=== PATIENT | male | born 1985 | race Caucasian/White ===

== ENCOUNTER 2018-05-07 06:21 | Day surgery (SDC) | payer BC, OTHER ==
[2018-05-02 14:29] LABS: Albumin 4.2 g/dL (3.4-5.0); Bilirubin Direct 0.1 mg/dL (0-0.2); Bilirubin Total 0.5 mg/dL (0.2-1.0); Potassium 4.4 mmol/L (3.5-5.1); Protein, Total 7.7 g/dL (6.4-8.2)
--- OUTSIDE RECORDS SUMMARY | 2018-05-07 06:23 | XMS REPORT | Summary of Care ---
:1985 Author Organization [facility] [place] Address [address], [place] [address]- Encounter HQ Encntr_alias(FIN) [id number] Date(s): 03/11/17 - 03/11/17 [facility] [place] [address] [place] [address]- [phone] Discharge Disposition: Home or Self Care Attending Physician: Maldonado Urias MD Vital Signs No data available for this section Problem List No data available for this section Allergies, Adverse Reactions, Alerts Substance Reaction Severity Status NKDA Active Medications No data available for this section Results No data available for this section Immunizations No data available for this section Procedures No data available for this section Social History No data available for this section Assessment and Plan No data available for this section
--- OUTSIDE RECORDS SUMMARY | 2018-05-07 06:23 | XMS REPORT | Continuity of Care Document ---
:1985 Author Organization Interface Problems Problem Status Onset Classification Date Comments Source Date Reported Complex tear of 10/12/2017 [facility] lateral meniscus, 8 current injury, left knee, subsequent encounter LT KNEE Active [facility] 7 S80.02XA - Active [facility] "CONTUSION OF 7 [place] LEFT KNEE, INIT EYE/ BLURRINESS Active [address] Pain in left knee 10/12/2017 [facility] Stiffness of left 07/31/2017 [facility] knee, not elsewhere classified Muscle weakness 07/31/2017 [facility] Other muscle 07/31/2017 [facility] spasm Localized edema 07/31/2017 [facility] Unspecified 07/31/2017 [facility] abnormalities of gait and mobility Medications Medication Details Route Status Patient Ordering Order Source Instructions Provider Date ofloxacin 2 drp, LEFT LEFT EYE Active [facility] ophthalmic EYE, QID, 5 013 Medical 0.3% solution ml, Center Substitute Allowed Allergies, Adverse Reactions, Alerts Substance Category Reaction Severity Reaction Status Date Comments Source type Reported Immunizations Immunization Date Given Site Status Last Updated Comments Source Results Order Results Value Reference Date Interpretation Comments Source Name Range Knee wo Knee wo EXAM: MR RIGHT KNEE WITHOUT CONTRAST 03/11 - [facility] contrast contrast /2016 - [place] [facility] MRI This report was dictated by a Fine Sander/Fellow. I have personally reviewed the images as well as the Resident's interpretation and agree with the findings. DATE: 03/11/2017 3:00 PM NEEDLE MOLDER Read by: Peterson Hernandez DO Resident: Peterson Hernandez DO Dictated Date/time: 03/12/17 07:54 Electronically Signed by: Lillie Arguelles MD 03/12/17 12:21 FINAL REPORT INDICATION: - S80.01XA Contusion of right knee, initial encounter, right knee pain after slipping 3 weeks ago COMPARISON: None. TECHNIQUE: Multiplanar, multisequence noncontrast MR imaging of the knee. UT SECTION: MSK FINDINGS: MENISCI: Medial meniscus: Intact. Nonspecific PD signal within the posterior horn of the medial meniscus. No meniscal tears. Capsular ligaments intact. Lateral meniscus: Intact. Capsular ligaments intact. LIGAMENTS: ACL: The anterior cruciate ligament is intact.. PCL: The posterior cruciate ligament is intact. MCL: Mild edema seen around the MCL which may relate to low-grade sprain. No tears. LCL complex: The lateral collateral ligament complex is intact. EXTENSOR MECHANISM: The quadriceps tendon, patella and the patellar tendon are intact. MUSCLES: No signal abnormality in the muscles. CARTILAGE: Patellofemoral compartment: Deep chondral fissuring at the trochlear groove without underlying subchondral edema. Patellar cartilage is maintained. Medial compartment: No chondral defects. Lateral compartment: No chondral defects. BONE: No fractures. Visualized bone marrow signal is normal. SOFT TISSUE: There is a multiloculated leaky Lopez's cyst with leakage and fluid seen tracking along the superior fascial planes. Trace joint fluid . Minimal amount fluid in the deep infrapatellar bursa. No abnormality of the neurovascular structures. IMPRESSION: 1. Grade 1 MCL sprain. 2. Focal chondral fissuring of the trochlear groove. 3. Leaking Lopez's cyst. Knee wo Knee wo EXAM: MR LEFT KNEE WITHOUT CONTRAST 01/21 - [facility] contrast contrast /2016 - [place] [facility] MRI This report was dictated by a Fine Sander/Fellow. I have personally reviewed the images as well as the Resident's interpretation and agree with the findings. DATE: 01/21/2017 11:28 AM CDT Read by: Rajat Gant ( Fellow Resident: Rajat Gant (Fellow Dictated Date/time: 01/21/17 15:47 Electronically Signed by: Jatin Vega MD 01/22/17 02:54 FINAL REPORT INDICATION: Left knee pain, history of ACL reconstruction in August 2015 COMPARISON: None. TECHNIQUE: Multiplanar, multisequence noncontrast MR imaging of the knee. FINDINGS: MENISCI: Medial meniscus: Minimal undersurface irregularity of the posterior horn of the medial meniscus. Capsular ligaments intact. Lateral meniscus: Focal high signal and undersurface irregularity of the posterior root ligament. Intrasubstance degeneration of the anterior horn with adjacent multiseptated 1.4 x 1.4 x 1.0 cm para meniscal cyst, consistent with prior injury. LIGAMENTS: ACL: Postsurgical changes related to prior ACL graft reconstruction with intact ACL graft.. Graft angle is 65 degrees. 1.6 cm focus of arthrofibrosis anterior to the ACL graft. No cystic change or expansion of the tibial or femoral tunnels. PCL: The posterior cruciate ligament is intact. MCL: The medial collateral ligament is intact. LCL: The lateral collateral ligament complex is intact. EXTENSOR MECHANISM: The quadriceps tendon, patella and the patellar tendon are intact. MUSCLES: No signal abnormality in the muscles. CARTILAGE: Patellofemoral compartment: Minor fraying of the patellar apex. Full- thickness cartilage loss of the trochlear groove without underlying reactive bone marrow edema. Medial compartment: Minor partial thickness cartilage fissuring of the medial third of the medial compartment. Lateral compartment: Diffuse thinning of the posterior flexion zone cartilage with no focal chondral defect. BONE: No fractures. Visualized bone marrow signal is normal. SOFT TISSUE: Small joint effusion. Small popliteal cyst. No abnormality of the neurovascular structures. IMPRESSION: 1. Intact ACL graft with small focus of arthrofibrosis anterior to the graft. 2. Intrameniscal degenerative change of the anterior horn of the lateral meniscus with adjacent para meniscal cyst, compatible with prior injury. 3. High signal and undersurface irregularity of the posterior root ligament of the lateral meniscus. 4. Full-thickness cartilage fissuring of the trochlear groove. 5. Diffuse cartilage thinning of the posterior flexion zone of the lateral femoral condyle. Vital Signs Vital Sign Value Date Comments Source Weight 117.273 04/28/2012 [facility] Height 190.50 cm 04/28/2012 [facility] Encounters Location Location Encounter Encounter Reason Attending ADM DC Status Source Details Type Number For Provider Date Date Visit [facility] Emergency [id number] PATEL 04/28 04/28 Active [facility] /2012 [facility] Outpt Diag [id number] Maldonado 01/21 01/22 [facility] [place] [facility] Outpt Diag [id number] Maldonado 03/11 03/12 [facility] Outpatient Services [facility] [place] [facility] OP Therapy [id number] Maldonado 03/26 04/25 [facility] Patients [facility] OP Therapy [id number] Maldonado 04/26 05/26 [facility] Patients [facility] OP Therapy [id number] Maldonado 06/07 07/07 [facility] Patients [facility] Procedures Procedure Code Date Perfomer Comments Source
--- OUTSIDE RECORDS SUMMARY | 2018-05-07 06:23 | XMS REPORT | Summary of Care ---
:1985 Author Organization [facility] Address Unavailable , Encounter HQ Dustin(JADE) [id number] Date(s): 03/26/17 - 04/24/17 [facility] Encounter Diagnosis Complex tear of lateral meniscus, current injury, left knee, subsequent encounter (Final) - 04/29/17 Pain in left knee (Final) - Stiffness of left knee, not elsewhere classified (Final) - Muscle weakness (generalized) (Final) - Other muscle spasm (Final) - Localized edema (Final) - Unspecified abnormalities of gait and mobility (Final) - Discharge Disposition: Home or Self Care Attending [...]
--- OUTSIDE RECORDS SUMMARY | 2018-05-07 06:23 | XMS REPORT | CCD ---
:1985 Author Organization [facility] Care Team Providers Name Role Phone Gaurang Rose Consult[employer] Provider Allergies, Adverse Reactions, Alerts Substance Reaction Status NKDA Active Medications Medication Instructions Start Date End Date Status ofloxacin ophthalmic 0.3% 2 drp, LEFT EYE, QID, 5 ml, 04/28/2012 Ordered solution Substitute Allowed Vital Signs Most recent to oldest [Reference Range]: 1 Height 190.50 cm (04/28/2012 14:22:00) Weight 117.273 kg (04/28/2012 14:22:00)
--- OUTSIDE RECORDS SUMMARY | 2018-05-07 06:23 | XMS REPORT | Summary of Care ---
:1985 Author Organization [facility] Address Unavailable , Encounter HQ Sinar_adilene(JADE) [id number] Date(s): 03/26/17 - 04/24/17 [facility] Discharge Disposition: Home or Self Care Attending [...]
--- OUTSIDE RECORDS SUMMARY | 2018-05-07 06:23 | XMS REPORT | Summary of Care ---
:1985 Author Organization [facility] [place] Address [address] [place], [place] [address]- Encounter HQ Encntr_alias(FIN) [id number] Date(s): 01/21/17 - 01/21/17 [facility] [place] [address] [place] [address]- [phone] Discharge Disposition: Home or Self Care Attending [...]
--- OUTSIDE RECORDS SUMMARY | 2018-05-07 06:24 | XMS REPORT | Summary of Care ---
:1985 Author Organization [facility] Address Unavailable , Encounter HQ Sinavarsha_manpetar(JADE) [id number] Date(s): 06/07/17 - 07/06/17 [facility] Encounter Diagnosis Complex tear of lateral meniscus, current injury, left knee, subsequent encounter (Final) - 07/12/17 Pain in left knee (Final) - Discharge Disposition: Home or Self [...]
--- OUTSIDE RECORDS SUMMARY | 2018-05-07 06:24 | XMS REPORT ---
:1985 Author Organization [facility] Address [address] [place] [address] Dr. Trujillo [address] [place] [address] Care Team Providers Name Role Phone Unavailable Unavailable Unavailable Problems This patient has no known problems. Allergies, Adverse Reactions, Alerts This patient has no known allergies or adverse reactions. Medications This patient has no known medications.
--- OUTSIDE RECORDS SUMMARY | 2018-05-07 06:24 | XMS REPORT | Summary of Care ---
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 Quantity: 30 Refills: 0 JHON VILLATORO Start : 20-Mar-2017 Active Allergies and Adverse Reactions Name Dates Details Allergy history not documented Status: Procedures Procedure Dates Details [U] XR KNEE 4 OR MORE VWS BILATERAL Date: 11-Mar-2017 Immunization Name Dates Details Immunizations not documented Social History Name Dates Details Unknown if ever smoked Vital Signs Date Test Result Details No Known Vitals to report Results Date Description Value Details Results not documented Plan of Care Name Dates Details Planned Observations Planned Goals not documented Planned Encounters Appointment; JHON MAURICIO, P.AChristelle On: 07-May-2017 13:45 Interventions Provided Labs/Procedures/Imaging[U] XR KNEE 4 OR MORE VWS BILATERAL; To Be Done: 11 Mar 2017[U] XRAY KNEE 4 OR MORE VWS BILATERAL [id number]; Done: 11 Mar 2017 Instructions Name Dates Details Instructions not documented Encounters Appointment; DARIAN KAPLAN NP On: 21-Jan-2017 9:30 Encounter Diagnosis: Problem not documented Appointment; DARIAN KAPLAN NP On: 28-Jan-2017 15:45 Encounter Diagnosis: Problem not documented Appointment; JHON MAURICIO P.A. On: 11-Mar-2017 11:30 Encounter Diagnosis: Problem not documented
--- OUTSIDE RECORDS SUMMARY | 2018-05-07 06:24 | XMS REPORT | Summary of Care ---
:1985 Author Organization [facility] Address Unavailable , Encounter HQ Sinar_manpetar(JADE) [id number] Date(s): 04/26/17 - 05/25/17 [facility] Encounter Diagnosis Complex tear of lateral meniscus, current injury, left knee, subsequent encounter (Final) - 05/29/17 Pain in left knee (Final) - Discharge [...]
[2018-05-07] MEDS ORDERED: Ringers Lactate 1,000 ML IV ONE (06:36)
[2018-05-07] MEDS ORDERED: GLYCOPYRROLATE 0.2 MG/ML SYR ONE ×2 (07:29)
[2018-05-07] MEDS ORDERED: ROCURONIUM 50 MG/5 ML VIAL IV ONE ×2 (07:29→08:50)
[2018-05-07] MEDS ORDERED: PROPOFOL 200 MG/20 ML VIAL IV ONE (07:29)
[2018-05-07] MEDS ORDERED: LIDOCAINE 2% MPF 5 ML VIAL ONE ×2 (07:30→08:48)
[2018-05-07] MEDS ORDERED: MIDAZOLAM HCL 2 MG/2 ML INJ ONE (07:31)
[2018-05-07] MEDS ORDERED: FENTANYL CITR 250 MCG/5 ML ONE (07:31)
[2018-05-07] MEDS ORDERED: ONDANSETRON 4 MG/2 ML VIAL ONE (07:36)
[2018-05-07] MEDS ORDERED: CEFOXITIN/SWI 1gm 1 GM/10 ML SYR ONE (08:00)
[2018-05-07] MEDS: BUPIVACAINE 0.5% PF 10 ML VIAL ONE ×2 (08:19→08:58)
[2018-05-07] MEDS: Ringers Lactate 1,000 ML IV ONE ×2 (08:40→08:58)
[2018-05-07] MEDS ORDERED: BUPIVACAINE 0.5% PF 10 ML VIAL ONE (09:07)
[2018-05-07] MEDS ORDERED: Mastisol Adhesive Liq ONE (09:12)
[2018-05-07] MEDS: FENTANYL CITR 250 MCG/5 ML ONE ×4 (09:37→09:56)
[2018-05-07] MEDS ORDERED: ONDANSETRON HCL 40 MG/20 ML VIAL ONE (10:04)
--- NOTE | 2018-05-07 10:20 | P.BOP ---
Preoperative diagnosis: acute cholecystitis, biliary dyskinesia, RUQ abd pain Postoperative diagnosis: same, intrabdominal adhesions Primary procedure: Laparoscopic cholecystectomy Secondary procedure: Laparoscopic lysis of adhesions Supervisor [employer]: Diana Reeder) Estimated blood loss: <10cc Specimen: gb Findings: see dictation Anesthesia: General Complications: None Transferred to: Recovery Room Condition: Good
[2018-05-07] MEDS ORDERED: KETOROLAC 30 MG/ML INJ ONE (10:24)
[2018-05-07] MEDS ORDERED: CODEINE 30MG/APAP 300MG TAB ONE (11:05)
[2018-05-07 13:02] VITALS: TEMP 97.6
[2018-05-07 13:04] VITALS: BP 127/57; O2SAT 97
--- NOTE | 2018-05-07 21:34 | OP ---
Date of Procedure: 05/07/2018 Surgeon: Aneudy Hernandez MD Preoperative Diagnosis: Acute cholecystitis. Postoperative Diagnoses: 1.Acute cholecystitis. 2.Intraabdominal adhesions. Anesthesia: General plus local. Procedures: Laparoscopic cholecystectomy, laparoscopic lysis of adhesions. Indications: This is the case of a 33-year-old patient who comes to us with on and off abdominal sharlene n, epigastric, right upper quadrant, radiating to the back, with nausea and vomiting, postprandial. He has been trying to control his diet, but is still not improving. He was diagnosed with biliary dy skinesia and cholecystitis. He was also to see his finishing operator to evaluate other diagnosis in the differential diagnosis. He wants the gallbladder removed. So, the benefits, alternatives, and risks of laparoscopic, possible open cholecystectomy were fully explained, which included, but were n ot limited to infection, bleeding, damage to adjacent structures, anesthesia complications, choledoch olithiasis, bile leak, pancreatitis, SD, and even . He also understands this may not relieve an y symptoms. He might need more than one surgical intervention. He understood and signed a consent. Description Of Procedure: The patient was brought to the operating room and placed in supine positio n. Anesthesia was done without complication. Abdominal area was prepped and draped in usual sterile fashion. Marcaine 0.5% was injected for local anesthetic followed by sharp incision of the skin in the infraumbilical region. Incision was carried down to fascia, which was opened under direct vision . Peritoneum was encountered, opened under direct vision. Vicryl #1 was placed inside the fascia. Magali trocar was carefully introduced. No bleeding was obtained. I placed 3 more trocars, 5 mm eac h one of them, in the right upper quadrant under direct visualization. This allowed me to visualize the area of the gallbladder. There were many adhesions of omentum to the gallbladder and liver. In order for me to continue with surgery, I had to do the lysis of adhesions. So, we took some extra ti me, used Endo Kamran, connected to Bovie cauterizer, and carefully removed the adhesions to the oment um. Then, once the adhesions were down, we were able to visualize the infundibulum better and also t he triangle of Calot. We visualized the triangle of Calot, obtaining critical view of safety. Cysti c duct and cystic artery were clearly isolated free circumferentially, and a connection between those and the gallbladder was clearly identified. I proceeded to ligate those by using at least 3 clips p roximal, 1 clip distal, and ligation in the middle. The same was done with the cystic artery. No bi le leak. No bleeding. The gallbladder was removed from liver using Bovie cauterizer and removed fro m abdominal cavity using an EndoCatch through the umbilical incision. The area was inspected once ag ain. The area of the lysis of adhesions was intact with no bleeding. Clips were intact with no bile leak and no bleeding. At that moment, I proceeded to remove the trocars under direct vision, deflat ed pneumoperitoneum, closed the fascia with #1 Vicryl, irrigated subcutaneous tissue, closed that wit h 3-0 chromic, and skin in subcuticular fashion with 3-0 chromic and Steri-Strips on top. Sponge cou nt and instrument counts were correct. The patient tolerated the procedure well. The patient was se nt to recovery in stable condition. RANDAL/MIKI Voice ID: [id number] Report ID: [id number]
--- NOTE | 2018-05-07 21:37 | DS ---
Date of Discharge: 05/07/2018 Diagnoses: Acute cholecystitis and biliary dyskinesia. Procedure: Laparoscopic cholecystectomy. Disposition: Home. Activity: As tolerated. No heavy lifting. Followup: Follow up in my office in 1 week. Call for appointment at [phone]. Keep the area dry fo r 48 hours, then may shower. Keep Steri-Strips intact. Medications: For medications, see orders. RANDAL/MIKI Voice ID: [id number] Report ID: [id number]
== END 2018-05-07 11:55 | disposition home or self-care (01) ==
LOC: OR 06:21
PROVIDERS: ATTEND Surgery
PROC: 0DNW4ZZ Release Peritoneum, Percutaneous Endoscopic Approach (ICD-10-PCS; 2018-05-07)
PROC: 0FT44ZZ Resection of Gallbladder, Percutaneous Endoscopic Approach (ICD-10-PCS; principal; 2018-05-07 07:30)
DX: K81.0 Acute cholecystitis (principal); K66.0 Peritoneal adhesions (postprocedural) (postinfection); K82.8 Other specified diseases of gallbladder; Z88.8 Allergy status to other drugs, medicaments and biological substances; Z80.0 Family history of malignant neoplasm of digestive organs; Z80.1 Family history of malignant neoplasm of trachea, bronchus and lung; Z80.3 Family history of malignant neoplasm of breast; Z80.8 Family history of malignant neoplasm of other organs or systems; Z82.49 Family history of ischemic heart disease and other diseases of the circulatory system; Z83.3 Family history of diabetes mellitus
CPT/HCPCS: 36415; 80048; 80076; 82150; 83690; 85025; 88304; J2250; J2405; J2704; J3010

== ENCOUNTER 2021-05-22 07:00 | Emergency (ER) | payer BC ==
--- OUTSIDE RECORDS SUMMARY | 2021-05-22 07:05 | XMS REPORT | Continuity of Care Document ---
:1985 Author Organization [facility] t Address [address] [place] [address] Care Team Providers Name Role Phone Unavailable Unavailable Unavailable Problems Condition Condition Condition Status Onset Resolution Last Treating Co mments Source Name Details Category Date Date Treatment Clinician Date LT KNEE Diagnosis Active 2016-042017-06-14 Me [place]ia 2-11 14:01:00 l LT KNEE 08:00: [place] 00 Active 03/25/2017 [facility] S80.02XA - Diagnosis Active 2016-042017-01-21 [facility] "CONTUSION 0-02 10:55:00 l OF LEFT S80.02XA 00:01: [place]ra nn KNEE, INIT - 00 "CONTUSION OF LEFT KNEE, INIT Active 01/14/2017 [facility] [place] EYE/ Diagnosis Active 2012-04-28 Mem oria BLURRINESS 1-14 16:23:00 l EYE/ 00:00: [place] BLURRINESS 00 Active 04/28/2012 [facility] Pain in Problem 2017-10-12 Lencho merritt left knee 11:09:46 l Pain in [place] left knee 10/12/2017 [facility] Stiffness Problem 2017-07-31 Me moria of left 14:52:42 l knee, not [place] elsewhere Stiffness classified of left knee, not elsewhere classified 07/31/2017 [facility] Muscle Problem 2017-07-31 Memor ia weakness 14:52:42 l (generaliz Muscle Herm lacie ed) weakness (generaliz ed) 07/31/2017 [facility] Other Problem 2017-07-31 Memor ia muscle 14:52:42 l spasm Other [place] muscle spasm 07/31/2017 [facility] Localized Problem 2017-07-31 Me moria edema 14:52:42 l [place] Localized edema 07/31/2017 [facility] Unspecifie Problem 2017-07-31 M emoria d 14:52:42 l abnormalit Tobi n ies of Unspecifie gait and d mobility abnormalit ies of gait and mobility 07/31/2017 [facility] History of Past Illness Condition Condition Condition Status Onset Resolution Last Treating Co mments Source Name Details Category Date Date Treatment Clinician Date Complex Problem 2017-2017-10-12 2017-10-12 [facility] tear of 3-31 11:09:46 11:09:46 l lateral Complex 04:46: Tobi alfaro meniscus, tear of 56 current lateral injury, meniscus, left knee, current subsequent injury, encounter left knee, subsequent encounter 07/13/2017 10/12/2017 [facility] Allergies, Adverse Reactions, Alerts This patient has no known allergies or adverse reactions. Social History Social Habit Start Date Stop Date Quantity Comments Source Social History 2017-03-12 2017-03-12 [facility] 05:59:00 05:59:00 Medications Ordered Filled Start Stop Current Ordering Indication Dosage Frequency Signature Comments Components Source Medication Medication Date Date Medication? Clinician (SIG) Name Name ofloxacin Yes Gaurang 2 drp, Lencho merritt ophthalmic 14 [place] LEFT EYE, l 0.3% 22:05: Rose QID, 5 ml, Deidra nn solution 24 Substitute Allowed Vital Signs Vital Name Observation Time Observation Value Comments Source Weight 2012-04-28 20:22:00 [facility] Height 2012-04-28 20:22:00 190.50 cm [facility] Procedures This patient has no known procedures. Encounters Start End Encounter Admission Attending Care Care Encounter Source Date/Time Date/Time Type Type Clinicians Facility Department ID 2019-05-11 2019-05-12 Outpt Diag nullFlavo [facility] [id number] [facility] 20:05:00 05:59:00 Services r Outpatient 02 l [place] 2017-06-07 2017-07-07 OP Therapy nullFlavo [facility] [id number] Memoria 19:00:00 04:59:00 Patients r 02 l [place] 2017-04-26 2017-05-26 OP Therapy nullFlavo [facility] [id number] Memoria 16:00:00 05:59:00 Patients r 01 l [place] 2017-03-26 2017-04-25 OP Therapy nullFlavo [facility] [id number] Memoria 14:31:00 05:59:00 Patients r 00 l [place] 2017-03-11 2017-03-12 Outpt Diag [facility]Flavo [facility] [id number] Memoria 20:21:00 05:59:00 Services r Outpatient 01 l Imaging [place] 2017-01-21 2017-01-22 Outpt Diag [facility]Flavo [facility] [id number] Mem[facility] 15:47:00 04:59:00 Services r Outpatient 00 l [facility] 2012-04-28 2012-04-28 Emergency nullFlavo [facility] [id number] Memoria 14:07:00 16:17:00 r Medical 00 l [facility] Results This patient has no known results.
--- OUTSIDE RECORDS SUMMARY | 2021-05-22 07:05 | XMS REPORT | Clinical Summary ---
:1985 Author Organization [facility] MD [facility] Address [address] [place] [address] Care Team Providers Name Role Phone Layton Huerta MD Primary Care Provider Cassie Camara MD Unavailable Allergies Active Allergy Reactions Severity Noted Date Comments Celecoxib Itching, Rash Low 04/13/2017 Medications Medication Sig Dispensed Refills Start Date End Date Status amitriptyline 0 01/15/2020 Activ e (ELAVIL) 25 mg tablet omeprazole 0 01/15/2020 Active (PriLOSEC) 20 mg capsule ondansetron 0 01/18/2020 Active (ZOFRAN) 4 mg tablet prazosin 0 11/05/2019 Active (MINIPRESS) 5 mg capsule sertraline 0 12/22/2019 Active (ZOLOFT) 100 mg tablet sildenafil 0 11/16/2019 Active (VIAGRA) 50 MG tablet zolpidem (AMBIEN) 0 11/29/2019 A ctive 5 mg tablet gabapentin 0 10/04/2020 Active (NEURONTIN) 300 mg capsule baclofen 0 10/04/2020 Active (LIORESAL) 10 mg tablet HYDROcodone-acetam Take 1 tablet 40 tablet 0 11/30/2020 Active inophen (NORCO) 5 by mouth mg-325 mg per every 6 (six) tabletIndications: hours as Prostate nodule, needed for Acute moderate postoperative pain pain. neomycin enema 500 Insert 1 120 mL 0 10/28/2020 Discontinued MG/120 ML enema (500 mg 1 (Stop Taking at (AMB-CMPD)Indicati total) D ischarge) ons: Prostate rectally as nodule directed for a single dose. HYDROcodone-acetam Take 1 tablet 40 tablet 0 11/01/2020 Discontinued inophen (NORCO) 5 by mouth 1 (R eorder) mg-325 mg per every 6 (six) tabletIndications: hours as Prostate nodule, needed for Acute moderate postoperative pain pain. HYDROcodone-acetam Take 1 tablet 40 tablet 0 11/28/2020 Discontinued inophen (NORCO) 5 by mouth 1 (R eorder) mg-325 mg per every 6 (six) tabletIndications: hours as Prostate nodule, needed for Acute moderate postoperative pain pain. Active Problems Problem Noted Date Prostate nodule 02/05/2020 Encounters Date Type Specialty Care Team Description 01/05/2021 Refill Pain Medicine Del Cadena MD Prostate nod ule; Acute postopera tive pain 11/30/2020 Orders Only Pain Medicine Del Cadena MD Prostate nod ule; Acute postopera tive pain 11/25/2020 Refill Pain Medicine Del Cadena MD Prostate nod ule; Acute postopera tive pain 11/03/2020 Telephone Urology Steven Lara PA 11/01/2020 Orders Only Pain Medicine Del Cadena MD Prostate nod ule (Primary Dx); Other chronic p ostoperative pain; Acute postopera tive pain 11/01/2020 Orders Only Pain Medicine Joby Godoy MD 10/31/2020 Anesthesia Event Ambulatory Surgery Mian Agustin MD Van Wagenen, Kathleen A, LADY 10/31/2020 Surgery Ambulatory Surgery Brandon Huerta NEEDLE B IOPSY OF MD Layton PROSTATE(IN OR) 10/31/2020 Hospital Encounter Ambulatory Surgery Brandon Huerta Pr ostate nodule - MD Layton (Primary Dx) 11/01/2020 10/31/2020 Travel 10/28/2020 Anesthesia Event Anesthesiology Felix Pandya RN 10/28/2020 POEM Appointments Anesthesiology Brandon Huerta Prostat e nodule MD Layton 10/28/2020 Hospital Encounter Lab Brandon Huerta Prostate nodule MD [place] 10/28/2020 Clinical Support Covid Brandon Huerta Suspected COVID-19 (Primary Dx); MD Layton Prostate nodule Mark Fleming RN 10/28/2020 Travel 10/19/2020 Orders Only Urology Steven Lara, Prostate nod ye PA (Primary Dx) 10/12/2020 Telephone Urology Steven Lara PA 10/12/2020 Prep for Surgery Urology Steven Lara, Prostate nodule PA (Primary Dx) 10/07/2020 Office Visit Urology Brandon Huerta Prostate nodul e MD Layton 10/07/2020 Hospital Encounter Lab Brandon Huerta Prostate nodule MD Lay[place] 10/07/2020 Prep for Surgery Genitourinary Kokorogrant, Oncology MD Barron 10/07/2020 Travel 07/24/2020 Orders Only Covid Jordana, SARS-CoV-2 MD Arnie vaccination after 05/22/2020 Surgical History Surgery Date Site/Laterality Comments CHOLECYSTECTOMY 08/13/2018 - laproscopic 09/12/2018 ANTERIOR CRUCIATE LIGAMENT 04/15/2014 - Left REPAIR 04/14/2015 MEDIAL COLLATERAL LIGAMENT 04/15/2016 - Left AND LATERAL COLLATERAL 04/14/2017 LIGAMENT REPAIR, KNEE EGD 01/14/2020 - 02/13/2020 COLONOSCOPY 04/15/2019 - 05/15/2019 STOMACH SURGERY MN BIOPSY OF 10/31/2020 Anus/N/A Procedure: NEEDL E BIOPSY PROSTATE,NEEDLE/PUNCH OF PROSTAT E(IN OR); Surgeon: Brandon Huerta MD; Loca tion: [facility]; Servic e: UROLOGY MN CHG ECHO,TRANSRECTAL 10/31/2020 Anus/N/A Procedur e: ULTRASOUND, TRANSRECTAL; Jimenez rgeon: Brandon mancia MD; Location: [facility]; Service: UROLOGY MN CHG 3D RENDERING 10/31/2020 Anus/N/A Procedure: 3 D IMAGE W/INTERP&POSTPROC DIFF WORK ROBERT CARDOSO, CT/MRI/US STATION WITH INDEPENDENT WORKSTATION; Jimenez rgeon: Brandon mancia MD; Location: [facility]; Service: UROLOGY Medical History Medical History Date Comments Pancreatitis Acid reflux Posttraumatic stress disorder Family History Medical History Relation Name Comments Prostate cancer Brother Thyroid cancer Brother Colon cancer Father Kidney cancer Father Liver cancer Father Lung cancer Father Pancreatic cancer Father Prostate cancer Father Pancreatic cancer Maternal Grandfather Pancreatic cancer Maternal Grandmother Breast cancer Mother Relation Name Status Comments Brother Father Maternal Grandfather Maternal Grandmother Mother Social History Tobacco Use Types Packs/Day Years Used Date Light Tobacco Smoker Smokeless Tobacco: Never Used Alcohol Use Standard Drinks/Week Comments Not Currently 0 (1 standard drink = 0.6 oz pure alcoho l) Sex Assigned at Date Recorded Not on file Job Start Date Occupation Industry Not on file Not on file Not on file Obstetrics History Last Filed Vital Signs Vital Sign Reading Time Taken Comments Blood Pressure 110/67 11/01/2020 12:56 PM CDT Pulse 88 11/01/2020 12:56 PM CDT Temperature 36.9 C (98.4 F) 11/01/2020 12:56 PM CDT Respiratory Rate 12 11/01/2020 12:56 PM CDT Oxygen Saturation 95% 11/01/2020 12:56 PM CDT Inhaled Oxygen Concentration - - Weight 104.7 kg (230 lb 13.2 oz) 10/07/2020 12:53 PM CDT Height 190.5 cm (6' 3") 10/07/2020 12:53 PM CDT Body Mass Index 28.85 10/07/2020 12:53 PM CDT Plan of Treatment Health Maintenance Due Date Last Done Comments COVID-19 Vaccination (1) 1990 Procedures Procedure Name Priority Date/Time Associated Comments Diagnosis POC GLUCOSE SCREEN Routine 10/31/2020 8:19 Resul ts for this PM CDT procedure are i n the results section. POC GLUCOSE SCREEN Routine 10/31/2020 4:00 Resul ts for this PM CDT procedure are i n the results section. 3D IMAGE RENDERING, 10/31/2020 2:[address]/MRI/US WITH PM CDT INDEPENDENT WORKSTATION ULTRASOUND, TRANSRECTAL 10/31/2020 2:50 Prostate nodu le PM CDT NEEDLE BIOPSY OF 10/31/2020 2:50 Prostate nodule PROSTATE(IN OR) PM CDT PATHOLOGY BIOPSY Routine 10/31/2020 12:34 Prostate nodule Resu lts for this INTERPRETATION PM CDT procedure are in the results section. COVID-19 (SARS-COV-2) Routine 10/28/2020 9:39 Suspected COVID -19 Results for this PCR-ASYMPTOMATIC MC AM CDT procedur e are in the results section. CLOT EXPIRATION DATE Routine 10/28/2020 9:20 Res ults for this AM CDT procedure are i n the results section. TMP INTERPRETATION Routine 10/28/2020 9:20 Resul ts for this ANTIBODY SCREEN NEGATIVE AM CDT pro cedure are in the results section. ANTIBODY SCREEN Routine 10/28/2020 9:20 Prostate nodule Resul ts for this AM CDT procedure are i n the results section. ABORH Routine 10/28/2020 9:20 Prostate nodule Results for this AM CDT procedure are i n the results section. FRACTIONATED BILIRUBIN Routine 10/28/2020 9:20 Prostate nodul e Results for this AM CDT procedure are i n the results section. TOTAL PROTEIN Routine 10/28/2020 9:20 Prostate nodule Results for this AM CDT procedure are i n the results section. ASPARTATE Routine 10/28/2020 9:20 Prostate nodule Results for this AMINOTRANSFERASE AM CDT procedure a re in the results section. ALANINE AMINOTRANSFERASE Routine 10/28/2020 9:20 Prostate nod ule Results for this AM CDT procedure are i n the results section. ALKALINE PHOSPHATASE Routine 10/28/2020 9:20 Prostate nodule Results for this AM CDT procedure are i n the results section. ALBUMIN LEVEL Routine 10/28/2020 9:20 Prostate nodule Results for this AM CDT procedure are i n the results section. CALCIUM LEVEL TOTAL Routine 10/28/2020 9:20 Prostate nodule R esults for this AM CDT procedure are i n the results section. .GLOMERULAR FILTRATION Routine 10/28/2020 9:20 Prostate nodul e Results for this RATE AM CDT procedure are i n the results section. SERUM CREATININE Routine 10/28/2020 9:20 Prostate nodule Resu lts for this AM CDT procedure are i n the results section. ELECTROLYTE PANEL Routine 10/28/2020 9:20 Prostate nodule Res ults for this AM CDT procedure are i n the results section. BLOOD UREA NITROGEN Routine 10/28/2020 9:20 Prostate nodule R esults for this AM CDT procedure are i n the results section. GLUCOSE LEVEL Routine 10/28/2020 9:20 Prostate nodule Results for this AM CDT procedure are i n the results section. MANUAL DIFFERENTIAL Routine 10/28/2020 9:20 Prostate nodule R esults for this AM CDT procedure are i n the results section. Results CBC Routine 10/28/2020 9:20 Prostate nodule Results for this AM CDT procedure are i n the results section. TYPE AND SCREEN Routine 10/28/2020 9:20 Prostate nodule AM CDT HEMOGLOBIN A1C Routine 10/28/2020 9:20 Prostate nodule Result s for this AM CDT procedure are i n the results section. COMPREHENSIVE METABOLIC Routine 10/28/2020 9:20 Prostate nodu le PANEL AM CDT COMPLETE BLOOD COUNT W/ Routine 10/28/2020 9:20 Prostate nodu le DIFFERENTIAL AM CDT CONFIRM ABORH TYPE Routine 10/28/2020 9:17 Resul ts for this AM CDT procedure are i n the results section. GUA Routine 10/28/2020 9:11 Prostate nodule Results for this AM CDT procedure are i n the results section. MRI MULTI RECONSTRUCTION Routine 10/19/2020 2:05 Prostate nod ule Results for this ON INDEPENDENT PM CDT procedure are in WORKSTATION the results section. PROSTATE SPECIFIC Routine 10/07/2020 12:44 Prostate nodule Res ults for this ANTIGEN PM CDT procedure are i n the results section. after 05/22/2020 Results (ABNORMAL) POC Glucose Screen (10/31/2020 8:19 PM CDT)Only the most recent of2 resultswithin the time period is included. POC Glucose 111 (H) 70 - 99 mg/dL POC [facility] Comment: RN Notified Capillary blood samples, e.g . obtained by fingerstick, may have inaccurate results in patients with decreased peripheral blood flow. Method description: All resu lts are measured using Electrochemistry test methodology. The glucose in the sample mixes with the reagents on the test strip. The reaction produces an electric current. The amount of current produced is proportional to the glucose concentration in the blood. PO Sample Type Capillary POC [facility], [address], [place] [address]; Manager Service Desk: Anahi Velazco MD Specimen Blood Performing Organization Address City/State/ZIP Code Phon e Number POC [facility] Pathology Biopsy Interpretation (10/31/2020 12:34 PM CDT) Pathologist Sig nature Submitted Clinical Prostate nodule [facility] History [N40.2] Diagnosis A: Prostate gland, 1. left lateral base: [facility] Electronically signed Fibromuscular tissue, and, t hick smooth muscle bundles, no prostatic glands or tumor present. by Isabelle Valdes MD on 11/02/2020 at B: Prostate gland, 2. left lateral mid: 10:19 PM Prostatic tissue, no tumor present. C: Prostate gland, 3. left lateral apex: Prostatic tissue, no tumor present. D: Prostate gland, 4. left medial base: Prostatic tissue, no tumor present. E: Prostate gland, 5. left medial mid: Prostatic tissue, no tumor present. F: Prostate gland, 6. left medial apex: Prostatic tissue, no tumor present. G: Prostate gland, 7. right medial base: Prostatic tissue, no tumor present. H: Prostate gland, 8. right medial mid: Prostatic tissue, no tumor present. I: Prostate gland, 9. right medial apex: Prostatic tissue, no tumor present. J: Prostate gland, 10. right lateral base: Prostatic tissue, no tumor present. K: Prostate gland, 11. right lateral mid: Prostatic tissue, no tumor present. L: Prostate gland, 12. right lateral apex: Prostatic tissue with focal atrophy, and, focal chronic inflammation, no tumor present. PXT/FAS1 Gross Description A: [facility] Prostate gland, 1. left late ral base: 1 pink-red core biopsy 0.6 x 0.1 cm, entirely submitted in A1. JX B: Prostate gland, 2. left late ral mid: 1 pale-orozco core biopsy 1.1 x 0.1 cm, entirely submitted in B1. JX C: Prostate gland, 3. left late ral apex: 1 pale-orozco core biopsy 1.4 x 0.1 cm, entirely submitted in C1. JX D: Prostate gland, 4. left medi al base: 1 pale-orozco core biopsy 0.6 x 0.1 cm, entirely submitted in D1. JX E: Prostate gland, 5. left medi al mid: 1 pale-orozco core biopsy 0.5 x 0.1 cm, entirely submitted in E1. JX F: Prostate gland, 6. left medi al apex: 1 pale-orozco core biopsy 0.4 x 0.1 cm, entirely submitted in F1. JX G: Prostate gland, 7. right med ial base: 1 pale-orozco core biopsy 1.2 x 0.1 cm, entirely submitted in G1. JX H: Prostate gland, 8. right med ial mid: 1 pale-orozco core biopsy 1.2 x 0.1 cm, entirely submitted in H1. JX I: Prostate gland, 9. right med ial apex: 1 pale-orozco core biopsy 1.3 x 0.1 cm, entirely submitted in I1. JX J: Prostate gland, 10. right la teral base: 1 pale-orozco core biopsy 1.6 x 0.1 cm, entirely submitted in J1. JX K: Prostate gland, 11. right la teral mid: 1 pale-orozco core biopsy 1.4 x 0.1 cm, entirely submitted in K1. JX L: Prostate gland, 12. right la teral apex: 1 pale-orozco core biopsy 1.5 x 0.1 cm, entirely submitted in L1. JX Disclaimer "Some tests reported [facility] here may have been developed and performance characteristics determined by [facility] Pathology and Laboratory Medicine. These tests have not been specifically cleared or approved by the U.S. Food and Drug Administration. If applicable, controls were reviewed and showed appropriate reactivity." Specimen Tissue - Prostate Gland Tissue - Prostate Gland Tissue - Prostate Gland Tissue - Prostate Gland Tissue - Prostate Gland Tissue - Prostate Gland Tissue - Prostate Gland Tissue - Prostate Gland Tissue - Prostate Gland Tissue - Prostate Gland Tissue - Prostate Gland Tissue - Prostate Gland Performing Organization Address City/State/ZIP Code Phon e Number [facility] [place] [address] [address] COVID-19 (SARS-CoV-2) PCR-Asymptomatic (10/28/2020 9:39 AM CDT) COVID19 (SARS Not Detected Not Detected [facility] CoV-2) Result Comment: [facility] This test is a qualitative r everse-transcriptase polymerase chain reaction (RT- PCR) developed for the Kristian SHAUNA 6800 system and intended for the detection of SARS CoV-2 RNA in human nasopharyngeal specimens from patients who meet COVID- 19 clinical and/or epidemiological crite merritt. This assay has been approved by the FDA for use only under Emergency Use Authorization (EUA) in laboratories that have been CLIA-certified to perform moderate-complexity and high-complexity tests. The performance characteristics of this assa y were verified by the Microbiology Laboratory at [facility], CLIA Accreditation #: [id number] and CAP Accreditation #: [id number]. Results must be interpreted within the context of all relevant clinical and laboratory findings and shou ld not form the sole basis for a diagnosis or treatment decision. "Presumptive Positive" resul ts are due to partial amplification of SARS-CoV-2 targets and indicates low amounts of virus present in the specimen at or near the limit of detection. Regardless, individuals with "Presumptive Positive" results should be managed per institutional gu idelines as individuals positive for SARS-CoV-2 virus, including use of appropriate infection control protocols. Internal controls are includ ed to assess for possible amplification inhibitors. If inhibition is detected, testing is repeated and if inhibition is confirmed the specimen is resulted as "Invalid". When an "Invalid" result occur, it is recommended to wait 3 days before submitting a new specimen for nicki ting if clinically indicated. COVID19 SARS [employer]PERVISOR Swab [facility] COVID19 SARS Pre-OR Procedure [facility] Indication CANCER CENTER Specimen Nasopharyngeal Swab Performing Organization Address [facility] Phon e Number [facility] CANCER Unless otherwise noted, [address] all lab tests performed by: Division of Pathology and Laboratory Medicine [address] [place] [address] .Serum Creatinine (10/28/2020 9:20 AM CDT) Pathologist [facility] Creatinine 0.87Comment: Testing 0.67 - 1.17 mg/dL [facility] Performed at [facility] Direct Service Provider [facility], [facility] [facility], [address], [place] [id number] Specimen Blood Performing Organization Address [facility] Phon e Number [facility] [address] [facility] [place] [place] [address] [address] (ABNORMAL) .CBC (10/28/2020 9:20 AM CDT) Pathologist [facility] WBC 5.1 4.0 - 11.0 K/uL [facility] RBC 5.17 4.50 - 6.00 [facility] M/uL Hgb 16.2Comment: As part 14.0 - 18.0 [facility] of CBC or as an gm/dL individual orderable testing performed at [facility] Direct Service Provider [facility], [address] [place] [address], [address], [place] [address] Hct 47.7Comment: As part 40.0 - 54.0 % [facility] of CBC or as an individual orderable testing performed at [facility], [address] [place] [address], [address], [place] [address] MCV 92 82 - 98 fL [facility] MCH 31.3 (H) 27.0 - 31.0 pg [facility] MCHC 34.0 31.0 - 36.0 [facility] gm/dL RDW-SD 41.0 35.1 - 46.3 fL [facility] RDW-CV 12.0 12.0 - 15.5 % [facility] Platelet count 217Comment: As part 140 - 440 K/uL [facility] of CBC or as an individual orderable testing performed at [facility], [address] [place] [address], [address], [place] [address] MPV 9.0 4.0 - 10.4 fL [facility] INRBC 0.0 <=0.0 % [facility] Comment: The INRBC (instrument NRBC) value reflects the enumera tion of nucleated red blood cells contained in a 200uL samp le of whole blood analyzed by the instrument. This value may differ from the NRBC value reported in a manual differ ential, which is based on a 100 cell differential. As part of CBC testing performed at [place] [id number] [facility], [address], [place] [address] Specimen Blood Performing Organization Address City/State/ZIP Code Phon e Number [facility] [address] [place] [address]. [place] [address] [address] Clot Expiration Date (10/28/2020 9:20 AM CDT) Pathologist Sig kezia T & S Expiration 10/31/2020 [facility] CENTER Specimen Blood Performing Organization Address City/State/ZIP Code Phon e Number [facility] Unless otherwise noted, [place] [id number] CENTER all lab tests performed by: Division of Pathology and Laboratory Medicine [address] [place] [address] Dolly Glomerular Filtration Rate (10/28/2020 9:20 AM CDT) Pathologist Javad mast eGFR-AA 128 >=60 mL/min/1.73 [facility] Comment: sq. m Normal eGFR >= 60 mL/min/1.73 m2 Note: The eGFR is calculated using the CKD-EPI equation. The eGFR declines with age. eGFR <60 mL/min/1.73 m2 is considered as "decreased". This equation should only be used for patients 18 and older. According to the National dney Foundation's Kidney Disease Outcome Quality Initiative (KDOQI) classification and 2012 Kidney Disease Improving Global Outcomes (KDIGO) Clinical Practice Guideline, the stage of CKD should be categorized based on estimated GFR. Stage Description GFR mL/min/1.73 m2 1 Normal or high GFR >=90 2 Mildly decreased GFR 60-89 3a Mildly to moderately decreased GFR 45-59 3b Moderately to severely decreased GFR 30-44 4 Severely decreased GFR 15-29 5 Kidney failure <15 Testing Performed at [facility] Direct Service Provider Bldg, [address] [place] [address], [address], [place] [address] eGFR-FIORELLA 111 >=60 mL/min/1.73 [facility] Comment: sq. m Normal eGFR >= 60 mL/min/1.73 m2 Note: The eGFR is calculated using the CKD-EPI equation. The eGFR declines with age. eGFR <60 mL/min/1.73 m2 is considered as "decreased". This equation should only be used for patients 18 and older. According to the National dney Foundation's Kidney Disease Outcome Quality Initiative (KDOQI) classification and 2012 Kidney Disease Improving Global Outcomes (KDIGO) Clinical Practice Guideline, the stage of CKD should be categorized based on estimated GFR. Stage Description GFR mL/min/1.73 m2 1 Normal or high GFR >=90 2 Mildly decreased GFR 60-89 3a Mildly to moderately decreased GFR 45-59 3b Moderately to severely decreased GFR 30-44 4 Severely decreased GFR 15-29 5 Kidney failure <15 Testing Performed at [facility] Direct Service Provider [facility], [facility] [facility], [address], [place] [address] Specimen Blood Performing Organization Address City/State/ZIP Code Phon e Number [address] [place] [address] [address] Fractionated Bilirubin (10/28/2020 9:20 AM CDT) Bili Total 0.5 <=1.2 mg/dL [facility] Comment: Indocyanine Green (ICG) may cause falsely elevated bilirubin results. Total and direct bilirubin must not be measured from samples containing indocyanine green. False elevation of total chiquita irubin can be seen in patients with IgG concentrations above 28 g/L. Testing Performed at [facility] Lab Direct Service Provider [facility], [address] [facility], [address], [place] [address] Bili Direct <0.2 <=0.3 mg/dL [facility] Comment: Indocyanine Green (ICG) may cause falsely elevated bilirubin results. Total and direct bilirubin must not be measured from samples containing indocyanine green. Testing Performed at [facility] Lab Direct Service Provider [facility], [address] [facility], [address], [place] [address] Bili Indirect See Note 0.0 - 0.9 [facility] Comment: mg/dL Unable to calculate Indirect Bilirubin result due to some parameters are outside reportable range Testing Performed at [facility] Lab Direct Service Provider [facility], [address] [facility], [address], [place] [address] Specimen Blood Performing Organization Address [facility] Phon e Number [facility] [address] [facility] [place] [place] [address] [address] TMP Interpretation Antibody Screen Negative (10/28/2020 9:20 AM CDT) TMP Auto Neg ABSC At the present time, patien t plasma shows no evidence of RBC alloantibodies. [facility] Interp Comment: [facility] CENTER TOÑA CISNEROS, Dictated by: TOÑA CISNEROS, Dictated Date/Time: 10.29.19 15:58 PM CDT Transcribed Date/Time: 10.28.2020 15:58 PM CDT Electronically Signed By: TOÑA CISNEROS, on 10.13 15:58 PM Specimen Blood Performing Organization Address City/[facility] Phon e Number [facility] Unless otherwise noted, [place] [address] CENTER all lab tests performed by: Division of Pathology and Laboratory Medicine [address] [place] [address] Dolly ABOR (10/28/2020 9:20 AM CDT) Pathologist Javad mast ABORh. O POS [facility] CENTER Specimen Blood Performing Organization Address City/[facility] Phon e Number [facility] Unless otherwise noted, [place] [id number] CENTER all lab tests performed by: Division of Pathology and Laboratory Medicine [address] (ABNORMAL) Differential (10/28/2020 9:20 AM CDT) Neutrophil % 54.0Comment: As part 42.0 - 66.0 % [facility] of Differential performed at [facility] Direct Service Provider [facility], [address] [place] [address], [address], [place] [address] Lymphocyte % 34.4 24.0 - 44.0 % [facility] Monocyte % 8.9 (H) 2.0 - 7.0 % [facility] Eosinophil % 1.9 1.0 - 4.0 % [facility] Basophil % 0.4 0.0 - 1.0 % [facility] IGRE % 0.4 0.0 - 0.4 % [facility] Comment: IGRE % count includes Metamyelocytes, Myelocytes, and Promyelocytes. As part of Differential perf ormed at [facility] Direct Service Provider [facility], [address] [facility] [facility], [address], [place] [address] Neutrophil Abs 2.77 1.70 - 7.30 [facility] K/uL Lymphocyte Abs 1.77 1.00 - 4.80 [facility] K/uL Monocyte Abs 0.46 0.08 - 0.70 [facility] K/uL Eosinophil Abs 0.10 0.04 - 0.40 [facility] K/uL Basophil Abs 0.02 0.00 - 0.10 [facility] K/uL IG Abs 0.02 0.00 - 0.04 [facility] K/uL Specimen Blood Performing Organization Address City/State/ZIP Code Phon e Number [facility] [address] [facility] [place] [place] [address] [address] Antibody Screen (10/28/2020 9:20 AM CDT) Pathologist Sig nature ABSC. Negative ABSC [facility] R Specimen Blood Performing Organization Address City/State/ZIP Code Phon e Number [facility] Unless otherwise noted, [place] [phone] [place] all lab tests performed by: Division of Pathology and Laboratory Medicine [address] BUN (10/28/2020 9:20 AM CDT) Pathologist Sig nature BUN 12Comment: Testing 6 - 23 mg/dL [facility] Performed at [facility] Lab Direct Service Provider [facility], [address] [facility], [place] [address] Specimen Blood Performing Organization Address [facility]/ZIP Code Phon e Number [facility] [address] [place] [address] [address] ALT (10/28/2020 9:20 AM CDT) Pathologist [facility] ALT 30Comment: Testing Performed <=41 U/L [facility] at [facility] Lab Direct Service Provider [facility], [address], [address], [place] [address] Specimen Blood Performing Organization Address [facility]/ZIP [facility] Phon e Number [facility] [address] [facility] [facility] [place] [place] [address] [address] Aspartate Aminotransferase (10/28/2020 9:20 AM CDT) Pathologist [facility] AST 21Comment: Testing Performed <=40 U/L [facility] at [facility] Lab Direct Service Provider [facility], [address], [place] [address] Specimen Blood Performing Organization Address [facility] Phon e Number [facility] [address] [facility] [facility] [place] [place] [address] [address] Total Protein (10/28/2020 9:20 AM CDT) Pathologist [facility] Total Protein 7.1Comment: Testing 6.4 - 8.3 g/dL [facility] Performed at [facility] Lab Direct Service Provider [facility], [address], [address], [place] [address] Specimen Blood Performing Organization Address [facility] Phon e Number [facility] [address] [facility] [place] [place] [address] [address] Alkaline Phosphatase (10/28/2020 9:20 AM CDT) Pathologist Sig [facility] Alk Phos 55Comment: Testing 40 - 129 U/L [facility] Performed at [facility] Lab Direct Service Provider [facility], [address], [address], [place] [address] Specimen Blood Performing Organization Address City/[facility]/ZIP Code Phon e Number [facility] [address] [place] [address] [address] Hemoglobin A1c (10/28/2020 9:20 AM CDT) Pathologist Sig nature A1C 5.2 4.3 - 5.6 % [facility] Comment: CANCER CENTER HbA1c values >=6.5% are diagnostic of diabetes mellitu s. Diagnosis should be confirmed by repeat testing. Therapeutic Action suggested: >8.0% HbA1c; Goal of therapy: <7.0% HbA1c Specimen Blood Performing Organization Address [facility] Phon e Number [facility] Unless otherwise noted, [place] [address] CENTER all lab tests performed by: Division of Pathology and Laboratory Medicine [address] [facility] Glucose Level (10/28/2020 9:20 AM CDT) Pathologist Sig nature Glucose Level 88 70 - 99 mg/dL [facility] Comment: Effective 11/09/15, the gluco se reference intervals have been updated based on [place] Diabetes [employer] guidelines (Standards of Medical Care in Diabetes 2016. Diabetes Care 2016; 39: S13-S22). Fasting blood glucose: Normal: 70-99 mg/dL Impaired fasting glucose (in creased risk for diabetes or pre-diabetes): 100- 125 mg/dL Diabetes mellitus: >/=126 mg/dL Random blood glucose: Normal: 70-199 mg/dL Note: Random glucose >100 mg/dL is assoc iated with increased risk for diabetes Testing Performed at [facility] Lab Direct Service Provider [facility], [address] [place] [address], [address], [place] [address] Specimen Blood Performing Organization Address [facility] Phon e Number [facility] [address] [place] [address]. [place] [address] [address] Calcium Level (10/28/2020 9:20 AM CDT) Pathologist Sig formerly [facility] Calcium Lvl 9.7Comment: Testing 8.4 - 10.2 mg/dL [facility] Performed at [facility] Lab Direct Service Provider [facility], [address] [facility], [address], [place] [address] Specimen Blood Performing Organization Address [facility] Phon e Number [facility] [address] [facility] [facility] [place] [place] [address] [address] Albumin Level (10/28/2020 9:20 AM CDT) Pathologist Sig nature Albumin Lvl 4.6Comment: Testing 3.5 - 5.2 gm/dL [facility] Performed at [facility] Lab Direct Service Provider [facility], [address], [address], [place] [address] Specimen Blood Performing Organization Address City/State/ZIP Code Phon e Number [facility] [address] [facility] [place] [address] [address] (ABNORMAL) Electrolyte Panel (10/28/2020 9:20 AM CDT) Pathologist Sig kezia Sodium Lvl 139Comment: Testing 136 - 145 mEq/L [facility] Performed at [facility] Lab Direct Service Provider [facility], [address], [address], [place] [address] Potassium Lvl 4.3Comment: Testing 3.5 - 5.1 mEq/L [facility] Performed at [facility] Lab Direct Service Provider [facility], [address], [address], [place] [address] Chloride 101Comment: Testing 98 - 107 mEq/L [facility] Performed at [facility] Lab Direct Service Provider [facility], [address], [address], [place] [address] CO2 30 (H)Comment: 22 - 29 mEq/L [facility] Testing Performed at [facility] Lab Direct Service Provider [facility], [address], [address], [place] [address] Anion Gap 8Comment: Testing 4 - 14 mEq/L [facility] Performed at [facility] Lab Direct Service Provider [facility], [address], [address], [place] [address] Specimen Blood Performing Organization Address [facility]/ZIP Code Phon e Number [facility] [address] [place] [address] [address] Confirm ABORh (10/28/2020 9:17 AM CDT) Pathologist Sig nature ABORh Confirm. O POS [facility] CANCER [facility] ER Specimen Blood Performing Organization Address City/State/ZIP Code Phon e Number [facility] Unless otherwise noted, [address] all lab tests performed by: Division of Pathology and Laboratory Medicine Vignesh Puentes Urinalysis (10/28/2020 9:11 AM CDT) UA Color Yellow Straw-Yellow [facility] UA Appear Clear Clear [facility]A Glucose NEG NEG mg/dL [facility] U[facility] Bili NEG NEG [facility] Ketones NEG NEG mg/dL [facility] Spec Grav 1.025 1.003 - 1.035 [facility] UA Blood NEG NEG [facility] pH 7.0 5.0 - 9.0 [facility]A Protein NEG NEG mg/dL [facility] Urobilinogen NEG NEG [facility] Nitrite NEG NEG [facility] Leuk Est NEG NEG [facility] Comment See CommentComment: No [facility] microscopic exam CANCER CENTER performed, physiochemical findings are negative Specimen Urine Performing Organization Address City/State/ZIP Code Phon e Number [facility] Unless otherwise noted, [place] [address] [place] all lab tests performed by: Division of Pathology and Laboratory Medicine [facility] MRI Multi Reconstruction On Independent Workstation (10/19/2020 2:05 PM CDT) Specimen Impressions [id number] - 11/21/2020 3:43 PM CDT Three-D reformatted post processing MR images of the prostate for a fusion biopsy Narrative [id number] - 11/21/2020 3:43 PM CDT FULL RESULT: Examination: MRI MULTI RECONSTRUCTION ON INDEPENDENT WORKSTATION on 10/19/2020 2:05 PM Clinical History: Adenocarcinoma of pros lynn Indication: Abnormal findings on diagnos tic imaging of other specified body structures, prostate. Prebiopsy segmentation. Biopsy scheduled on 10/31/2020 Comparison: None Technique: 3-D reconstructed postprocess ing MR images of the prostate were generated and reviewed on an independent workstation. Findings: The prostate has been segmented and 3-D reformatted images have been created for the purpose of MRI/ultrasound guided targeted biopsy utilizing an MRI pelvis dated of 02/18/2020. No specific region of interest has been segmented. The images have been sent to a biopsy jimenez ite. Procedure Note Caitie Denton MD - 11/21/2020 FULL RESULT: Examination: MRI MULTI RECONSTRUCTION ON INDEPENDENT WORKSTATION on 10/19/2020 2:05 PM Clinical History: Adenocarcinoma of pros lynn Indication: Abnormal findings on diagnos tic imaging of other specified body structures, prostate. Prebiopsy segmentation. Biopsy scheduled on 10/31/2020 Comparison: None Technique: 3-D reconstructed postprocess ing MR images of the prostate were generated and reviewed on an independent workstation. Findings: The prostate has been segmented and 3-D reformatted images have been created for the purpose of MRI/ultrasound guided targeted biopsy utilizing an MRI pelvis dated of 02/18/2020. No specific region of interest has been segmented. The images have been sent to a biopsy jimenez ite. IMPRESSION: Three-D reformatted post processing MR i mages of the prostate for a fusion biopsy Performing Organization Address [facility] Phon e Number [id number] PSA (10/07/2020 12:44 PM CDT) PSA 1.2 0.0 - 4.0 ng/mL [facility] Comment: Results greater than 4519 ng /mL may not be reliable due to matrix effect with extended dilution as it exceeds the amf mechanic's recommended limit. Caution should be exercised when interpreting such erich ues and done in conjunction with clinical context. Testing Performed at [facility] Lab Direct Service Provider [facility], [address] [place] [address], [address], [place] [address] PSA Indication Diagnostic [facility] Specimen Blood Performing Organization Address [facility] Phon e Number [facility] [address] [place] [address]. [place] [address] [address] after 05/22/2020 Insurance Payer Benefit Plan / Subscriber ID Effective Dates Phone Addre ss Type Group BLUE CROSS [employer]BS PPO POS [id number] 2017-[place] [phone] [address] PPO BLUE SHIELD OUT OF STATE t [phone] [id number] [place] [address] Advance Directives Code Status Date Activated Date Inactivated Comments Full Code 10/31/2020 6:43 PM 11/01/2020 6:18 PM Care Teams Catalyst Operator Chief Relationship Specialty Start Date End Date Brandon Huerta, PCP - General Urology 01/25/20 [address] [place] [address] Alvaro Camara MD PCP - External Follow Up A Gastroenterology 02/05/20 [address] [place] [address]
[2021-05-22] MEDS ORDERED: MORPHINE 4 MG/ML SYR ONE ×2 (07:30→08:53)
[2021-05-22] MEDS ORDERED: ONDANSETRON 4 MG/2 ML VIAL ONE (07:31)
[2021-05-22] MEDS ORDERED: NA CHLORIDE 0.9% 1,000 ML ONE (07:31)
[2021-05-22 07:39] LABS: Urine Blood Negative (Negative); Urine Glucose Negative (Negative); Urine Protein Negative (Negative); Urine Specific Gravity >=1.030 (1.005-1.030); Urine pH 5.5 (5.0-7.0)
[2021-05-22 07:48] LABS: Hematocrit 49.3 % (39.6-49.0); Lymphocytes % 29.8 % (15.3-44.8); RBC Red Blood Cell Count 5.37 M/uL (4.33-5.43)
[2021-05-22 08:07] LABS: Albumin 3.9 g/dL (3.4-5.0); Bilirubin Direct 0.2 mg/dL (0-0.2); Bilirubin Total 0.5 mg/dL (0.2-1.0); Potassium 3.9 mmol/L (3.5-5.1); Protein, Total 7.4 g/dL (6.4-8.2)
--- NOTE | 2021-05-22 09:02 | RAD REPORT ---
EXAM DESCRIPTION: CTAbdomen Pelvis W Contrast - 05/22/2021 8:39 am CLINICAL HISTORY: Abdominal pain. RLQ PAIN COMPARISON: Abdomen Pelvis W Contrast dated 04/18/2016 TECHNIQUE: Biphasic CT imaging of the abdomen and pelvis was performed with 100 ml non-ionic IV cont rast. All CT scans are performed using dose optimization technique as appropriate and may include automated exposure control or mA/KV adjustment according to patient size. FINDINGS: The lung bases are clear.Small hiatal hernia with postsurgical changes about the stomach. Cholecystectomy clips. The liver, spleen, pancreas, adrenal glands and kidneys are within normal limits. No bowel obstruction, free air, free fluid or abscess. The appendix is normal. No evidence of signi ficant lymphadenopathy. No suspicious bony findings. IMPRESSION: No acute intra-abdominal or pelvic finding.
--- NOTE | 2021-05-22 10:39 | ER ---
Nurse's Notes [facility] Name: Terrell Dos Santos Age: 36 yrs Sex: Male : 1985 Arrival Date: 05/22/2021 Time: 07:03 Bed 7 Private MD: Diagnosis: Abdominal pain, unspecified Presentation: 05/22 07:08 Chief complaint: Patient states: Constant RLQ abdminal pain and nausea since yesterday jl7 afternoon. Coronavirus screen: At this time, the client does not indicate any symptoms associated with coronavirus-19. Ebola Screen: No symptoms or risks identified at this time. Initial Sepsis Screen: Does the patient meet any 2 criteria? No. Patient's initial sepsis screen is negative. Does the patient have a suspected source of infection? No. Patient's initial sepsis screen is negative. Risk Assessment: Do you want to hurt yourself or someone else? Patient reports no desire to harm self or others. Onset of symptoms was May 21, 2021. 07:08 Method Of Arrival: Ambulatory [facility] 07:08 Acuity: GAUTAM 3 jl7 Triage Assessment: 07:09 General: Appears in no apparent distress. uncomfortable, ill, Behavior is calm, jl7 cooperative, appropriate for age. Pain: Complains of pain in right lower quadrant Pain does not radiate. Pain currently is 9 out of 10 on a pain scale. Quality of pain is described as sharp, stabbing, Pain began 1 day ago. Is continuous. GI: Reports nausea. Historical: - Allergies: 07:09 Celebrex; jl7 - Home Meds: 07:09 sertraline oral [Active]; gabapentin oral [Active]; Ambien Oral [Active]; jl7 - PMHx: 07:09 ptsd; jl7 - PSHx: 07:09 Cholecystectomy; gastric sleeve; Left knee; jl7 - Immunization history:: Client reports receiving the 2nd dose of the Covid vaccine, Pfizer. - Social history:: Smoking status: Patient denies any tobacco usage or history of. Screenin:48 Abuse screen: Denies threats or abuse. Denies injuries from another. Nutritional ph screening: No deficits noted. Tuberculosis screening: No symptoms or risk factors identified. Fall Risk None identified. Assessment: 07:47 General: Appears in no apparent distress. uncomfortable, well groomed, Behavior is ph calm, cooperative, appropriate for age, Reports chills for 12-24 hours. Pain: Complains of pain in right lower quadrant. Neuro: Level of Consciousness is awake, alert, obeys commands, Oriented to person, place, time, situation. Cardiovascular: Capillary refill < 3 seconds in bilateral fingers Patient's skin is warm and dry. Respiratory: Airway is patent Respiratory effort is even, unlabored. GI: Abdomen is non-distended, Abd is soft X 4 quads Abdomen is tender to palpation in right lower quadrant. : Denies burning with urination, inability to void. Derm: Skin is intact, is healthy with good turgor, Skin is pink, warm \T\ dry. Musculoskeletal: Circulation, motion, and sensation intact. Range of motion: intact in all extremities. 08:16 Reassessment: Patient reports no change yet in pain level. jg9 09:30 Reassessment: Patient appears in no apparent distress at this time. Patient and/or ph family updated on plan of care and expected duration. Pain level reassessed. Patient is alert, oriented x 3, equal unlabored respirations, skin warm/dry/pink. 10:30 Reassessment: Patient appears in no apparent distress at this time. No changes from previously documented assessment. Patient and/or family updated on plan of care and expected duration. Pain level reassessed. Patient is alert, oriented x 3, equal unlabored respirations, skin warm/dry/pink. Awaiting medication from pharmacy. 11:15 Reassessment: Patient appears in no apparent distress at this time. Patient and/or ph family updated on plan of care and expected duration. Pain level reassessed. Patient is alert, oriented x 3, equal unlabored respirations, skin warm/dry/pink. IM medication given, d/c pending 15 min shot time. Vital Signs: 07:08 BP 110 / 73; Pulse 84; Resp 17; Temp 98.4; Pulse Ox 99% ; Weight 106.59 kg; Height 6 jl7 ft. 3 in. (190.50 cm); Pain 12/23; 07:49 BP 123 / 82; Pulse 76; Resp 18; Pulse Ox 98% on R/A; ph 08:54 BP 107 / 72; Pulse 75; Resp 16 S; Pulse Ox 99% ; jg9 10:30 BP 111 / 76; Pulse 74; Resp 18; Temp 97.8; Pulse Ox 99% on R/A; ph 07:08 Body Mass Index 29.37 (106.59 kg, 190.50 cm) jl7 ED Course: 07:03 Patient arrived in ED. ja2 07:09 Triage completed. jl7 07:09 Arm band placed on right wrist. jl7 07:15 Rizwana Ortiz, RN is Primary Nurse. ph 07:19 Theron Menchaca NP is PHCP. pm1 07:19 Sanju Argueta MD is Attending Physician. pm1 07:20 Initial lab(s) drawn, by me, sent to lab. Inserted saline lock: 22 gauge in right ph antecubital area, using aseptic technique. Blood collected. 07:49 Patient has correct armband on for positive identification. Bed in low position. Call ph light in reach. Side rails up X 1. Pulse ox on. NIBP on. Door closed. Noise minimized. Warm blanket given. 08:17 No apparent distress. Resting quietly. jg9 08:40 CT Abd/Pelvis - IV Contrast Only In Process Unspecified. EDMS 11:18 No provider procedures requiring assistance completed. IV discontinued, intact, ph bleeding controlled, No redness/swelling at site. Pressure dressing applied. Administered Medications: 07:35 Drug: NS 0.9% 1000 ml Route: IV; Rate: 1000 ml; Site: right antecubital; ph 09:01 Follow up: Response: No adverse reaction; IV Status: Completed infusion; IV Intake: ph 1000ml 07:35 Drug: Zofran (Ondansetron) 4 mg Route: IVP; Site: right antecubital; ph 08:19 Follow up: Response: No adverse reaction ph 07:38 Drug: morphine 4 mg Route: IVP; Site: right antecubital; ph 08:19 Follow up: Response: No adverse reaction ph 08:55 Drug: morphine 4 mg Route: IVP; Site: right antecubital; ph 11:15 Follow up: Response: No adverse reaction ph 10:59 Not Given (Other Intervention Used): NS 0.9% 1000 ml IV at 1000 ml once ph 11:15 Not Given (Other Intervention Used): Orphenadrine 60 mg IM once ph 11:15 Drug: Ketorolac 60 mg Route: IM; Site: right deltoid; ph 11:42 Follow up: Response: No adverse reaction ph Intake: 09:01 IV: 1000ml; Total: 1000ml. ph Outcome: 10:39 Discharge ordered by . pm1 11:42 Discharged to home ambulatory. ph 11:42 Condition: good 11:42 Discharge instructions given to patient, Instructed on discharge instructions, follow up and referral plans. medication usage, Demonstrated understanding of instructions, follow-up care, medications, Prescriptions given X 2. 11:43 Patient left the ED. ph Signatures: Dispatcher [employer]CO Rizwana Ortiz RN RN ph Theron Menchaca, [employer] REPRESENTATIVE pm1 Lielani Interiano RN RN jl7 Lola Mckeon Jennifer RN RN jg9 Corrections: (The following items were deleted from the chart) 07:12 07:09 PMHx: None; mirta jl7
--- NOTE | 2021-05-22 10:40 | EDPHYS ---
Physician Documentation [facility] Name: Terrell Dos Santos Age: 36 yrs Sex: Male : 1985 Arrival Date: 05/22/2021 Time: 07:03 Bed 7 Private MD: ED Physician Sanju Argueta HPI: 05/22 07:39 This 36 yrs old Male presents to ER via Ambulatory with complaints of Abdominal Pain, pm1 Nausea, CHILLS. 07:39 The patient presents with abdominal pain right lower quadrant. Onset: The pm1 symptoms/episode began/occurred this morning. The symptoms do not radiate. Associated signs and symptoms: Pertinent positives: nausea, chills, Pertinent negatives: chest pain, constipation, diarrhea, shortness of breath, testicular pain. The symptoms are described as sharp. Modifying factors: The symptoms are alleviated by nothing, the symptoms are aggravated by movement. Severity of pain: in the emergency department the pain is actually worse. The patient has not experienced similar symptoms in the past. The patient has not recently seen a physician. Historical: - Allergies: 07:09 Celebrex; jl7 - Home Meds: 07:09 sertraline oral [Active]; gabapentin oral [Active]; Ambien Oral [Active]; jl7 - PMHx: 07:09 ptsd; jl7 - PSHx: 07:09 Cholecystectomy; gastric sleeve; Left knee; jl7 - Immunization history:: Client reports receiving the 2nd dose of the Covid vaccine, Pfizer. - Social history:: Smoking status: Patient denies any tobacco usage or history of. ROS: 07:39 Cardiovascular: Negative for chest pain, palpitations, and edema, Respiratory: Negative pm1 for shortness of breath, cough, wheezing, and pleuritic chest pain. 07:39 Back: Negative for injury and pain, : Negative for injury, bleeding, discharge, and swelling, MS/Extremity: Negative for injury and deformity, Skin: Negative for injury, rash, and discoloration, Neuro: Negative for headache, weakness, numbness, tingling, and seizure. 07:39 Constitutional: Positive for chills, Negative for fever, poor PO intake. 07:39 Abdomen/GI: Positive for abdominal pain, nausea, of the right lower quadrant, Negative for vomiting, diarrhea, constipation. 07:39 All other systems are negative. Exam: 07:39 Constitutional: This is a well developed, well nourished patient who is awake, alert, pm1 and in no acute distress. Head/Face: Normocephalic, atraumatic. 07:39 Back: No spinal tenderness. No costovertebral tenderness. Full range of motion. Skin: Warm, dry with normal turgor. Normal color with no rashes, no lesions, and no evidence of cellulitis. MS/ Extremity: Pulses equal, no cyanosis. Neurovascular intact. Full, normal range of motion. 07:39 Eyes: Exam is negative for acute changes, Periorbital structures: appear normal, Extraocular movements: no acute changes, Conjunctiva: no acute changes, no injection, Sclera: no acute changes, icterus, is not appreciated. 07:39 ENT: Exam is negative for acute changes, Mouth: no acute changes, Lips: normal, moist, Oral mucosa: normal, pink and intact, moist. 07:39 Cardiovascular: Exam negative for acute changes, Rate: normal, Rhythm: regular, Pulses: no pulse deficits are appreciated, Heart sounds: normal, normal S1and S2. 07:39 Respiratory: Exam negative for acute changes, respiratory distress, shortness of breath, Breath sounds: are clear throughout. 07:39 Abdomen/GI: Inspection: abdomen appears normal, Palpation: abdomen is soft and non-tender, in all quadrants. 07:39 Neuro: Exam negative for acute changes. Vital Signs: 07:08 BP 110 / 73; Pulse 84; Resp 17; Temp 98.4; Pulse Ox 99% ; Weight 106.59 kg; Height 6 jl7 ft. 3 in. (190.50 cm); Pain 9/10; 07:49 BP 123 / 82; Pulse 76; Resp 18; Pulse Ox 98% on R/A; ph 08:54 BP 107 / 72; Pulse 75; Resp 16 S; Pulse Ox 99% ; jg9 10:30 BP 111 / 76; Pulse 74; Resp 18; Temp 97.8; Pulse Ox 99% on R/A; ph 07:08 Body Mass Index 29.37 (106.59 kg, 190.50 cm) jl7 MDM: 07:19 Patient medically screened. pm1 10:38 Data reviewed: vital signs. Data interpreted: Pulse oximetry: on room air is 99 %. pm1 Interpretation: normal. Counseling: I had a detailed discussion with the patient and/or guardian regarding: the historical points, exam findings, and any diagnostic results supporting the discharge/admit diagnosis, lab results, radiology results, the need for outpatient follow up, to return to the emergency department if symptoms worsen or persist or if there are any questions or concerns that arise at home. 11:10 ED course: Skelaxin not available. Will give Toradol instead. pm1 11:35 ED course: [place] reviewed. pm1 05/22 07:26 Order name: Basic Metabolic Panel; Complete Time: 08:08 pm1 05/22 07:26 Order name: CBC with Diff; Complete Time: 07:54 pm1 05/22 07:26 Order name: Hepatic Function; Complete Time: 08:08 pm1 05/22 07:26 Order name: Lipase; Complete Time: 08:08 pm1 05/22 07:26 Order name: COVID-19 SARS RT PCR (Document "Date of Onset" if Symptomatic); Complete pm1 Time: 08:43 05/22 07:39 Order name: Urine Dipstick-Ancillary; Complete Time: 07:54 EDMS 02 07:26 Order name: CT Abd/Pelvis - IV Contrast Only; Complete Time: 09:10 pm1 05/22 07:26 Order name: IV Saline Lock; Complete Time: 07:46 pm1 05/22 07:26 Order name: Labs collected and sent; Complete Time: 07:46 pm1 05/22 07:26 Order name: Urine Dipstick-Ancillary (obtain specimen); Complete Time: 07:45 pm1 Administered Medications: 07:35 Drug: NS 0.9% 1000 ml Route: IV; Rate: 1000 ml; Site: right antecubital; ph 09:01 Follow up: Response: No adverse reaction; IV Status: Completed infusion; IV Intake: ph 1000ml 07:35 Drug: Zofran (Ondansetron) 4 mg Route: IVP; Site: right antecubital; ph 08:19 Follow up: Response: No adverse reaction ph 07:38 Drug: morphine 4 mg Route: IVP; Site: right antecubital; ph 08:19 Follow up: Response: No adverse reaction ph 08:55 Drug: morphine 4 mg Route: IVP; Site: right antecubital; ph 11:15 Follow up: Response: No adverse reaction ph 10:59 Not Given (Other Intervention Used): NS 0.9% 1000 ml IV at 1000 ml once ph 11:15 Not Given (Other Intervention Used): Orphenadrine 60 mg IM once ph 11:15 Drug: Ketorolac 60 mg Route: IM; Site: right deltoid; ph 11:42 Follow up: Response: No adverse reaction ph Disposition: 12:51 Co-signature as Attending Physician, Sanju Argueta MD I agree with the assessment and kdr plan of care. Disposition Summary: 05/22/21 10:39 Discharge Ordered Location: Home pm1 Problem: new pm1 Symptoms: have improved pm1 Condition: Stable pm1 Diagnosis - Abdominal pain, unspecified pm1 Followup: pm1 - With: Emergency Department - When: As needed - Reason: Worsening of condition Followup: pm1 - With: Private Physician - When: 2 - 3 days - Reason: Recheck today's complaints, Continuance of care, Re-evaluation by your physician Discharge Instructions: - Discharge Summary Sheet pm1 - Abdominal Pain, Adult pm1 Forms: - Medication Reconciliation Form pm1 - Work release form ph - Thank You Letter pm1 - Antibiotic Education pm1 - Prescription Opioid Use pm1 Prescriptions: - Tylenol-Codeine #3 300 mg-30 mg Oral - take 2 tablet by ORAL route every 6 hours As needed; 20 tablet; Refills: 0, pm1 Product Selection Permitted - Cyclobenzaprine 10 mg Oral Tablet - take 1 tablet by ORAL route every 8 hours As needed; 30 tablet; Refills: 0, pm1 Product Selection Permitted Signatures: Dispatcher [employer] EDSanju Calderon MD MD kdr Hall, Patricia RN RN Theron Silva, MIR [employer] pm1 Leilani Interiano, RN RN jl7 Corrections: (The following items were deleted from the chart) 07:12 07:09 PMHx: None; jl7 jl7
[2021-05-22] MEDS ORDERED: KETOROLAC 30 MG/ML INJ ONE (11:11)
[2021-05-22 12:05] VITALS: O2SAT 99
[2021-05-22 12:06] VITALS: BP 111/76; TEMP 97.8
== END 2021-05-22 11:43 | disposition home or self-care (01) ==
LOC: ER 07:00
DX: R10.31 Right lower quadrant pain (principal); F43.10 Post-traumatic stress disorder, unspecified; Z20.822 Contact with and (suspected) exposure to COVID-19; Z88.8 Allergy status to other drugs, medicaments and biological substances
CPT/HCPCS: 96361; 85025; 80048; 36415; 80076; 81003; 83690; 74177; 96375; 96372; 96374; 99284; U0003; Q9967; J7030; J2405

== ENCOUNTER 2021-05-24 14:42 | Emergency (ER) | payer BC, OTHER ==
--- OUTSIDE RECORDS SUMMARY | 2021-05-24 14:47 | XMS REPORT | Clinical Summary ---
:1985 Author Organization [facility] MD [facility] Address [address] [place] [address] Care Team Providers Name Role Phone Layton [...] Covid Jordana, SARS-CoV-2 MD Arnie vaccination after 05/24/2020 Surgical History Surgery Date Site/Laterality Comments CHOLECYSTECTOMY 08/13/2018 - laproscopic 09/12/2018 ANTERIOR CRUCIATE LIGAMENT 04/15/2014 - Left REPAIR 04/14/2015 MEDIAL COLLATERAL LIGAMENT 04/15/2016 - Left AND LATERAL COLLATERAL 04/14/2017 LIGAMENT REPAIR, KNEE EGD 01/14/2020 - 02/13/2020 COLONOSCOPY 04/15/2019 - 05/15/2019 STOMACH SURGERY OR BIOPSY OF 10/31/2020 Anus/N/A Procedure: NEEDL E BIOPSY PROSTATE,NEEDLE/PUNCH OF PROSTAT E(IN OR); Surgeon: Brandon Huerta MD; Loca tion: [facility]; Servic e: UROLOGY OR CHG ECHO,TRANSRECTAL 10/31/2020 Anus/N/A Procedur e: ULTRASOUND, TRANSRECTAL; Jimenez rgeon: Brandon mancia MD; Location: [facility]; Service: UROLOGY OR CHG 3D RENDERING 10/31/2020 Anus/N/A Procedure: 3 [...] are i n the results section. after 05/24/2020 Results (ABNORMAL) POC Glucose Screen (10/31/2020 8:19 [...] Sample Type Capillary POC [facility], [address], [place] [address]; Catering Chef: Anahi Velazco MD Specimen Blood Performing Organization Address City/State/ZIP Code Phon e Number POC TELCOR Pathology Biopsy Interpretation (10/31/2020 12:34 PM CDT) Pathologist Sig nature Submitted Clinical Prostate nodule [facility] History [N40.2] Diagnosis A: Prostate gland, 1. left lateral base: [facility] Electronically signed Fibromuscular tissue, and, [...] no tumor present. PXT/FAS1 Gross Description A: [facility] Prostate gland, 1. left late [...] L1. JX Disclaimer "Some tests reported [facility] here may have been developed and performance characteristics determined by [facility]. These tests have [...] Address City/State/ZIP Code Phon e Number [facility] [place] [address] [address] COVID-19 (SARS-CoV-2) PCR-Asymptomatic (10/28/2020 9:39 AM CDT) COVID19 (SARS Not Detected Not Detected [facility] CoV-2) Result Comment: CAN[facility]ER CENTER This test [...] were verified by the Microbiology Laboratory at [facility], CLIA Accreditation #: [id number] and CAP Accreditation #: [id number]. Results must be interpreted within the context [...] nicki ting if clinically indicated. COVID19 SARS CLOTHING PATTERN PREPARER Swab [facility] COVID19 SARS Pre-OR Procedure [facility] Indication CANCER CENTER Specimen Nasopharyngeal Swab Performing Organization Address [facility] Phon e Number [facility] CANCER Unless otherwise noted, [address] all lab tests performed by: Division of Pathology and Laboratory Medicine [address] [place] [address] .Serum Creatinine (10/28/2020 9:20 AM CDT) Pathologist [facility] Creatinine 0.87Comment: Testing 0.67 - 1.17 mg/dL [facility] Performed at [facility], [facility] [facility], [address], [place] [id number] Specimen Blood Performing Organization Address [facility] Phon e Number [facility] [address] [facility] [place] [address] [address] (ABNORMAL) .CBC (10/28/2020 9:20 AM CDT) Pathologist [facility] WBC 5.1 4.0 - 11.0 K/uL [facility] RBC 5.17 4.50 - 6.00 [facility] M/uL Hgb 16.2Comment: As part 14.0 - 18.0 [facility] of CBC or as an gm/dL individual orderable testing performed at [facility], [address] [place] [address], [address], [place] [address] Hct 47.7Comment: As part 40.0 - 54.0 % [facility] of CBC or as an individual orderable testing performed at [facility], [address] [place] [address], [address], [place] [address] MCV 92 82 - 98 fL [facility] MCH 31.3 (H) 27.0 - 31.0 pg [facility] MCHC 34.0 31.0 - 36.0 [facility] gm/dL RDW-SD 41.0 35.1 - 46.3 fL [facility] RDW-CV 12.0 12.0 - 15.5 % [facility] Platelet count 217Comment: As part 140 - 440 K/uL [facility] of CBC or as an individual orderable testing performed at [facility], [address] [place] [address], [address], [place] [address] MPV 9.0 4.0 - 10.4 fL [facility] INRBC 0.0 <=0.0 % [facility] Comment: The INRBC (instrument NRBC) value reflects the enumera tion of nucleated red blood cells contained in a 200uL samp le of whole blood analyzed by the instrument. This value may differ from the NRBC value reported in a manual differ ential, which is based on a 100 cell differential. As part of CBC testing performed at [place] [id number] [facility], [address], [place] [address] Specimen Blood Performing Organization Address City/State/ZIP Code Phon e Number [facility] [address] [place] [address]. [place] [address] [address] Clot Expiration Date (10/28/2020 9:20 AM CDT) Pathologist Sig kezia T & S Expiration 10/31/2020 [facility] CAN[facility]ER CENTER Specimen Blood Performing Organization Address City/State/ZIP Code Phon e Number [facility] CANCER Unless otherwise noted, [place] [id number] CENTER all lab tests performed by: Division of Pathology and Laboratory Medicine [address] [place] [address] Dolly Glomerular Filtration Rate (10/28/2020 9:20 AM CDT) Pathologist Javad mast eGFR-AA 128 >=60 mL/min/1.73 [facility] Comment: sq. m Normal eGFR >= 60 [...] 5 Kidney failure <15 Testing Performed at [facility], [address] [place] [address], [address], [place] [address] eGFR-FIORELLA 111 >=60 mL/min/1.73 [facility] Comment: sq. m Normal eGFR >= 60 [...] 5 Kidney failure <15 Testing Performed at [facility], [facility], [address], [place] [address] Specimen Blood Performing Organization Address City/State/ZIP Code Phon e Number [address] [place] [address] [address] Fractionated Bilirubin (10/28/2020 9:20 AM CDT) Bili Total 0.5 <=1.2 mg/dL [facility] Comment: Indocyanine Green (ICG) may cause falsely elevated bilirubin results. Total and direct bilirubin must not be measured from samples containing indocyanine green. False elevation of total chiquita irubin can be seen in patients with IgG concentrations above 28 g/L. Testing Performed at [facility] Lab [facility], [address], [address], [place] [address] Bili Direct <0.2 <=0.3 mg/dL [facility] Comment: Indocyanine Green (ICG) may cause falsely elevated bilirubin results. Total and direct bilirubin must not be measured from samples containing indocyanine green. Testing Performed at [facility] Lab [facility], [address] [facility], [address], [place] [address] Bili Indirect See Note 0.0 - 0.9 [facility] Comment: mg/dL Unable to calculate Indirect Bilirubin result due to some parameters are outside reportable range Testing Performed at [facility] Lab [facility], [address], [address], [place] [address] Specimen Blood Performing Organization Address [facility] Phon e Number [facility] [address] [facility] [place] [address] [address] TMP Interpretation Antibody Screen Negative (10/28/2020 9:20 AM CDT) TMP Auto Neg ABSC At the present time, patien t plasma shows no evidence of RBC alloantibodies. [facility] Interp Comment: CANCER CENTER TOÑA CISNEROS, Dictated by: TOÑA CISNEROS, Dictated Date/Time: 10.29.19 15:58 PM CDT Transcribed Date/Time: 10.28.2020 15:58 PM CDT Electronically Signed By: TOÑA CISNEROS, on 10.13 15:58 PM Specimen Blood Performing Organization Address City/[facility] Phon e Number [facility] CANCER Unless otherwise noted, [place] [address] CENTER all lab tests performed by: Division of Pathology and Laboratory Medicine [address] [place] [address] Dolly ABOR (10/28/2020 9:20 AM CDT) Pathologist Javad mast ABORh. O POS [facility] CAN[facility]ER CENTER Specimen Blood Performing Organization Address City/[facility] Phon e Number [facility] CANCER Unless otherwise noted, [place] [phone] CENTER all lab tests performed by: Division of Pathology and Laboratory Medicine [address] (ABNORMAL) Differential (10/28/2020 9:20 AM CDT) Neutrophil % 54.0Comment: As part 42.0 - 66.0 % [facility] of Differential performed at [facility], [address] [place] [address], [address], [place] [address] Lymphocyte % 34.4 24.0 - 44.0 % [facility] Monocyte % 8.9 (H) 2.0 - 7.0 % [facility] Eosinophil % 1.9 1.0 - 4.0 % [facility] Basophil % 0.4 0.0 - 1.0 % [facility] IGRE % 0.4 0.0 - 0.4 % [facility] Comment: IGRE % count includes Metamyelocytes, Myelocytes, and Promyelocytes. As part of Differential perf ormed at [facility], [address] [facility], [address], [place] [address] Neutrophil Abs 2.77 1.70 - 7.30 [facility] [...] Organization Address City/State/ZIP Code [facility]on [facility] Number [facility] [address] [place] [address] [address] Antibody Screen (10/28/2020 9:20 AM CDT) Pathologist Sig nature ABSC. Negative ABSC [facility] CANCER CENTE R Specimen Blood Performing Organization Address City/State/ZIP Code Phon e Number [facility] CANCER Unless otherwise noted, [place] [phone] [place] all lab tests performed by: Division of Pathology and Laboratory Medicine [address] BUN (10/28/2020 9:20 AM CDT) Pathologist Sig nature BUN 12Comment: Testing 6 - 23 mg/dL [facility] Performed at [facility] Lab [facility], [address], [place] [address] Specimen Blood Performing Organization Address [facility]/ZIP Code Phon e Number [facility] [address] [place] [address] [address] ALT (10/28/2020 9:20 AM CDT) Pathologist [facility] ALT 30Comment: Testing Performed <=41 U/L [facility] at [facility] Lab [facility], [address], [address], [place] [address] Specimen Blood Performing Organization Address [facility]/ZIP [facility] Phon e Number [facility] [address] [place] [address] [address] Aspartate Aminotransferase (10/28/2020 9:20 AM CDT) Pathologist [facility] AST 21Comment: Testing Performed <=40 U/L [facility] at [facility] Lab [facility], [address], [address], [place] [address] Specimen Blood Performing Organization Address [facility] Phon e Number [facility] [address] [place] [address] [address] Total Protein (10/28/2020 9:20 AM CDT) Pathologist [facility] Total Protein 7.1Comment: Testing 6.4 - 8.3 g/dL [facility] Performed at [facility] Lab [facility], [address], [address], [place] [address] Specimen Blood Performing Organization Address [facility] Phon e Number [facility] [address] [place] [address] [address] Alkaline Phosphatase (10/28/2020 9:20 AM CDT) Pathologist Sig [facility] Alk Phos 55Comment: Testing 40 - 129 U/L [facility] Performed at [facility] Lab [facility], [address], [address], [place] [address] Specimen Blood Performing Organization Address City/[facility]/ZIP Code Phon e Number [facility] [address] [place] [address] [address] Hemoglobin A1c (10/28/2020 9:20 AM CDT) Pathologist Sig nature A1C 5.2 4.3 - 5.6 % [facility] Comment: [facility]ER CENTER HbA1c values >=6.5% are diagnostic of diabetes mellitu s. Diagnosis should be confirmed by repeat testing. Therapeutic Action suggested: >8.0% HbA1c; Goal of therapy: <7.0% HbA1c Specimen Blood Performing Organization Address [facility] Phon e Number [facility] CANCER Unless otherwise noted, [place] [address] CENTER all lab tests performed by: Division of Pathology and Laboratory Medicine [address] [facility] Glucose Level (10/28/2020 9:20 AM CDT) Pathologist Sig nature Glucose Level 88 70 - 99 mg/dL [facility] Comment: Effective 11/09/15, the gluco se reference intervals have been updated based on [place] [employer] guidelines (Standards of Medical Care in Diabetes 2016. Diabetes Care 2016; 39: S13-S22). Fasting blood glucose: Normal: 70-99 mg/dL Impaired fasting glucose (in creased risk for diabetes or pre-diabetes): 100- 125 mg/dL Diabetes mellitus: >/=126 mg/dL Random blood glucose: Normal: 70-199 mg/dL Note: Random glucose >100 mg/dL is assoc iated with increased risk for diabetes Testing Performed at [facility] Lab [facility], [address] [place] [address], [address], [place] [address] Specimen Blood Performing Organization Address [facility] Phon e Number [facility] [address] [place] [address]. [place] [address] [address] Calcium Level (10/28/2020 9:20 AM CDT) Pathologist Sig [facility] Calcium Lvl 9.7Comment: Testing 8.4 - 10.2 mg/dL [facility] Performed at [facility] Lab [facility], [address] [facility] [address], [address], [place] [address] Specimen Blood Performing Organization Address [facility] Phon e Number [facility] [address] [place] [address] [address] Albumin Level (10/28/2020 9:20 AM CDT) Pathologist Sig nature Albumin Lvl 4.6Comment: Testing 3.5 - 5.2 gm/dL [facility] Performed at [facility] Lab [facility], [address], [address], [place] [address] Specimen Blood Performing Organization Address City/State/ZIP Code Phon e Number [facility] [address] [facility] [place] [address] [address] (ABNORMAL) Electrolyte Panel (10/28/2020 9:20 AM CDT) Pathologist Sig kezia Sodium Lvl 139Comment: Testing 136 - 145 mEq/L [facility] Performed at [facility] Lab [facility], [address], [place] [address] Potassium Lvl 4.3Comment: Testing 3.5 - 5.1 mEq/L [facility] Performed at [facility] Lab [facility], [address], [place] [address] Chloride 101Comment: Testing 98 - 107 mEq/L [facility] Performed at [facility] Lab [facility], [address], [place] [address] CO2 30 (H)Comment: 22 - 29 mEq/L [facility] Testing Performed at [facility] Lab [facility], [address], [place] [address] Anion Gap 8Comment: Testing 4 - 14 mEq/L [facility] Performed at [facility] Lab [facility], [address], [address], [place] [address] Specimen Blood Performing Organization Address [facility]/ZIP Code Phon e Number [facility] [address] [place] [address] [address] Confirm ABORh (10/28/2020 9:17 AM CDT) Pathologist Sig nature ABORh Confirm. O POS [facility] CANCER [facility] Specimen Blood Performing Organization Address City/State/ZIP Code Phon e Number [facility] CANCER Unless otherwise noted, [address] all lab tests performed by: Division of Pathology and Laboratory Medicine Vignesh Puentes Urinalysis (10/28/2020 9:11 AM CDT) UA Color Yellow Straw-Yellow [facility] UA Appear Clear Clear [facility] UA Glucose NEG NEG mg/dL [facility] UA Bili NEG NEG [facility] UA Ketones NEG NEG mg/dL [facility] UA Spec Grav 1.025 1.003 - 1.035 [facility] UA Blood NEG NEG [facility] UA pH 7.0 5.0 - 9.0 [facility] UA Protein NEG NEG mg/dL [facility] UA Urobilinogen NEG NEG [facility] UA Nitrite NEG NEG [facility] UA Leuk Est NEG NEG [facility] UA Comment See CommentComment: No [facility] microscopic exam CANCER CENTER performed, physiochemical findings are negative Specimen Urine Performing Organization Address City/State/ZIP Code Phon e Number [facility] CANCER Unless otherwise noted, [place] [address] [place] all lab tests performed by: Division of Pathology and Laboratory Medicine [facility] MRI Multi Reconstruction On Independent Workstation (10/19/2020 2:05 PM CDT) Specimen Impressions [id number] - 11/21/2020 3:43 PM CDT Three-D reformatted post processing MR images of the prostate for a fusion biopsy Narrative [id number] - 11/21/2020 3:43 PM CDT FULL RESULT: [...] for a fusion biopsy Performing Organization Address [facility] Phon e Number [id number] PSA (10/07/2020 12:44 PM CDT) PSA 1.2 0.0 - 4.0 ng/mL [facility] Comment: Results greater than 4519 ng /mL may not be reliable due to matrix effect with extended dilution as it exceeds the wood boat builder supervisor's recommended limit. Caution should be exercised when interpreting such erich ues and done in conjunction with clinical context. Testing Performed at [facility] Lab [facility], [address] [place] [address], [address], [place] [address] PSA Indication Diagnostic [facility] Specimen Blood Performing Organization Address [facility] Phon e Number [facility] [address] [place] [address]. [place] [address] [address] after 05/24/2020 Insurance Payer Benefit Plan / Subscriber ID Effective Dates Phone Addre ss Type Group [employer]BS PPO POS [id number] 2017-Maxine [phone] [address] PPO BLUE SHIELD OUT OF STATE t [id number] [place] [address] Advance Directives Code Status Date Activated Date Inactivated Comments Full Code 10/31/2020 6:43 PM 11/01/2020 6:18 PM Care Teams Animal Therapist Relationship Specialty Start Date End Date Brandon Huerta, PCP - General Urology 01/25/20 [address] [place] [address] Alvaro Camara MD PCP - External Follow Up A Gastroenterology 02/05/20 [address] [place] [address]
--- OUTSIDE RECORDS SUMMARY | 2021-05-24 14:51 | XMS REPORT | Continuity of Care Document ---
:[address] [facility] t Address [address] [place] [address] Care Team Providers Name Role Phone [phone] Primary Care Physician Unavailable SYSTEM, NOT IN Attending Clinician Unavailable Philly Villegas Attending Clinician Unavailable VERONICA Attending Clinician Unavailable Ebrahim NURSE LEADER Attending Clinician EBRAHIM Attending Clinician Unavailable Nurse, [facility] Attending Clinician Unavailable Sree FRANCE Attending Clinician Attending Clinician Unavailable Singer NEWMAN Attending Clinician SREE Attending Clinician Unavailable Nurse, Pob Immunization Attending Clinician Unavailable Beto Allen DO Attending Clinician BETO ALLEN Attending Clinician Unavailable UNKNOWN Attending Clinician Unavailable CLARISSE SIBLEY Attending Clinician Unavailable SÁNCHEZ Attending Clinician Unavailable Dillon LEMON Attending Clinician Unavailable Britany SCHOFIELD Attending Clinician Unavailable DOC Attending Clinician Unavailable Tish MONAHAN Attending Clinician Unavailable LULY Attending Clinician Unavailable RICKY Attending Clinician Unavailable MARYBETH HERNANDES Attending Clinician Unavailable Deloris POPE Attending Clinician Unavailable Dimas CLEMENT Attending Clinician Unavailable Shahab, [place] Attending Clinician Unavailable EUSEBIO Attending Clinician Unavailable Philly Villegas Admitting Clinician Unavailable Admitting Clinician Unavailable CLARISSE SIBLEY Admitting Clinician Unavailable DOC Admitting Clinician Unavailable Deloris POPE Admitting Clinician Unavailable CLEMENT, R Admitting Clinician Unavailable Shahab, CO Admitting Clinician Unavailable Payers Payer Name Policy Type Policy Number Effective Date Expiration Date S [facility] [id number] 2016 00:00:00 OUT OF STATE [facility] [id number] 2020 00:00:00 [employer] PPO POS OUT [id number] 2017 00:00:00 OF STATE GENERIC Problems Condition Condition Condition Status Onset Resolution Last Treating Co mments Source Name Details Category Date Date Treatment Clinician Date Lumbago Lumbago Disease Active 2020- Univers 3-19 ity of 00:00: [place] 00 [facility] Right hand Right hand Disease Active 2019- U nivers pain pain 3-31 ity of 00:00: [place] 00 Medical Branch Obesity Obesity Disease Active 2018- Univers (BMI (BMI 1-05 ity of 30-39.9) 30-39.9) 00:00: [place] 00 Medical Branch Abscess of Abscess of Disease Active U nivers umbilicus umbilicus 1-04 ity of 00:00: [place] 00 Medical [facility] Cellulitis Cellulitis Disease Active U nivers and and 1-04 ity of abscess [place] trunk [place] 00 [place] LT KNEE Diagnosis Active 2016-042017-06-14 Me moria 2-11 14:01:00 l LT KNEE 08:00: [place] 00 Active 03/25/2017 [facility] S80.02XA - Diagnosis Active 2016-042017-01-21 Memoria "CONTUSION 0-02 10:55:00 l OF LEFT S80.02XA 00:01: Deidra nn KNEE, INIT - 00 "CONTUSION OF LEFT KNEE, INIT Active 01/14/2017 [facility] [place] Pain Pain Disease Active 2016- Univers -18 ity of 00:00: [place] 00 Medical Branch EYE/ Diagnosis Active 2012-04-28 Mem oria BLURRINESS -14 16:23:00 l EYE/ 00:00: [place] BLURRINESS 00 Active 04/28/2012 [facility] [place] [facility] Pain in Problem 2017-10-12 Lencho merritt left knee 11:09:46 l Pain in [place] left knee 10/12/2017 [facility] Stiffness Problem 2017-07-31 Me moria of left 14:52:42 l knee, not [place] elsewhere Stiffness classified of left knee, not elsewhere classified 07/31/2017 [facility] Muscle Problem 2017-07-31 Memor ia weakness 14:52:42 l (generaliz Muscle Herm lacie ed) weakness (generaliz ed) 07/31/2017 [facility] Other Problem 2017-07-31 Memor ia muscle 14:52:42 l spasm Other [place] muscle spasm 07/31/2017 [facility] Localized Problem 2017-07-31 Me moria edema 14:52:42 l [place] Localized edema 07/31/2017 [facility] Unspecifie Problem 2017-07-31 M emoria d 14:52:42 l abnormalit Tobi n ies of Unspecifie gait and d mobility abnormalit ies of gait and mobility 07/31/2017 [facility] Left knee Left knee Problem Active Uni vers pain pain ity of [place] [facility] Contusion Contusion Problem Active Uni vers of knee, of knee, ity of left left [place] [facility] Chondromal Chondromal Problem Active U nivers acia of acia of ity of trochlea trochlea [place] [facility] Ankylosis Ankylosis Problem Active Uni vers of left of left [place] knee joint knee joint [place] [facility] Grade 1 Grade 1 Problem Active Univers injury of injury of ity of medial medial [place] collateral collateral Ph ysici ligament ligament ans of left of left knee knee Lopez's Lopez's Problem Active Univers cyst of cyst of ity of knee knee [place] [facility] History of Past Illness Condition Condition Condition Status Onset Resolution Last Treating Co mments Source Name Details Category Date Date Treatment Clinician Date Complex Problem 2017-10-12 2017-10-12 Memoria tear of 3-31 11:09:46 11:09:46 l lateral Complex 04:46: Tobi alfaro meniscus, tear of 56 current lateral injury, meniscus, left knee, current subsequent injury, encounter left knee, subsequent encounter 07/13/2017 10/12/2017 [facility] Allergies, Adverse Reactions, Alerts Allergy Allergy Status Severity Reaction(s) Onset Inactive Treating Comm ents Source Name Type Date Date Clinician HYDROMOR DRUG Active Hallucinates 2019-0 Un wanda PHONE INGREDI 2-03 ity of 00:00: [place] [id number] Medical Branch Hydromor Drug Active Hallucinatio 2019-0 Un wanda phone Allergy ns 2-03 ity of 00:00: [place] 00 Medical Branch celecoxi DA Active [place] 2018-04 [facility] [place] [facility] celecoxi DA Active [place] HIVES 2018-04 [facility] [place] [facility] Celecoxi Propensi Active Rash 2016-04 Univer s b ty to 2-30 ity of adverse 00:00: [place] reaction 00 Medical s Branch CELECOXI DRUG Active Low Rash 2016-04 Univers B INGREDI 2-30 ity of 00:00: [place] 00 Medical Branch Celecoxi Drug Active Itching 2016-04 Other Univers b Allergy 2-30 reaction( ity of 00:00: s): [place] 00 Eruption Medical of skin Branch Social History Social Habit Start Date Stop Date Quantity Comments Source Exposure to Not sure [facility] SARS-CoV-2 [place] [facility] (event) Branch History SDOH University o f Alcohol Frequency [place] [facility] History SDOH University o f Alcohol Std [place] [facility] Drinks Branch History SDOH University o f Alcohol Binge [place] [facility] Alcohol intake 2021-04-18 2021-04-18 Current drinker Unive rsity of 00:00:00 00:00:00 of alcohol [place] [facility] (finding) Branch Alcohol Comment 2020-12-04 2020-12-04 occasional Universit y of 00:00:00 00:00:00 [facility] Tobacco Comment 2018-07-24 2018-07-24 quit 10 years ago Un iversity of 00:00:00 00:00:00 [facility] Tobacco use and 2017-04-18 2017-04-18 Former user Universi ty of exposure 00:00:00 00:00:00 [facility] Social History 2017-03-12 2017-03-12 [facility] 05:59:00 05:59:00 History of 2007-04-19 Smoker University of tobacco use 00:00:00 [facility] Sex [birth year] Universit y of 00:00:00 00:00:00 [facility] Smoking Status Start Date Stop Date Source Former smoker 2017-04-18 00:00:00 2017-04-18 00:00:[address] [facility] Medications Ordered Filled Start Stop Current Ordering Indication Dosage Frequency Signature Comments Components Source Medication Medication Date Date Medication? Clinician (SIG) Name Name hydrocortis Yes [id number] Apply to Univers one 2.5 % 1-04 area(s) 2 ity o f cream 00:00: (two) [place] 00 times Medical daily. Branch hydrocortis Yes [id number] Apply to Univers one 2.5 % 1-04 area(s) 2 ity o f cream 00:00: (two) [place] 00 times Medical daily. Branch hydrOXYzine 2021- Yes [id number] 50mg Take 1 Univers 50 mg 04-18 tablet by ity of tablet 00:00: 05:59 mouth 3 [place] 00 :00 (three) Medical times [place] daily as needed for Itching for up to 10 days. dexamethaso 2020-04 No 10mg 10 mg, Uni vers ne 06-06 Oral, ity of (DECADRON 00:00: 22:59 ONCE, 1 [place] PHOS[place] 00 :00 dose, On Medic al injection [facility] 10 mg 04/04/21 at 1800, Routine ondansetron 2020-04 No 4mg 4 mg, Slow Univers (ZOFRAN 06-05 IV Push, ity of (PF)) 22:15: 22:03 ONCE, 1 [place] injection 4 00 :00 dose, On Medi elian mg [facility] 04/04/21 at 1615, BE morpHINE 2020-04 No 4mg 4 mg, Slow Un wanda injection 4 06-05 IV Push, ity of mg 22:15: 22:05 ONCE, 1 [place] 00 :00 dose, On Medical [facility] 04/04/21 at 1615, STAT ondansetron 2020-04 No 4mg 4 mg, Slow Univers (ZOFRAN 06-05 IV Push, ity of (PF)) 22:15: 21:17 ONCE, 1 [place] injection 4 00 :00 dose, On Medi elian mg [facility] 04/04/21 at 1615, Routine iopamidol 2020-04- No [id number] 120mL 120 mL, Univers (ISOVUE 06-05 Intravenou ity o f 370-500 mL) 21:44: 22:00 s, ONCE, 1 [place] injection 00 :00 dose, On Medica l 120 mL [facility] 04/04/21 at 1600, Routine dicyclomine 2020-04 Yes [id number] 10mg Take 1 Univers (BENTYL) 10 2-21 capsule by it y of mg capsule 00:00: mouth [place] 00 every 8 Medical (eight) Branch hours as needed for Abdominal pain. dicyclomine 2020-04 Yes [id number] 10mg Take 1 Univers (BENTYL) 10 2-21 capsule by it y of mg capsule 00:00: mouth [place] 00 every 8 Medical (eight) Branch hours as needed for Abdominal pain. dicyclomine 2020-04 Yes [id number] 10mg Take 1 Univers (BENTYL) 10 2-21 capsule by it y of mg capsule 00:00: mouth [place] 00 every 8 Medical (eight) Branch hours as needed for Abdominal pain. dicyclomine 2020-04 Yes [id number] 10mg Take 1 Univers (BENTYL) 10 2-21 capsule by it y of mg capsule 00:00: mouth [place] 00 every 8 Medical (eight) Branch hours as needed for Abdominal pain. benzonatate Yes [id number] 100mg Take 1 Univers 100 mg 8-22 capsule by ity of capsule 00:00: mouth 3 [place] 00 (three) Medical times Branch daily as needed for Cough. ondansetron Yes [id number] 4mg Take 1 Univers 4 mg 8-22 tablet by ity of disintegrat 00:00: mouth [place] ing tablet 00 every 8 Medica l (eight) Branch hours as needed for Nausea and Vomiting (N/V). benzonatate Yes [id number] 100mg Take 1 Univers 100 mg 8-22 capsule by ity of capsule 00:00: mouth 3 [place] 00 (three) Medical times Branch daily as needed for Cough. ondansetron 0 Yes [id number] 4mg Take 1 Univers 4 mg 8-22 tablet by ity of disintegrat 00:00: mouth [place] ing tablet 00 every 8 Medica l (eight) Branch hours as needed for Nausea and Vomiting (N/V). benzonatate 0 Yes [id number] 100mg Take 1 Univers 100 mg 8-22 capsule by ity of capsule 00:00: mouth 3 [place] 00 (three) Medical times Branch daily as needed for Cough. ondansetron 2021-0 Yes [id number] 4mg Take 1 Univers 4 mg 8-22 tablet by ity of disintegrat 00:00: mouth [place] ing tablet 00 every 8 Medica l (eight) Branch hours as needed for Nausea and Vomiting (N/V). benzonatate 0 Yes [id number] 100mg Take 1 Univers 100 mg 8-22 capsule by ity of capsule 00:00: mouth 3 00 (three) Medical times Branch daily as needed for Cough. ondansetron 0 Yes [id number] 4mg Take 1 Univers 4 mg 8-22 tablet by ity of disintegrat 00:00: mouth [place] ing tablet 00 every 8 Medica l (eight) Branch hours as needed for Nausea and Vomiting (N/V). benzonatate Yes [id number] 100mg Take 1 Univers 100 mg 8-22 capsule by ity of capsule 00:00: mouth 3 00 (three) Medical times Branch daily as needed for Cough. ondansetron 0 Yes [id number] 4mg Take 1 Univers 4 mg 8-22 tablet by ity of disintegrat 00:00: mouth [place] ing tablet 00 every 8 Medica l (eight) Branch hours as needed for Nausea and Vomiting (N/V). sertraline Yes Take by Uni vers HCl 3-20 mouth. ity of (SERTRALINE 18:17: [place] ORAL) [address] [place] [address] Branch sertraline Yes Take by Uni vers HCl 3-20 mouth. ity of (SERTRALINE 13:17: [place] ORAL) [address] [place] [address] Branch sertraline Yes Take by Uni vers HCl 3-20 mouth. ity of (SERTRALINE 13:17: [place] ORAL) [address] [place] [address] Branch sertraline Yes Take by Uni vers HCl 3-20 mouth. ity of (SERTRALINE 13:17: [place] ORAL) [address] [place] [address] Branch sertraline Yes Take by Uni vers HCl 3-20 mouth. ity of (SERTRALINE 13:17: [place] ORAL) [address] [place] [address] benzonatate Yes [id number] 100mg Take 1 Univers 100 mg 1-07 capsule by ity of capsule 00:00: mouth 3 00 (three) Medical times Branch daily as needed for Cough. chlorphenir Yes [id number] 4mg Take 1 Univers amine 4 mg 1-07 tablet by ity of tablet 00:00: mouth [place] 00 every 6 Medical (six) Branch hours as needed for Allergies or Runny nose. multivitami Yes [id number] 1{capsu Take 1 Univers n capsule 1-07 le} capsule by ity of 00:00: mouth [place] 00 daily. Medical Branch calcium-mag Yes [id number] Take as Univers nesium-zinc 1-07 directed ity of 333-133-8.3 00:00: for daily [place] mg Tab 00 dose. Medical Branch ondansetron Yes [id number] 4mg Take 1 Univers 4 mg 1-07 tablet by ity of disintegrat 00:00: mouth [place] ing tablet 00 every 8 Medica l (eight) Branch hours as needed for Nausea and Vomiting (N/V). benzonatate Yes [id number] 100mg Take 1 Univers 100 mg 1-07 capsule by ity of capsule 00:00: mouth 3 [place] 00 (three) Medical times Branch daily as needed for Cough. chlorphenir Yes [id number] 4mg Take 1 Univers amine 4 mg 1-07 tablet by ity of tablet 00:00: mouth [place] 00 every 6 Medical (six) Branch hours as needed for Allergies or Runny nose. multivitami Yes [id number] 1{capsu Take 1 Univers n capsule 1-07 le} capsule by ity of 00:00: mouth [place] 00 daily. Medical Branch calcium-mag Yes [id number] Take as Univers nesium-zinc 1-07 directed ity of 333-133-8.3 00:00: for daily [place] mg Tab 00 dose. Medical Branch ondansetron Yes [id number] 4mg Take 1 Univers 4 mg 1-07 tablet by ity of disintegrat 00:00: mouth [place] ing tablet 00 every 8 Medica l (eight) Branch hours as needed for Nausea and Vomiting (N/V). benzonatate Yes [id number] 100mg Take 1 Univers 100 mg 1-07 capsule by ity of capsule 00:00: mouth 3 [place] 00 (three) Medical times Branch daily as needed for Cough. chlorphenir Yes [id number] 4mg Take 1 Univers amine 4 mg 1-07 tablet by ity of tablet 00:00: mouth [place] 00 every 6 Medical (six) Branch hours as needed for Allergies or Runny nose. multivitami Yes [id number] 1{capsu Take 1 Univers n capsule 1-07 le} capsule by ity of 00:00: mouth [place] 00 daily. Medical Branch calcium-mag Yes [id number] Take as Univers nesium-zinc 1-07 directed ity of 333-133-8.3 00:00: for daily [place] mg Tab 00 dose. Medical Branch ondansetron Yes [id number] 4mg Take 1 Univers 4 mg 1-07 tablet by ity of disintegrat 00:00: mouth [place] ing tablet 00 every 8 Medica l (eight) Branch hours as needed for Nausea and Vomiting (N/V). benzonatate Yes [id number] 100mg Take 1 Univers 100 mg 1-07 capsule by ity of capsule 00:00: mouth 3 [place] 00 (three) Medical times Branch daily as needed for Cough. chlorphenir Yes [id number] 4mg Take 1 Univers amine 4 mg 1-07 tablet by ity of tablet 00:00: mouth [place] 00 every 6 Medical (six) Branch hours as needed for Allergies or Runny nose. multivitami Yes [id number] 1{capsu Take 1 Univers n capsule 1-07 le} capsule by ity of 00:00: mouth [place] 00 daily. Medical Branch calcium-mag Yes [id number] Take as Univers nesium-zinc 1-07 directed ity of 333-133-8.3 00:00: for daily [place] mg Tab 00 dose. Medical Branch ondansetron Yes [id number] 4mg Take 1 Univers 4 mg 1-07 tablet by ity of disintegrat 00:00: mouth [place] ing tablet 00 every 8 Medica l (eight) Branch hours as needed for Nausea and Vomiting (N/V). benzonatate Yes [id number] 100mg Take 1 Univers 100 mg 1-07 capsule by ity of capsule 00:00: mouth 3 [place] 00 (three) Medical times Branch daily as needed for Cough. chlorphenir Yes [id number] 4mg Take 1 Univers amine 4 mg 1-07 tablet by ity of tablet 00:00: mouth [place] 00 every 6 Medical (six) Branch hours as needed for Allergies or Runny nose. multivitami Yes [id number] 1{capsu Take 1 Univers n capsule 1-07 le} capsule by ity of 00:00: mouth [place] 00 daily. Medical Branch calcium-mag Yes [id number] Take as Univers nesium-zinc 1-07 directed ity of 333-133-8.3 00:00: for daily [place] mg Tab 00 dose. Medical Branch ondansetron Yes [id number] 4mg Take 1 Univers 4 mg 1-07 tablet by ity of disintegrat 00:00: mouth [place] ing tablet 00 every 8 Medica l (eight) Branch hours as needed for Nausea and Vomiting (N/V). omeprazole 2019-04 Yes Univers 20 mg 0-02 ity of capsule 00:00: [place] [facility] amitriptyli 2019-04 Yes Univer s ne 25 mg 0-02 ity of tablet 00:00: [place] [facility] omeprazole 2020- Yes Univers 20 mg 0-02 ity of capsule 00:00: [place] [facility] amitriptyli 2020- Yes Univer s ne 25 mg 0-02 ity of tablet 00:00: [place] [facility] omeprazole 2020- Yes Univers 20 mg 0-02 ity of capsule 00:00: [place] [facility] amitriptyli 2020- Yes Univer s ne 25 mg 0-02 ity of tablet 00:00: [place] [facility] omeprazole 2020- Yes Univers 20 mg 0-02 ity of capsule 00:00: [place] [facility] amitriptyli 2020- Yes Univer s ne 25 mg 0-02 ity of tablet 00:00: [place] [facility] omeprazole 2020- Yes Univers 20 mg 0-02 ity of capsule 00:00: [place] [facility] amitriptyli 2020- Yes Univer s ne 25 mg 0-02 ity of tablet 00:00: [place] [facility] proMETHazin 2019-0 Yes [id number] 25mg Take 1 Univers e 25 mg 7-13 tablet by ity of tablet 00:00: mouth [place] 00 every 6 Medical (six) Branch hours as needed for Nausea and Vomiting (N/V). proMETHazin 2020-0 Yes [id number] 25mg Take 1 Univers e 25 mg 7-13 tablet by ity of tablet 00:00: mouth [place] 00 every 6 Medical (six) Branch hours as needed for Nausea and Vomiting (N/V). proMETHazin 2020-0 Yes [id number] 25mg Take 1 Univers e 25 mg 7-13 tablet by ity of tablet 00:00: mouth [place] 00 every 6 Medical (six) Branch hours as needed for Nausea and Vomiting (N/V). proMETHazin 2020-0 Yes [id number] 25mg Take 1 Univers e 25 mg 7-13 tablet by ity of tablet 00:00: mouth [place] 00 every 6 Medical (six) Branch hours as needed for Nausea and Vomiting (N/V). proMETHazin 2020-0 Yes [id number] 25mg Take 1 Univers e 25 mg 7-13 tablet by ity of tablet 00:00: mouth [place] 00 every 6 Medical (six) Branch hours as needed for Nausea and Vomiting (N/V). meloxicam 2019-0 Yes [id number] 7.5mg Take 1 Univers 7.5 mg 1-16 tablet by ity of tablet 00:00: mouth [place] 00 daily. [facility] Branch meloxicam 2020-0 Yes [id number] 7.5mg Take 1 Univers 7.5 mg 1-16 tablet by ity of tablet 00:00: mouth [place] 00 daily. [facility] Branch meloxicam 2020-0 Yes [id number] 7.5mg Take 1 Univers 7.5 mg 1-16 tablet by ity of tablet 00:00: mouth [place] 00 daily. [facility] meloxicam 2020-0 Yes [id number] 7.5mg Take 1 Univers 7.5 mg 1-16 tablet by ity of tablet 00:00: mouth [place] 00 daily. [facility] meloxicam 2020-0 Yes [id number] 7.5mg Take 1 Univers 7.5 mg 1-16 tablet by ity of tablet 00:00: mouth [place] 00 daily. [facility] Branch Celecoxib Celecoxib 2017- Yes JHON Q0.5D TAKE 1 Univers 200 MG Oral 200 MG Oral 2-06 PACINI CAPSULE ity of Capsule Capsule 00:00: P.A. TWICE 00 DAILY WITH [facility] FOOD. ans ofloxacin 2013-0 Yes Gaurang 2 drp, Lencho merritt ophthalmic 1-14 [place] LEFT EYE, l 0.3% 22:05: Rose QID, 5 ml, Deidra nn solution 24 Substitute Allowed Immunizations Ordered Filled Immunization Date Status Comments Sourc e Immunization Name Name SARS-COV-2 COVID-19 2020-12-16 Completed Unive rsity of PFIZER VACCINE 00:00:00 [facility] SARS-COV-2 COVID-19 2020-12-16 Completed Unive rsity of PFIZER VACCINE 00:00:00 [facility] SARS-COV-2 COVID-19 2020-12-16 Completed Unive rsity of PFIZER VACCINE 00:00:00 [facility] SARS-COV-2 COVID-19 2020-12-16 Completed Unive rsity of PFIZER VACCINE 00:00:00 [facility] SARS-COV-2 COVID-19 2020-12-16 Completed Unive rsity of PFIZER VACCINE 00:00:00 [facility] SARS-COV-2 COVID-19 2020-11-25 Completed Unive rsity of PFIZER VACCINE 00:00:00 [facility] SARS-COV-2 COVID-19 2020-11-25 Completed Unive rsity of PFIZER VACCINE 00:00:00 [facility] SARS-COV-2 COVID-19 2020-11-25 Completed Unive rsity of PFIZER VACCINE 00:00:00 [facility] SARS-COV-2 COVID-19 2020-11-25 Completed Unive rsity of PFIZER VACCINE 00:00:00 [facility] SARS-COV-2 COVID-19 2020-11-25 Completed Unive rsity of PFIZER VACCINE 00:00:00 [facility] Vital Signs Vital Name Observation Time Observation Value Comments Source Systolic blood 2021-04-18 23:17:00 117 mm[Hg] Univer sity of pressure [facility] Diastolic blood 2021-04-18 23:17:00 81 mm[Hg] Unive rsity of pressure [facility] Heart rate 2021-04-18 23:17:00 82 /min [facility] Body temperature 2021-04-18 23:17:00 37.11 Krystina [facility] [place] [facility] Respiratory rate 2021-04-18 23:17:00 18 /min [facility] [place] [facility] Body height 2021-04-18 23:17:00 190.5 cm [facility] [place] [facility] Body weight 2021-04-18 23:17:00 104.781 kg [facility] [place] [facility] BMI 2021-04-18 23:17:00 28.87 kg/m2 [facility] [place] [facility] Oxygen saturation in 2021-04-18 23:17:00 97 /min University of Arterial blood by [employer] elian Pulse oximetry Branch Systolic blood 2021-04-04 20:05:00 124 mm[Hg] Univer sity of pressure [place] [facility] Diastolic blood 2021-04-04 20:05:00 80 mm[Hg] Unive rsity of pressure [place] [facility] Heart rate 2021-04-04 20:00:00 83 /min [facility] [place] [facility] Body temperature 2021-04-04 20:00:00 36.83 Krystina [facility] [place] [facility] Respiratory rate 2021-04-04 20:00:00 20 /min [facility] [place] [facility] Body height 2021-04-04 20:00:00 190.5 cm [facility] [place] [facility] Body weight 2021-04-04 20:00:00 105.189 kg [facility] [place] [facility] BMI 2021-04-04 20:00:00 28.99 kg/m2 [facility] [place] [facility] Oxygen saturation in 2021-04-04 20:00:00 98 /min University of Arterial blood by [employer] el[employer] Pulse oximetry Branch Systolic blood 2021-04-04 23:02:00 122 mm[Hg] Univer sity of pressure [place] [facility] Diastolic blood 2021-04-04 23:02:00 75 mm[Hg] Unive rsity of pressure [place] [facility] Heart rate 2021-04-04 23:02:00 69 /min [facility] [place] [facility] Respiratory rate 2021-04-04 23:02:00 16 /min Univ [facility] [place] [facility] Oxygen saturation in 2021-04-04 23:02:00 99 /min University of Arterial blood by [employer] Pulse oximetry Branch Body temperature 2021-04-04 20:55:00 37.22 Krystina [facility] Body height 2021-04-04 20:55:00 190.5 cm [facility] Body weight 2021-04-04 20:55:00 104.781 kg [facility] BMI 2021-04-04 20:55:00 28.87 kg/m2 [facility] HEIGHT 2020-02-05 07:40:00 190.5 cm WEIGHT 2020-02-05 07:40:00 96.9 kg Weight 2012-04-28 20:22:00 [facility] Height 2012-04-28 20:22:00 190.50 cm [facility] Procedures Procedure Date / Time Performed Performing Clinician Sour e CT ABDOMEN PELVIS W 2021-04-04 21:52:21 Singer [facility] CONTRAST [facility] URINALYSIS 2021-04-04 21:16:00 [facility] LIPASE 2021-04-04 21:11:00 [facility] COMP. METABOLIC PANEL 2021-04-04 21:11:00 Naranjo [facility] ([id number]) [facility] CBC WITH DIFF 2021-04-04 21:11:00 [facility] CONSENT/REFUSAL FOR 2021-04-04 20:40:12 Doctor Unassigned, No [facility] [place] DIAGNOSIS AND Name Medical Branch TREATMENT SARS-COV-2 COVID-19 2020-12-16 19:14:50 [facility], [facility] [place] V[facility]INE,0.3ML,IM Name Medical Branch (PFIZER) [U] XRAY KNEE 4 OR 2019-05-11 00:00:00 [facility] [facility] MORE VWS RIGHT 11555 Physicians [id number] 2019-04-21 00:00:00 BELINDA [facility] [id number] 2019-04-17 00:00:00 BELINDA [facility] [id number] 2019-04-17 00:00:00 [facility] [id number] 2019-04-03 00:00:00 LORA [facility] [id number] 2019-04-03 00:00:00 MARRO.02 [facility] [id number] 2019-03-30 00:00:00 MARRO.02 [facility] [id number] 2019-03-30 00:00:00 MARRO.02 [facility] [id number] 2019-03-25 00:00:00 MARRO.02 [facility] Center [U] XRAY KNEE 4 OR 2017-03-11 00:00:00 [facility] [place] MORE VWS RIGHT 58051 Physicians [U] XR KNEE 4 OR MORE 2017-03-11 [facility] Encounters Start End Encounter Admission Attending Care Care Encounter Source Date/Time Date/Time Type Type Clinicians Facility Department ID 2021-02-13 Emergency [facility] [id number] Univers 17:13:[address] [facility] 2021-02-12 Emergency X [facility] [id number] Univers 17:30:[address] [facility] 2021-02-12 Emergency [facility] [id number] Univers 07:01:[address] [facility] 2021-02-11 Emergency [facility] [id number] Univers 15:44:[address] [facility] 2021-02-11 Emergency [facility] [id number] Univers 06:38:[address] [facility] 2021-02-10 Emergency [facility] [id number] Univers 06:29:[address] [facility] 2021-02-10 Emergency [facility] [id number] Univers 04:45:20 ity [facility] 2020-01-25 Outpatient SYSTEM, [facility] SAMANTHA [id number] 14:55:26 PROVIDER Raymundo o n 2019-04-16 Inpatient EM Lackeila, [facility] [id number] [facility] 15:17:00 Macarena [facility] 2019-04-14 Inpatient EM Lackeila, [facility] [id number] [facility] 14:52:00 Macarena [id number] [facility] 2021-06-22 2021-06-22 Outpatient R VERONICA [facility] [id number] Univers 08:45:00 08:45:00 , [facility]BBY [id number] [facility] 2021-05-14 2021-05-14 Refill Aimee [facility] [id number] Univers 00:00:00 00:00:00 [facility] [id number] it y of ANTHONY [id number] Sinan as NORMAN?BLEA [id number] [address] OFFICE [facility] 2021-04-18 2021-04-18 Outpatient R [facility] [id number] Univers 20:00:00 20:00:00 [id number] [facility] 2021-04-18 2021-04-18 Urgent [facility] [id number] Univers 20:00:00 20:00:00 Care [facility] [id number] it y of ANTHONY 4.2.7.2.686 Sinan as NORMAN?BLEA [id number] [address] OFFICE [facility] 2021-04-18 2021-04-18 [facility]patient [facility] [id number] Univers 20:00:00 18:16:10 RONNY [facility] 2021-04-04 2021-04-04 Nurse Nurse, [facility] [id number] Univers 17:15:00 17:35:00 Visit Sree [facility] [id number] ity [facility] [id number] Sinan as NORMAN?BLEA [id number] [address] OFFICE [facility] 2021-04-04 2021-04-04 Emergency X [facility] ERT [id number] Univers 14:46:00 17:11:00 JOHN [facility] 2021-04-04 2021-04-04 Emergency [facility] [id number] Univers 14:46:00 17:11:00 John JOBYFARIBA [id number] i ty [facility] [place] [id number] [facility] 084 [place] 2021-04-04 2021-04-04 Outpatient R [facility] [id number] Univers 14:00:00 14:00:00 [id number] [facility] 2021-04-04 2021-04-04 [facility] [id number] Univers 14:00:00 14:00:00 ANGEL [facility] 2020-12-16 2020-12-16 Imm/Inj Nurse, Adc Pob Immunization [facility] 1.2.840.114 [id number] Univers 13:52:30 13:53:00 Visit Mil [place] 350.1.13 .10 [facility] 4.2.7.2.686 Sinanguillermo benavides [facility] [id number] Ga dical nal 421 [facility] 2020-12-16 2020-12-16 Outpatient [facility] [id number] Univers 09:50:00 09:50:00 MIL [facility] 2020-12-04 2020-12-04 Outpatient R [facility] [id number] Univers 11:30:00 11:30:00 [id number] [facility] 2020-12-04 2020-12-04 Outpatient [facility] [id number] Univers 11:30:00 11:30:00 ATTENDING [facility] 2020-11-25 2020-11-25 Outpatient [facility] [id number] Univers 14:20:00 14:20:00 [facility] 2020-10-31 2020-11-01 Outpatient MEG SBILEY [facility] [id number] 11:05:00 15:55:00 KRUNAL alfaro 2020-10-28 2020-10-28 Outpatient MEG SIBLEY MDA MDA [id number] 09:03:51 23:59:00 KRUNAL alfaro 2020-10-28 2020-10-28 Outpatient MEG SIBLEY MDA MDA [id number] 09:29:25 09:45:35 KRUNAL alfaro 2020-10-28 2020-10-28 Outpatient MEG SIBLEY MDA MDA [id number] 07:25:08 07:25:08 KRUNAL alfaro 2020-10-21 2020-10-21 [facility] [id number] Univers 12:00:00 12:00:00 HUA [id number] [facility] 2020-10-21 2020-10-21 Outpatient [facility] [id number] Univers 12:00:00 12:00:00 HUA [facility] 2020-10-19 2020-10-19 Outpatient MEG SIBLEY, MDA MDA [id number] 14:05:49 14:05:49 KRUNAL alfaro 2020-10-18 2020-10-18 Outpatient Dimas [facility] [id number] Univers 14:45:00 14:45:00 MAEVE [id number] [facility] 2020-10-07 2020-10-07 Outpatient MEG SIBLEY, MDA MDA [id number] 10:45:00 23:59:00 KRUNAL alfaro 2020-10-07 2020-10-07 Outpatient MEG SIBLEY, MDA MDA [id number] 12:51:03 12:51:03 KRUNAL alfaro 2020-09-22 2020-09-22 Outpatient [facility] [id number] Univers 16:40:00 16:40:00 [id number] [facility] 2020-09-22 2020-09-22 Outpatient [facility] [id number] Univers 16:40:00 16:40:00 MARTHA [facility] 2020-09-20 2020-09-20 Outpatient [facility] [id number] Univers 16:00:00 16:00:00 [id number] [facility] 2020-09-08 2020-09-08 Outpatient [facility] [id number] Univers 16:00:00 16:00:00 [id number] [facility] 2020-09-06 2020-09-06 Outpatient R [facility] [id number] Univers 16:40:00 16:40:00 [id number] [facility] 2020-08-31 2020-08-31 Outpatient [facility] [id number] Univers 16:20:00 16:20:00 [id number] ity [facility] 2020-08-29 2020-08-29 Outpatient [facility] [id number] Univers 16:20:00 16:20:00 [id number] ity [facility] 2020-08-24 2020-08-24 Outpatient [facility] [id number] Univers 16:00:00 16:00:00 [id number] ity [facility] 2020-08-22 2020-08-22 Outpatient R [facility] [id number] Univers 16:00:00 16:00:00 [id number] ity [facility] 2020-08-15 2020-08-15 Outpatient R [facility] [id number] Univers 15:00:00 15:00:00 [id number] ity [facility] 2020-08-15 2020-08-15 [facility] [id number] Univers 15:00:00 15:00:00 [facility] 2020-07-28 2020-07-28 Outpatient R [facility] [id number] Univers 13:00:00 13:00:00 [id number] [facility] 2020-07-28 2020-07-28 [facility] [id number] Univers 13:00:00 13:00:00 [facility] 2020-07-18 2020-07-18 Outpatient R [facility] [id number] Univers 15:00:00 15:00:00 [id number] ity [facility] 2020-07-18 2020-07-18 [facility] [id number] Univers 15:00:00 15:00:00 [facility] 2020-07-06 2020-07-06 Outpatient R DOC [facility] [id number] Univers 16:20:00 16:20:00 JEFF [id number] ity [facility] 2020-07-06 2020-07-06 Outpatient R DOC [facility] [id number] Univers 16:20:00 16:20:00 JEFF [facility] 2020-06-30 2020-06-30 Outpatient R HERO [facility] [id number] Univers 19:45:00 19:45:[address] [facility] 2020-06-30 2020-06-30 Outpatient R [facility] [id number] Univers 18:20:00 18:20:00 [id number] [facility] 2020-06-30 2020-06-30 Outpatient R HERO [facility] [id number] Univers 18:20:00 18:20:[address] [facility] 2020-05-17 2020-05-17 Outpatient R [facility] [id number] Univers 19:40:00 19:40:00 [id number] [facility] 2020-05-17 2020-05-17 Outpatient R SREE [facility] [id number] Univers 19:40:00 19:40:00 ANGEL [facility] 2020-02-18 2020-02-18 Outpatient EL TOÑITO, MDA MDA [id number] 12:47:35 23:59:00 KRUNAL alfaro 2020-02-17 2020-02-17 Outpatient EL TOÑITO, MDA MDA [id number] 09:26:09 09:26:09 KRUNAL alfaro 2020-02-16 2020-02-16 Outpatient EL TOÑITO, MDA MDA [id number] 08:50:51 08:50:51 KRUNAL alfaro 2020-02-05 2020-02-05 Outpatient EL TOÑITO, MDA MDA [id number] MD 09:09:49 23:59:00 KRUNAL alfaro 2020-02-05 2020-02-05 Outpatient EL TOÑITO, MDA MDA [id number] MD 07:34:44 09:02:25 KRUNAL alfaro 2020-02-05 2020-02-05 Outpatient EL MDA MDA [id number] MD 07:25:07 07:25:14 Raymundo alfaro 2020-02-03 2020-02-03 Outpatient EL TOÑITO, MDA MDA [id number] MD 10:05:41 12:24:34 KRUNAL alfaro 2019-06-09 2019-06-09 Outpatient R KANWAL [facility] [id number] Univers 16:40:00 16:40:00 MARTHA [facility] 2019-05-25 2019-05-25 Outpatient R DOC [facility] [id number] Univers 15:15:00 15:23:13 [facility] 2019-05-20 2019-05-20 Outpatient Dimas ROACH [facility] [id number] Univers 12:37:07 23:59:00 [facility] 2019-05-13 2019-05-13 Outpatient R DOC [facility] [id number] Univers 09:30:00 10:11:12 [facility] 2019-05-11 2019-05-12 Outpt Diag nullFlavo [facility] [id number] Memoria 20:05:00 05:59:00 Services r Outpatient 02 l Imaging [facility] 2019-05-11 2019-05-11 AppointJOHNNIE [facility] [id number] Univers 10:30:00 10:30:00 t; JHON MAURICIO, at [facility] JHON, P.A. [place] P[facility]. Medicine Physici [facility] 2019-04-30 2019-04-30 Outpatient Dimas ROACH [facility] [id number] Univers 09:00:00 09:49:05 [facility] 2019-04-23 2019-04-23 Emergency [facility] 064 [id number] [place] 00:00:00 00:00:00 YAN [facility] 2019-04-14 2019-04-14 Outpatient R GRETA [facility] [id number] Univers 09:30:00 09:21:42 SEBASTIAN [facility] 2019-04-12 2019-04-12 Emergency X NIKO, [facility] ERT [id number] Univers 10:46:47 15:01:00 LEWIS [facility] 2019-04-05 2019-04-05 Emergency X RACQUEL, [facility] ERT [id number] Univers 13:54:27 20:21:00 STEPHAN [facility] 2019-03-23 2019-04-04 Inpatient FARHAD Gudino, [facility] [id number] [facility] 14:49:00 12:13:00 Cristian [id number] [facility] 2017-06-07 2017-07-07 OP Therapy nullFlavo [facility] [id number] Memoria 19:00:00 04:59:00 Patients r 02 l [place] 2017-07-04 2017-07-04 AppointJOHNNIE De La Torre [facility] [id number] Univers 11:00:00 11:00:00 t; MIR FARMER it y of EUSEBIO [place] Aylin FARMER NP ans 2017-06-04 2017-06-04 AppointJOHNNIE Rayo [facility] [id number] Univers 14:30:00 14:30:00 t; JHON MAURICIO, it y of JHON, P.AChristelle Rivera P.A. Physici ans 2017-04-26 2017-05-26 OP Therapy nullFlavo [facility] [id number] Memoria 16:00:00 05:59:00 Patients r 01 l [place] 2017-03-26 2017-04-25 OP Therapy nullFlavo [facility] [id number] Memoria 14:31:00 05:59:00 Patients r 00 l [place] 2017-03-11 2017-04-12 Outpatient [facility] [id number] 11:30:00 15:34:46 2017-03-11 2017-03-12 Outpt Diag nullFlavo [facility] [id number] Memoria 20:21:00 05:59:00 Services r Outpatient 01 l Imaging [place] Magdaleno 2017-03-11 2017-03-11 AppointJOHNNIE [facility] [id number] Univers 11:30:00 11:30:00 t; JHON MAURICIO, at [facility] it y of JHON, P.AChristelle Rivera P.A. Physici ans 2017-01-28 2017-01-28 Appointpastor KAPLAN, [facility] [id number] Univers 15:45:00 15:45:00 t; MIR FARMER it y of Miguel KAPLAN Physici [employer] ans 2017-01-21 2017-01-22 Outpt Diag nullFlavo [facility] [id number] Memoria 15:47:00 04:59:00 Services r Outpatient 00 l [facility] [place] 2017-01-21 2017-01-21 Appointmen HODAJO-ANN, [facility] UTP [id number] Univers 09:30:00 09:30:00 t; MIR FARMER it y of Miguel KAPLAN Physici NP ans 2012-04-28 2012-04-28 Emergency nullFlavo [facility] [id number] Memoria 14:07:00 16:17:00 r Medical 00 l [facility] Results Test Description Test Time Test Comments Results Result Comments Source COMP. METABOLIC PANEL (47735) 2021-04-04 21:41:07 Test Item Value Reference Range Interpretation Comme nts NA (test code = 1342780882) 138 mmol/L 135-145 K (test code = 1418614534) 3.8 mmol/L 3.5-5.0 CL (test code = 2839423688) 105 mmol/L 98-108 CO2 TOTAL (test code = 27 mmol/L 23-31 4873373822) AGAP (test code = 9998533950) 2-16 BUN (test code = 4928924932) 16 mg/dL 7-23 GLUCOSE (test code = 2097717216) 101 mg/dL 70-110 CREATININE (test code = 0.88 mg/dL 0.60-1.25 7310193780) TOTAL BILI (test code = 0.6 mg/dL 0.1-1.2 3249193795) CALCIUM (test code = 4534386513) 9.6 mg/dL 8.6-10.6 T PROTEIN (test code = 6.9 g/dL 6.3-8.2 0415431508) ALBUMIN (test code = 6395634929) 4.2 g/dL 3.5-5.0 ALK PHOS (test code = 7882033202) 52 U/L 34-122 ALTv (test code = 1742-6) 31 U/L 5-50 AST(SGOT) (test code = 30 U/L 13-40 1496918400) eGFR (test code = 3447679628) mL/min/1.73m2 MARGIE (test code = MARGIE) Association of Glomerular Filtration Rate (GFR) and Staging of Kidney Disease* + +--------- + ----+| GFR (mL/min/1.73 m2) ?| With Kidney Damage ?| ?Without Kidney Damage+ +--- + +| ?>90 ?| ?Stage one ?| ? Normal ?+ +-------- + -----+| ?60-89 ?| ?Stage two ?| ? Decreased GFR ? + +--------- + ----+| ?30-59 ?| ?Stage three ?| ? Stage three ? + +--------- + ----+| ?15-29 ?| ?Stage four ? | ? Stage four ?+ +-------- + -----+| ?<15 (or dialysis) ? ?| ?Stage five ? | ? Stage five ?+ +-------- + -----+ *Each stage assumes the associated GFR level has been in effect for at least three months. ?Stages 1 to 5, with or without kidney disease, indicate chronic kidney disease. Notes: Determination of stages one and two (with eGFR >59mL/min/1.73 m2) requires estimation of kidney damage for at least three months as defined by structural or functional abnormalities of the kidney, manifested by either:Pathological abnormalities or Markers of kidney damage (including abnormalities in the composition of the blood or urine or abnormalities in imaging tests). [facility] 21[facility]39:05 Test Item Value Reference Range Interpretation Comments LIPASE (test code = 9294149688) 223 U/L 0-220 H Lab Interpretation (test code = Abnormal 40637-0) [facility] WITH [id number] 21:31:23 Test Item Value Reference Range Interpretation Comments WBC (test code = See_Comment [Automated 2322-2) message] The sy stem which generated this result transmitted reference range : 4.20 - 10.70 10*3/?L. The reference range was not used to interpret this result as normal/abnormal . RBC (test code = See_Comment [Automated 568-9) message] The sy stem which generated this result transmitted reference range : 4.26 - 5.52 10*6/?L. The reference range was not used to interpret this result as normal/abnormal . HGB (test code = 15.1 g/dL 12.2-16.4 838-7) HCT (test code = 43.1 % 38.4-49.3 4544-3) MCV (test code = 91.9 fL 81.7-95.6 787-2) MCH (test code = 32.2 pg 26.1-32.7 785-6) MCHC (test code = 35.0 g/dL 31.2-35.0 786-4) RDW-SD (test code = 41.6 fL 38.5-51.6 79886-4) RDW-CV (test code = 12.5 % 12.1-15.4 788-0) PLT (test code = See_Comment [Automated 777-3) message] The sy stem which generated this result transmitted reference range : 150 - 328 10*3/ ?L. The reference r abdoulaye was not used to interpret this result as normal/abnormal . MPV (test code = 9.5 fL 9.8-13.0 L 03405-4) NRBC/100 WBC (test See_Comment [Automat ed code = 4570156768) message] The system which generated this result transmitted reference range : 0.0 - 10.0 /100 WBCs. The refer ence range was not u sed to interpret th is result as normal/abnormal . NRBC x10^3 (test code <0.01 See_Comment [Auto mated = 5607905445) message] The s ystem which generated this result transmitted reference range : 10*3/?L. The reference range was not used to interpret this result as normal/abnormal . GRAN MAT (NEUT) % 49.9 % (test code = 770-8) IMM GRAN % (test code 0.40 % = 4827346396) LYMPH % (test code = 39.4 % 736-9) MONO % (test code = 7.4 % 5905-5) EOS % (test code = 2.3 % 713-8) BASO % (test code = 0.6 % 706-2) GRAN MAT x10^3(ANC) 2.56 10*3/uL 1.99-6.95 (test code = 8933470754) IMM GRAN x10^3 (test <0.03 0.00-0.06 code = 2069354558) LYMPH x10^3 (test code 2.02 10*3/uL 1.09-3.23 = 731-0) MONO x10^3 (test code 0.38 10*3/uL 0.36-1.02 = 742-7) EOS x10^3 (test code = 0.12 10*3/uL 0.06-0.53 711-2) BASO x10^3 (test code 0.03 10*3/uL 0.01-0.09 = 704-7) Lab Interpretation Abnormal (test code = 60609-5) [facility] (THIAMINE)2019-04-27 15:58:00 Test Item Value Reference Range Interpretation Comments VITAMIN B1 102.2 nmol/L 66.5-200.0 Performed At: B N (THIAMINE) (test [facility] code = VITB1) [address] [id number] ra Luis Enrique PETTY Ph:[phone] VITAMIN D 1,70-[id number] 14:09:00 Test Item Value Reference Range Interpretation Comments VITAMIN D 25.4 pg/mL 19.9-79.3 Performed At: [facility] 1,25-DIHYDROXY (test [facility] [place] [address] code = ZYED066) [place], [place] [id number] angelina Dudley MD Ph:[phone] IMMUNOGLOBULIN G [id number] 06:09:00 Test Item Value Reference Range Interpretation Comments IMMUNOGLOBULIN G SUBCLASS 451 mg/dL 248-810 1 (test code = IGG1) IMMUNOGLOBULIN G SUBCLASS 422 mg/dL 130-555 2 (test code = IGG2) IMMUNOGLOBULIN G SUBCLASS 79 mg/dL 15-102 3 (test code = IGG3) IMMUNOGLOBULIN G SUBCLASS 30 mg/dL 2-96 Pe rformed At: 4 (test code = IGG4) [facility] [address] [id number] Kyle L MD Ph:[phone] rfor med At: Lab or[address] [id number] ra Luis Enrique PETTY Ph:[phone] IGG SUBCLASSES TOTAL 993 mg/dL 700-1600 (test code = IGGT) SURGICAL [id number] 14:14:00 RUN DATE: 04/22/19 [facility] - LAB PAGE 1 RUN TIME: 1414 Specimen Inquiry RUN USER: INTERFACE PATIENT: MARIA VICTORIA WOOD LOC: Tanvir POD C U #: [id number] AGE/SX: 34/M ROOM: [facility] RE04/16/19REG DR: Cristian Gudino MD : 84 BED: 1 DIS: STATUS: ADM IN TLOC: SPEC #: [id number] RECD: 04/21/19 STATUS: SOUT REQ #: [id number] SAMI: 04/21/19 [facility] DR: Cristian Gudino MD ENTERED: 04/21/19 SP TYPE: SURG OTHR DR: Self Referred Dmitry Cadet MD, Zachary DO Gathe,Joan Cifuentes Jr, MD,Clarisse Puentes MD No Primary Care PhysicianORDERED: PATHGM4, PATH SPEC, H E STAIN HISTOLOGY: TISSUE ID BLK PCS ZEV LEV / PROCEDURE DISPOSITION ____ ___ ___ ___ ___ ESOPHAGUS BX A 1 3 1 TISSUES: A. ESOPHAGUS BIOPSY - Upper Esophagus Bx CLINICALHISTORY Abdominal Pain FINAL DIAGNOSIS UPPER ESOPHAGUS, BIOPSY: - Squamous mucosa with minimal chronic inflammation. - No columnar mucosa or intestinal metaplasia is identified. - Negative for eosinophilic esophagitis. GROSS DESCRIPTION UPPER ESOPHAGUS: Multiple pieces of tissue which measure 1-2 mm each. Entirely submitted in a single cassette. RAB/eb MICROSCOPIC DESCRIPTION Microscopic performed. Signed SIGNATURE ON FILE Janessa Tellez MD 04/22/19 1414 END OF REPORT VITAMIN [id number] 04:43:00 Test Item Value Reference Range Interpretation Comments VITAMIN B12 (test code = VITB12) 1015 PG/ML 211-946 H [id number] 04:25:00 Test Item Value Reference Range Interpretation Comments AMYLASE (test code = ADINA) 52 U/L 0-100 N [id number] 04:24:00 Test Item Value Reference Range Interpretation Comments LIPASE (test code = LIP) 88 U/L 0-190 N BASIC METABOLIC [id number] 04:24:00 Test Item Value Reference Range Interpretation Comments SODIUM (test code 139 MMOL/L 136-143 N = NA) POTASSIUM (test 3.1 MMOL/L 3.5-5.1 L code = K) CHLORIDE (test 102 MMOL/L 98-107 N code = CL) CARBON DIOXIDE 23 mmol/L 24-31 L (test code = CO2) GLUCOSE (test code 56 mg/dL 70-104 L = GLU) BLOOD UREA 5.0 MG/DL 7.0-21.0 L NITROGEN (test code = BUN) GLOMERULAR >=60 max >60 The estimated FILTRATION RATE estimate glomerular (test code = GFR) filtration rate is computed usingpatient ra ce, age (>18), sex, and serum creatinin e. If anyof the neede d data elements a re missing the Laboratory maite ot compute an estimation of t he glomerular filtration rate . CREATININE (test 0.6 mg/dL 0.8-1.5 L code = CREAT) CALCIUM (test code 7.9 mg/dL 8.8-10.2 L = CA) CBC W/AUTO [id number] 04:08:00 Test Item Value Reference Range Interpretation Comments WHITE BLOOD CELL (test code = 4.0 x10 3/uL 4.8-10.8 L WBC) RED BLOOD CELL (test code = 3.99 x10 6/uL 4.70-6.10 L RBC) HEMOGLOBIN (test code = HGB) 12.3 g/dL 14.5-20 L HEMATOCRIT (test code = HCT) 37.1 % 42.0-52.0 L MEAN CELL VOLUME (test code = 93.0 fL 80.0-94.0 N MCV) MEAN CELL HGB (test code = MCH) 30.8 pg 27-31 N MEAN CELL HGB CONCENTRATION 33.2 G/DL 33-36.5 N (test code = MCHC) RED CELL DISTRIBUTION WIDTH 12.4 % 12.9-16.9 L (test code = RDW) PLATELET COUNT (test code = 157 150-440 N PLT) MEAN PLATELET VOLUME (test code 10.0 fL 8.9-12.4 N = MPV) NEUTROPHIL % (test code = NT%) 50.2 % 42.2-75.2 N LYMPHOCYTE % (test code = LY%) 35.6 % 20.5-51.1 N MONOCYTE % (test code = MO%) 7.3 % 1.7-9.3 N EOSINOPHIL % (test code = EO%) 6.1 % 0.0-7.0 N BASOPHIL % (test code = BA%) 0.5 % 0-2.5 N NEUTROPHIL # (test code = NT#) 1.99 x10 3/uL 1.80-7.70 N LYMPHOCYTE # (test code = LY#) 1.41 x10 3/uL 1.00-4.80 N MONOCYTE # (test code = MO#) 0.29 x10 3/uL 0.00-0.80 N EOSINOPHIL # (test code = EO#) 0.24 x10 3/uL 0.00-0.45 N BASOPHIL # (test code = BA#) 0.02 x10 3/uL 0.0-0.20 N - MRI L-SPINE W/O [id number] 19:29:00Patient Name: MARIA VICTORIA WOOD Unit No: [id number] EXAMS: CPT CODE: [id number] MRI L-SPINE W/O CONT [id number] Dictation location: [facility]. MRI LUMBAR SPINE WITHOUT CONTRAST. HISTORY: BACK PAIN TECHNIQUE: Multiplanar and multiple pulse sequences were obtained through the lumbar spine without contrast. COMPARISON: None FINDINGS: Lumbar vertebral alignment is within normal limits. 5 nonrib-bearing lumbar vertebral bodies are presumed with the first conical shaped vertebral body designated S1.The conus medullaris terminates at T12-L1. No signal intensity changes are present within the conus medullaris or cauda equina. Disc desiccation is noted at L4-L5. At the L1-L2 level, no spinal canal stenosis or neuroforaminal narrowing. At the L2-L3 level, posterior bulging annulus and bilateral facet arthrosis causes up to mild spinal canal stenosis without neuroforaminal narrowing. At the L3-L4 level, posterior bulging annulus and bilateral facet arthrosis causes up to mild spinal canal stenosis without neuroforaminal narrowing. At the L4-L5 level, posterior bulging annulus and bilateralfacet arthrosis causes a mild spinal canal stenosis and mild bilateral neuroforaminal narrowing. Small right foraminal annular tear. At the L5-S1 level, mild bilateral facet arthrosis spinal canal stenosis or neuroforaminal narrowing. The signal intensities within the vertebral bodies are normal. IMPRESSION: Mild lumbar spondylosis with up to mild spinal canal stenosis and neuroforaminal narrowing. [id number] Reported and signed by: YISSEL RUST M.D. Name: MARIA VICTORIA WOOD [facility] Phys: LILO.Samuel - Mantmarguerite,Benjamin-Augie [address] : 1985 Age: 34 Sex: M [place] [address] Loc: P.0732 1 Exam Date: 04/21/2019 Status: ADM IN PH: FAX: PAGE 1 Signed Report (CONTINUED) Patient Name: MARIA VICTORIA WOOD Unit No: [id number] EXAMS: CPT CODE: [id number] MRI L-SPINEW/O CONT [id number] <Continued> CC: Myles Pike DO; No Primary Care Physician; Cristian dowell MD Technologist: Yang Babin (Dimas) Trscr Dt/Tm: 04/21/2019 (1928) by:[email or web address] Printed Date/Time: 04/21/2019 (1931) Name: ISRAELVALDEMAR [facility] Phys: LILO - Glendy,Benjamin-Augie [address] : Age: 34 Sex: M [place] [address] Loc: P.45219 Exam Date: 04/21/2019 Status: ADM IN PH: FAX: PAGE 2 Signed ReportLIVER FUNCTION [id number] 04:30:00 Test Item Value Reference Range Interpretation Comments TOTAL PROTEIN (test code = PROT) 5.4 g/dL 6.3-8.3 L ALBUMIN (test code = ALB) 3.1 G/DL 3.5-5.0 L BILIRUBIN TOTAL (test code = BILT) 0.3 mg/dL 0.2-1.0 N BILIRUBIN DIRECT (test code = <0.2 mg/dL 0.0-0.2 N BILD) SGOT/AST (test code = AST) 17 IU/L 10-34 N SGPT/ALT (test code = ALT) 25 U/L 10-44 N ALKALINE PHOSPHATASE (test code = 68 U/L 45-120 N ALKP) [id number] 04:29:00 Test Item Value Reference Range Interpretation Comments PREALBUMIN (test code = PREALB) 13.1 MG/ML 15-42 L BASIC METABOLIC [id number] 04:27:00 Test Item Value Reference Range Interpretation Comments SODIUM (test code 141 MMOL/L 136-143 N = NA) POTASSIUM (test 3.6 MMOL/L 3.5-5.1 N code = K) CHLORIDE (test 103 MMOL/L 98-107 N code = CL) CARBON DIOXIDE 22 mmol/L 24-31 L (test code = CO2) GLUCOSE (test code 54 mg/dL 70-104 L = GLU) BLOOD UREA 4.4 MG/DL 7.0-21.0 L NITROGEN (test code = BUN) GLOMERULAR >=60 max >60 The estimated FILTRATION RATE estimate glomerular (test code = GFR) filtration rate is computed usingpatient ra ce, age (>18), sex, and serum creatinin e. If anyof the neede d data elements a re missing the Laboratory maite ot compute an estimation of t he glomerular filtration rate . CREATININE (test 0.7 mg/dL 0.8-1.5 L code = CREAT) CALCIUM (test code 7.7 mg/dL 8.8-10.2 L = CA) CBC W/AUTO [id number] 04:22:00 Test Item Value Reference Range Interpretation Comments WHITE BLOOD CELL (test code = 4.5 x10 3/uL 4.8-10.8 L WBC) RED BLOOD CELL (test code = 4.00 x10 6/uL 4.70-6.10 L RBC) HEMOGLOBIN (test code = HGB) 12.6 g/dL 14.5-20 L HEMATOCRIT (test code = HCT) 37.1 % 42.0-52.0 L MEAN CELL VOLUME (test code = 92.8 fL 80.0-94.0 N MCV) MEAN CELL HGB (test code = MCH) 31.5 pg 27-31 H MEAN CELL HGB CONCENTRATION 34.0 G/DL 33-36.5 N (test code = MCHC) RED CELL DISTRIBUTION WIDTH 12.2 % 12.9-16.9 L (test code = RDW) PLATELET COUNT (test code = 178 150-440 N PLT) MEAN PLATELET VOLUME (test code 10.7 fL 8.9-12.4 N = MPV) NEUTROPHIL % (test code = NT%) 54.5 % 42.2-75.2 N LYMPHOCYTE % (test code = LY%) 30.9 % 20.5-51.1 N MONOCYTE % (test code = MO%) 8.0 % 1.7-9.3 N EOSINOPHIL % (test code = EO%) 6.2 % 0.0-7.0 N BASOPHIL % (test code = BA%) 0.2 % 0-2.5 N NEUTROPHIL # (test code = NT#) 2.45 x10 3/uL 1.80-7.70 N LYMPHOCYTE # (test code = LY#) 1.39 x10 3/uL 1.00-4.80 N MONOCYTE # (test code = MO#) 0.36 x10 3/uL 0.00-0.80 N EOSINOPHIL # (test code = EO#) 0.28 x10 3/uL 0.00-0.45 N BASOPHIL # (test code = BA#) 0.01 x10 3/uL 0.0-0.20 N - XR UGI W/O [id number] 12:16:00Patient Name: MARIA VICTORIA WOOD Unit No: [id number] EXAMS: CPT CODE: [id number] XR UGI W/O KUB 82098 Single contrast upper GI 04/20/2019 CLINICAL INDICATION: Status postgastric sleeve, abdominal pain LOCATION: W1 REPORTED FLUOROSCOPY TIME: 0.4 FINDINGS: Fluoroscopic imaging during oral administration of thin liquid barium shows contrast passing into the stomach and small bowel with no evidence for leak. The esophagus is normal in caliber and motility. IMPRESSION: Unremarkable postoperative examination. at 1216 Reported and signed by: MARISA MARCOS M.D. CC: Dmitry Cadet MD; Macarena Villegas MD; No Primary Care Physician Technologist: Jeremiah Hdz Fluoro Time: DAP (Gy m2): Air Kerma (mGy): Trscr Dt/Tm: 04/20/2019 (1216) by:[email or web address] Printed Date/Time: 04/20/2019 (1219) Name: ISRAEL,[facility] Phys: Dmitry Andrade MD [address] DOB: 1985 Age: 34 Sex: M [place] [address] Loc: P.0732 1 Exam Date: 04/20/2019 Status: ADM IN PH: FAX: PAGE 1 Signed Report- XR SMALL [id number] 12:15:00Patient Name: MARIA VICTORIA WOOD Unit No: [id number] EXAMS: CPT CODE: [id number] XR SMALL BOWEL 93589 Small bowel series 5 views 04/20/2019 INDICATION: abdominal pain and vomiting COMPARISON: None available FINDINGS: Small bowel transit time is 45 minutes, within normal limits. No intraluminal lesion or extraluminal mass effect is evident. There is no abnormal bowel dilation. The folds of the ileum and jejunum are within normal limits. IMPRESSION: Unremarkable small bowel series. at 1215 Reported and signed by: MARISA MARCOS M.D. CC: Macarena Villegas MD; No Primary Care Physician; Veto Schmid MD Technologist: Jeremiah La Time: DAP (Gy m2): Air Kerma (mGy):Trscr Dt/Tm: 04/20/2019 (1215) by:[email or web address] Printed Date/Time: 04/20/2019 (1218) Name: ISRAEL,[facility] Phys: Veto Villa MD [address] DOB: 1985 Age: 34 Sex: M [place] [address] Loc: P.0732 1 Exam Date: 04/20/2019 Status: ADM IN PH: FAX: PAGE 1 Signed ReportCOMPREHENSIVE METABOLIC [id number] 06:07:00 Test Item Value Reference Range Interpretation Comments SODIUM (test code = 141 MMOL/L 136-143 N NA) POTASSIUM (test 3.8 MMOL/L 3.5-5.1 N code = K) CHLORIDE (test code 102 MMOL/L 98-107 N = CL) CARBON DIOXIDE 25 mmol/L 24-31 N (test code = CO2) GLUCOSE (test code 77 mg/dL 70-104 N = GLU) BLOOD UREA NITROGEN 6.3 MG/DL 7.0-21.0 L (test code = BUN) GLOMERULAR >=60 max >60 The estimated FILTRATION RATE estimate glomerular (test code = GFR) filtration rate is computed usingpatient ra ce, age (>18), sex, and serum creatinin e. If anyof the ne eded data elements a re missing the Laboratory maite ot compute an estimation of t he glomerular filtration rate . CREATININE (test 0.8 mg/dL 0.8-1.5 N code = CREAT) TOTAL PROTEIN (test 5.7 g/dL 6.3-8.3 L code = PROT) ALBUMIN (test code 3.6 G/DL 3.5-5.0 N = ALB) CALCIUM (test code 8.5 mg/dL 8.8-10.2 L = CA) BILIRUBIN TOTAL 0.4 mg/dL 0.2-1.0 N (test code = BILT) SGOT/AST (test code 32 IU/L 10-34 N = AST) SGPT/ALT (test code 50 U/L 10-44 H = ALT) ALKALINE 98 U/L 45-120 N PHOSPHATASE (test code = ALKP) [id number] 05:38:00 Test Item Value Reference Range Interpretation Comments LIPASE (test code = LIP) 114 U/L 0-190 N CBC W/AUTO [id number] 04:59:00 Test Item Value Reference Range Interpretation Comments WHITE BLOOD CELL (test code = 4.7 x10 3/uL 4.8-10.8 L WBC) RED BLOOD CELL (test code = 4.47 x10 6/uL 4.70-6.10 L RBC) HEMOGLOBIN (test code = HGB) 13.8 g/dL 14.5-20 L HEMATOCRIT (test code = HCT) 41.7 % 42.0-52.0 L MEAN CELL VOLUME (test code = 93.3 fL 80.0-94.0 N MCV) MEAN CELL HGB (test code = MCH) 30.9 pg 27-31 N MEAN CELL HGB CONCENTRATION 33.1 G/DL 33-36.5 N (test code = MCHC) RED CELL DISTRIBUTION WIDTH 12.2 % 12.9-16.9 L (test code = RDW) PLATELET COUNT (test code = 209 150-440 N PLT) MEAN PLATELET VOLUME (test code 10.3 fL 8.9-12.4 N = MPV) NEUTROPHIL % (test code = NT%) 52.0 % 42.2-75.2 N LYMPHOCYTE % (test code = LY%) 33.2 % 20.5-51.1 N MONOCYTE % (test code = MO%) 6.6 % 1.7-9.3 N EOSINOPHIL % (test code = EO%) 7.6 % 0.0-7.0 H BASOPHIL % (test code = BA%) 0.4 % 0-2.5 N NEUTROPHIL # (test code = NT#) 2.46 x10 3/uL 1.80-7.70 N LYMPHOCYTE # (test code = LY#) 1.57 x10 3/uL 1.00-4.80 N MONOCYTE # (test code = MO#) 0.31 x10 3/uL 0.00-0.80 N EOSINOPHIL # (test code = EO#) 0.36 x10 3/uL 0.00-0.45 N BASOPHIL # (test code = BA#) 0.02 x10 3/uL 0.0-0.20 N - XR FLUOROSCOPY 0-60 [id number] 16:28:00Patient Name: MARIA VICTORIA WOOD Unit No: [id number] EXAMS: CPT CODE: [id number] XR FLUOROSCOPY 0-60 MIN 23706 C3 TIME OF STUDY: 04/17/2019 1:00 PM REASON FOR EXAM:ERCP COMPARISON: MRCP 04/04/2019 FINDINGS: 18 coned-down intraoperative fluoroscopic views of the abdomen demonstrate postoperative changes of ERCP The soft tissues and osseous structures are suboptimally evaluated secondary to fluoroscopic technique. Total milligray (mGy) dosage: 5.9 IMPRESSION: Intraoperative fluoroscopic views of ERCP. Please see operative report. at 5193 Reported and signed by: DANY DAVIS M.D. CC: Macarena Villegas MD; No Primary Care Physician Technologist: GERSON FONTANA RT(R) Fluoro Time: DAP (Gy m2): Air Kerma (mGy): Trscr Dt/Tm: 04/17/2019 (1628) by:[email or web address] Printed Date/Time: 04/17/2019 (6218) Name: MARIA VICTORIA WOOD [facility] Phys: Macarena Juarez MD [address] : 1985 Age: 34 Sex: [place] [address] Loc: P.0732 1 Exam Date: 04/17/2019 Status: ADM IN PH: FAX: PAGE 1 Signed Report- US GUIDANCE VASC [id number] 16:34:00Patient Name: MARIA VICTORIA WOOD Unit No: [id number] EXAMS: CPT CODE: [id number] US GUIDANCE VASC ACCESS 64878 C3 PICC PLACEMENT UNDER ULTRASOUND FLUORO DATE OF PROCEDURE: 04/16/2019 INDICATION: Difficult venous access, requiring access for antibiotics. ACCESS SITE: Right brachial vein CATHETER: [employer] Power PICC double lumen Total milligray (mGy) dosage: 8.1 TECHNIQUE: The risks, benefits, and alternatives to the procedure and sedation were explained, and written informed consent obtained. With the patient in the supine position, the right upper arm was prepped and draped in the usual sterile fashion and the skin was anesthetized with 2% Lidocaine. Ultrasound of the upper extremity was performed for demonstration of patency of potentia l candidates for venous access. Under ultrasound guidance, the right brachial vein was accessed with a micropuncture needle. Needle entering the vessel was documented and an ultrasound imaged was saved and sent to PACS. An 0.018" wire advanced centrally. A peel-away sheath was placed. A PICC line was cut to length, advanced through the peel-away sheath and positioned centrally using fluoroscopy. The sheath was removed, and hemostasis achieved using manual compression. The catheter was secured to the skin. The catheter was flushed and a sterile dressing was applied. The patient tolerated the procedure well and remained in stable condition throughout the stay in the angiography suite. FINDINGS:1. Patent right brachial vein by ultrasound. Needle entry into the vein documented, and an ultrasound image was stored to PACS. 2. A limited documentation radiograph shows the catheter tip appropriately placed in the right atrium. IMPRESSION: Successful image-guided placement of an upper extremity PICC into a patent right br achial vein. [facility]: Dmitry And[facility] MD [address] : 1985 Age: 34 Sex: M [place] [address] Loc: P.0732 1 Exam Date: 04/16/2019 Status: ADM IN PH: FAX: PAGE 1 Signed Report (CONTINUED) Patient Name: MARIA VICTORIA WOOD Unit No: [id number] EXAMS: CPT CODE: [id number] US GUIDANCE VASC ACCESS 14944 <Continued> at 1634 Reported and signed by: DANY DAVIS M.D. CC: Dmitry Cadet MD; Macarena Villegas MD; No Primary Care Physician Technologist: Izaiah Gilmore; Nelson Srinivasan (R),(CT),() Fluoro Time: DAP (Gy m2): Air Kerma (mGy): Trscr Dt/Tm: 04/16/2019 (1634) by:[email or web address] Printed Date/Time: 04/16/2019 (1637) Name: MARIA VICTORIA WOOD [facility] Phys: Dmitry Andrade MD [address] : 1985 Age: 34 Sex: M [place] [address] Loc: P.0732 1 Exam Date: 04/16/2019 Status: ADM IN PH: FAX: PAGE 2 Signed Report- FLUORO GUID CTRL ACC [id number] 16:34:00Patient Name: MARIA VICTORIA WOOD Unit No: [id number] EXAMS: CPT CODE: [id number] FLUORO GUID CTRL ACC DEV 68694 C3 PICC PLACEMENT UNDER ULTRASOUND FLUORO DATE OF PROCEDURE: 04/16/2019 INDICATION: Difficult venous access, requiring access for antibiotics. ACCESS SITE: Right brachial vein CATHETER: Bard Power PICC double lumen Total milligray (mGy) dosage: 8.1 TECHNIQUE: The risks, benefits, and alternatives to the procedure and sedation were explained, and written informed consent obtained. With the patient in the supine position, the right upper arm was prepped and draped in the usual sterile fashion and the skin was anesthetized with 2% Lidocaine. Ultrasound of the upper extremity was performed for demonstration of patency of potential candidates for venous access. Under ultrasound guidance, the right brachial vein was accessed with a micropuncture needle. Needle entering the vessel was documented and an ultrasound imaged was saved and sent to PACS. An 0.018" wire advanced centrally. A peel- away sheath was placed. A PICC line was cut to length, advanced through the peel-away sheath and positioned centrally using fluoroscopy. The sheath was removed, and hemostasis achieved using manual compression. The catheter was secured to the skin. The catheter was flushed and a sterile dressing was applied. The patient tolerated the procedure well and remained in stable condition throughout the stay in the angiography suite. FINDINGS:1. Patent right brachial vein by ultrasound. Needle entry into the vein documented, and an ultrasound image was stored to PACS. 2. A limited documentation radiograph shows the catheter tip appropriately placed in the right atrium. IMPRESSION: Successful image-guided placement of an upper extremity PICC into a patent right brachial vein. Name: [facility]: Dmitry And[facility] MD [address] DOB: 1 06/03/1984 Age: 34 Sex: [place] [address] Loc: P.0732 1 Exam Date: 04/16/2019 Status: ADM IN PH: FAX: PAGE 1 Signed Report (CONTINUED) Patient Name: MARIA VICTORIA WOOD Unit No: [id number] EXAMS: CPT CODE: [id number] FLUORO GUID CTRL ACC DEV 11978 <Continued> at 1634 Reported and signed by: DANY DAVIS M.D. CC: Dmitry Cadet MD; Macarena Villegas MD; No Primary Care Physician Technologist: Iziaah Gilmore; Nelson Srinivasan (R),(CT),() Fluoro Time: DAP (Gy m2): Air Kerma (mGy): Trscr Dt/Tm: 04/16/2019 (1634) by:[email or web address] Printed Date/Time: 04/16/2019 (9967) Name: MARIA VICTORIA WOOD [facility] Phys: Dmitry Andrade MD [address] DOB: 1985 Age: 34 [place] [id number] [id number] Loc: P.0732 1 Exam Date: 04/16/2019 Status: ADM IN PH: FAX: PAGE 2 Signed ReportLIVER FUNCTION [id number] 12:14:00 Test Item Value Reference Range Interpretation Comments TOTAL PROTEIN (test code = PROT) 5.9 g/dL 6.3-8.3 L ALBUMIN (test code = ALB) 3.9 G/DL 3.5-5.0 N BILIRUBIN TOTAL (test code = BILT) 0.4 mg/dL 0.2-1.0 N BILIRUBIN DIRECT (test code = <0.2 mg/dL 0.0-0.2 N BILD) SGOT/AST (test code = AST) 16 IU/L 10-34 N SGPT/ALT (test code = ALT) 17 U/L 10-44 N ALKALINE PHOSPHATASE (test code = 62 U/L 45-120 N ALKP) PROTHROMBIN [id number] 11:57:00 Test Item Value Reference Range Interpretation Comments PROTHROMBIN TIME 13.7 SECONDS 10.3-12.9 H PATIENT (test code = PTP) INTERNATIONAL 1.18 INR UNIT 0.9-1.11 H The INR is us eful only NORMAL RATIO (test for monit oring code = INR) anticoagulant therapy.It may be unreliable in t he initial phase o f antigoagulation and in unstable patien ts. Indication for Anticoagulation Recommend ed INR 1. Prevention o f venous thomboembolism 2.0-3.0in high -risk patients; treat ment of venousthrombosi s and pulmonary embol ism aftera course o f heparin; preven tion of systemicembolis m in a variety of cond itions, including atria l fibrillation an d prothetic tissu e heart valves, 2. Pros thetic mechanical hear t valves; 2.5-3.5recurren t systemic emboli sm. [id number] 11:56:00 Test Item Value Reference Range Interpretation Comments LIPASE (test code = LIP) 110 U/L 0-190 N THROMBOPLASTIN TIME [id number] 11:45:00 Test Item Value Reference Range Interpretation Comments THROMBOPLASTIN TIME 36.0 SECONDS 26.0-35.9 H INTERPRE TATIVE PARTIAL (test code = DATA:Th erapeutic PTT) range: Unfractionated heparin:47 - 71 seconds Argatroban:1.5 to 3 times the basel ine PTT - MRI [id number] 17:06:00Patient Name: MARIA VICTORIA WOOD Unit No: [id number] EXAMS: CPT CODE: [id number] MRI MRCP 82037 Location code:R 16 MRI Abdomen without Contrast (MRCP) History: abdominal pain elevated lipase . Comparison: CT scan 03/23/2019. Technique: Long and short axis fat and water weighted sequences were obtained through the abdomen. Three-dimensional reconstruction of the biliary tree. Findings: Lung bases are clear. The intrahepatic and extrahepatic biliary tree appears normal in caliber with no evidence of dilation or filling defect. The pancreatic duct is unremarkable insofar as visualized. Cholecystectomy. Fatty infiltrate of liver. No focal lesion is seen. Limited images of the abdomen reveal no obvious abnormality of the spleen, pancreas adrenal glands, or kidneys. Evidence of gastric sleeve surgery. Bowel is otherwiseunremarkable. No adenopathy or free fluid is seen. Impression: 1.Cholecystectomy. Biliary ducts are normal in appearance. 2. Fatty infiltrate of the liver. 3. Gastric sleeve surgery. at 1706 Reported and signed by: MARYCARMEN ARENAS M.D. CC: Peterson Ceja DO; No Primary Care Physician Technologist: Yang Babin) [facility] D[facility]/Tm: 04/14/2019 (1701) by:Keshia Printed Date/Time: 04/14/2019 (0107) Name: MARIA VICTORIA WOOD [facility] Phys: Peterson Garrett DO [address] : 1985 Age: 34 Sex: [place] [address] Loc: P.ERMS 1 Exam Date: 04/14/2019 Status:ADM IN PH: FAX: PAGE 1 Signed ReportLIVER FUNCTION [id number] 13:42:00 Test Item Value Reference Range Interpretation Comments TOTAL PROTEIN (test code = PROT) 7.9 g/dL 6.3-8.3 N ALBUMIN (test code = ALB) 4.6 G/DL 3.5-5.0 N BILIRUBIN TOTAL (test code = BILT) 0.6 mg/dL 0.2-1.0 N BILIRUBIN DIRECT (test code = <0.2 mg/dL 0.0-0.2 N BILD) SGOT/AST (test code = AST) 24 IU/L 10-34 N SGPT/ALT (test code = ALT) 25 U/L 10-44 N ALKALINE PHOSPHATASE (test code = 77 U/L 45-120 N ALKP) [id number] 13:42:00 Test Item Value Reference Range Interpretation Comments LIPASE (test code = LIP) 249 U/L 0-190 H UA RFLX MICR CULT IF [id number] 13:34:00 Test Item Value Reference Range Interpretation Comments UA COLOR (test code = COLU) YELLOW DISCRIPT YELLOW UA APPEARANCE (test code = CLEAR DISCRIPT CLEAR APPU) UA GLUCOSE DIPSTICK (test NEGATIVE mg/dL NEGATIVE code = DGLUU) UA BILIRUBIN DIPSTICK (test MODERATE NEGATIVE A code = BILU) UA KETONE DIPSTICK (test code 40 mg/dL NEGATIVE A = KETU) UA SPECIFIC GRAVITY (test >=1.030 1.005-1.030 code = SGU) UA BLOOD DIPSTICK (test code NEGATIVE NEGATIVE = KRISTIAN) UA PH DIPSTICK (test code = 5.5 5.0-9.0 AICHA) UA PROTEIN DIPSTICK (test NEGATIVE mg/dL NEGATIVE code = PROU) UA UROBILINOGEN DIPSTICK 0.2 mg/dL 0.2-1.0 (test code = URO) UA NITRITE DIPSTICK (test NEGATIVE NEGATIVE code = ANGELITA) UA LEUKOCYTE ESTERASE NEGATIVE NEGATIVE DIPSTICK (test code = LEUU) UA WBC (test code = WBCU) #WBC/HPF 0-2 UA RBC (test code = RBCU) #RBC/HPF 0-2 UA BACTERIA (test code = /HPF NONE-TRACE BACU) UA SQUAMOUS CELLS (test code /LPF NONE-TRACE = SQU) Indication for culture: Suprapubic PainUA RFLX MICR CULT IF INDICATED 2019-04-14 13:34:00 Test Item Value Reference Range Interpretation Comments UA COLOR (test code = COLU) YELLOW DISCRIPT YELLOW UA APPEARANCE (test code = CLEAR DISCRIPT CLEAR APPU) UA GLUCOSE DIPSTICK (test NEGATIVE mg/dL NEGATIVE code = DGLUU) UA BILIRUBIN DIPSTICK (test MODERATE NEGATIVE A code = BILU) UA KETONE DIPSTICK (test code 40 mg/dL NEGATIVE A = KETU) UA SPECIFIC GRAVITY (test >=1.030 1.005-1.030 code = SGU) UA BLOOD DIPSTICK (test code NEGATIVE NEGATIVE = KRISTIAN) UA PH DIPSTICK (test code = 5.5 5.0-9.0 AICHA) UA PROTEIN DIPSTICK (test NEGATIVE mg/dL NEGATIVE code = PROU) UA UROBILINOGEN DIPSTICK 0.2 mg/dL 0.2-1.0 (test code = URO) UA NITRITE DIPSTICK (test NEGATIVE NEGATIVE code = ANGELITA) UA LEUKOCYTE ESTERASE NEGATIVE NEGATIVE DIPSTICK (test code = LEUU) Indication for culture: Suprapubic PainCBC W/AUTO [id number] 13:34:00 Test Item Value Reference Range Interpretation Comments WHITE BLOOD CELL (test code = 5.9 x10 3/uL 4.8-10.8 N WBC) RED BLOOD CELL (test code = 5.45 x10 6/uL 4.70-6.10 N RBC) HEMOGLOBIN (test code = HGB) 17.1 g/dL 14.5-20 N HEMATOCRIT (test code = HCT) 50.1 % 42.0-52.0 N MEAN CELL VOLUME (test code = 91.9 fL 80.0-94.0 N MCV) MEAN CELL HGB (test code = MCH) 31.4 pg 27-31 H MEAN CELL HGB CONCENTRATION 34.1 G/DL 33-36.5 N (test code = MCHC) RED CELL DISTRIBUTION WIDTH 12.7 % 12.9-16.9 L (test code = RDW) PLATELET COUNT (test code = 310 150-440 N PLT) MEAN PLATELET VOLUME (test code 11.0 fL 8.9-12.4 N = MPV) NEUTROPHIL % (test code = NT%) 55.0 % 42.2-75.2 N LYMPHOCYTE % (test code = LY%) 31.9 % 20.5-51.1 N MONOCYTE % (test code = MO%) 7.1 % 1.7-9.3 N EOSINOPHIL % (test code = EO%) 5.1 % 0.0-7.0 N BASOPHIL % (test code = BA%) 0.7 % 0-2.5 N NEUTROPHIL # (test code = NT#) 3.27 x10 3/uL 1.80-7.70 N LYMPHOCYTE # (test code = LY#) 1.89 x10 3/uL 1.00-4.80 N MONOCYTE # (test code = MO#) 0.42 x10 3/uL 0.00-0.80 N EOSINOPHIL # (test code = EO#) 0.30 x10 3/uL 0.00-0.45 N BASOPHIL # (test code = BA#) 0.04 x10 3/uL 0.0-0.20 N LACTIC ACID [id number] 12:27:00 Test Item Value Reference Range Interpretation Comments LACTIC ACID POC (test code = 1.82 mmol/L 0.9-1.70 H LACTP) CHEMISTRY 8 [id number] 12:08:00 Test Item Value Reference Range Interpretation Comments SODIUM POC (test code = NAP) MMOL/L 135-146 N POTASSIUM POC (test code = KP) MMOL/L 3.5-4.9 N IONIZED CALCIUM POC (test code = mmol/L 1.12-1.32 N CAIP) GLUCOSE POC (test code = GLUP) mg/dL 70-105 N BUN POC (test code = BUNP) MG/DL 8-26 N CREATININE POC (test code = CREATP) mg/dL 0.6-1.3 N GLOMERULAR FILTRATION RATE POC (test 110 70-162 N code = GFRP) CHEMISTRY 8 [id number] 12:08:00 Test Item Value Reference Range Interpretation Comments SODIUM POC (test code = NAP) 140 MMOL/L 135-146 N POTASSIUM POC (test code = KP) 3.9 MMOL/L 3.5-4.9 N CHLORIDE POC (test code = CLP) 100 MMOL/L 98-109 N CO2 POC (test code = CO2P) 27 mmol/L 24-29 N IONIZED CALCIUM POC (test code = 1.16 mmol/L 1.12-1.32 N CAIP) GLUCOSE POC (test code = GLUP) 96 mg/dL 70-105 N BUN POC (test code = BUNP) 13 MG/DL 8-26 N CREATININE POC (test code = 0.8 mg/dL 0.6-1.3 N CREATP) GLOMERULAR FILTRATION RATE POC 110 70-162 N (test code = GFRP) SURGICAL [id number] 16:19:00 RUN DATE: 04/06/19 [facility] - LAB PAGE 1 RUN TIME: 1619 Specimen Inquiry RUN USER: INTERFACE PATIENT: MARIA VICTORIA WOOD LOC: PSharitaS POD C U #: [id number] AGE/SX: 34/M ROOM: [facility] RE03/23/19REG DR: Cristian Gudino MD : 84 BED: 1 DIS: 04/04/19 STATUS: DIS IN TLOC: SPEC #: [id number] RECD: 04/03/19 STATUS: AG REQ #: [id number] SAMI: 04/03/193 [facility] DR: Cristian Gudino MD ENTERED: 04/03/19 SP TYPE: SURG OTHR DR: Self Referred Dmitry Cadet MD,Rizwana Pike,Joan Juarez,Clarisse Puentes MD No Primary Care PhysicianORDERED: PATHGM4, PATH SPEC, H E STAIN HISTOLOGY: TISSUE ID BLK PCS ZEV LEV / PROCEDURE DISPOSITION ____ ___ ___ ___ ___ SIGMOID COLON P A 1 3 1 TISSUES: A. SIGMOID COLON POLYP - SigmoidPolyp CLINICAL HISTORY Abdominal Pain FINAL DIAGNOSIS COLON, SIGMOID, POLYP, BIOPSY: - Tubular adenoma. GROSS DESCRIPTION SIGMOID POLYP: A single piece of tissue which measures 2 mm. Entirely submitted in a single cassette. RAB/eb MICROSCOPIC DESCRIPTION Microscopic performed. Signed SIGNATURE ON FILE Xochitl Davila MD 04/06/19 1619 ------- ----- END OF REPORT [id number] 00:26:00 Test Item Value Reference Range Interpretation Comments GLUBED (test code = GLUBED) 99 MG/DL 70-105 N [id number] 16:45:00 Test Item Value Reference Range Interpretation Comments GLUBED (test code = GLUBED) 109 MG/DL 70-105 H BASIC METABOLIC [id number] 06:21:00 Test Item Value Reference Range Interpretation Comments SODIUM (test code 141 MMOL/L 136-143 N = NA) POTASSIUM (test 3.8 MMOL/L 3.5-5.1 N code = K) CHLORIDE (test 99 MMOL/L 98-107 N code = CL) CARBON DIOXIDE 29 mmol/L 24-31 N (test code = CO2) GLUCOSE (test code 132 mg/dL 70-104 H = GLU) BLOOD UREA 9.0 MG/DL 7.0-21.0 N NITROGEN (test code = BUN) GLOMERULAR >=60 max >60 The estimated FILTRATION RATE estimate glomerular (test code = GFR) filtration rate is computed usingpatient ra ce, age (>18), sex, and serum creatinin e. If anyof the neede d data elements a re missing the Laboratory maite ot compute an estimation of t he glomerular filtration rate . CREATININE (test 0.7 mg/dL 0.8-1.5 L code = CREAT) CALCIUM (test code 9.0 mg/dL 8.8-10.2 N = CA) [id number] 00:08:00 Test Item Value Reference Range Interpretation Comments GLUBED (test code = GLUBED) 118 MG/DL 70-105 H [id number] 11:58:00 Test Item Value Reference Range Interpretation Comments GLUBED (test code = GLUBED) 120 MG/DL 70-105 H BASIC METABOLIC [id number] 06:03:00 Test Item Value Reference Range Interpretation Comments SODIUM (test code 138 MMOL/L 136-143 N = NA) POTASSIUM (test 3.5 MMOL/L 3.5-5.1 N code = K) CHLORIDE (test 97 MMOL/L 98-107 L code = CL) CARBON DIOXIDE 30 mmol/L 24-31 N (test code = CO2) GLUCOSE (test code 113 mg/dL 70-104 H = GLU) BLOOD UREA 9.5 MG/DL 7.0-21.0 N NITROGEN (test code = BUN) GLOMERULAR >=60 max >60 The estimated FILTRATION RATE estimate glomerular (test code = GFR) filtration rate is computed usingpatient ra ce, age (>18), sex, and serum creatinin e. If anyof the neede d data elements a re missing the Laboratory maite ot compute an estimation of t he glomerular filtration rate . CREATININE (test 0.6 mg/dL 0.8-1.5 L code = CREAT) CALCIUM (test code 9.1 mg/dL 8.8-10.2 N = CA) [id number] 01:38:00 Test Item Value Reference Range Interpretation Comments GLUBED (test code = GLUBED) 101 MG/DL 70-105 N [id number] 15:31:00 Test Item Value Reference Range Interpretation Comments GLUBED (test code = GLUBED) 113 MG/DL 70-105 H [id number] 13:36:00 Test Item Value Reference Range Interpretation Comments GLUBED (test code = GLUBED) 113 MG/DL 70-105 H SURGICAL [id number] 10:43:00 RUN DATE: 04/01/19 [facility] - LAB PAGE 1 RUN TIME: 1043 Specimen Inquiry RUN USER: INTERFACE PATIENT: MARIA VICTORIA WOOD MACARENA LOC: P.7S POD C U #: [id number] AGE/SX: 33/M ROOM: [facility] RE03/23/19RAMIN DR: Cristian Gudino MD : 84 BED: 1 DIS: STATUS: ADM IN TLOC: SPEC #: [id number] RECD: 03/30/19 STATUS: AG CURRY #: [id number] SAMI: 03/30/[address]: Cristian Gudino MD ENTERED: 03/30/19 SP TYPE: SURG OTHR DR: Self Referred Dmitry Cadet MD,Rizwana Goodman,Clarisse Puentes MD No Primary Care PhysicianORDERED: PATHGM4, PATH SPEC, H E STAIN HISTOLOGY: TISSUE ID BLK PCS ZEV LEV/ PROCEDURE DISPOSITION ____ ___ ___ ___ ___ DESCEND COLON P A 2 3 TISSUES: A. DESCENDING COLON POLYP - Descending Colon Tissue CLINICAL HISTORY Abdominal Pain FINAL DIAGNOSIS DESCENDING COLON TISSUE, EXCISION: - Nodular piece of benign fibroadipose tissue with extensive fat necrosis and calcification. - A separate piece of benign adipose tissue with mild chronicinflammation. GROSS DESCRIPTION DESCENDING COLON TISSUE: A piece of adipose tissue (1.6 x1 x 0.5 cm) and a separate piece of firm nodular yellow-schmid tissue which measures 1.5 x 1.5 x 1 cm. The nodular piece is sectioned and has the gross appearance of fat necrosis. Network Development Coordinator sections are submitted as follows: A1, quality control representative sections of nodule; A2, quality control representative sections of separate piece of adipose tissue. RAB/eb MICROSCOPIC DESCRIPTION Microscopic performed.---- -------- Signed SIGNATURE ON FILE Janessa Tellez MD 04/01/19 1043 END OF REPORT [id number] 08:44:00 Test Item Value Reference Range Interpretation Comments GLUBED (test code = GLUBED) 113 MG/DL 70-105 H BASIC METABOLIC [id number] 05:49:00 Test Item Value Reference Range Interpretation Comments SODIUM (test code 138 MMOL/L 136-143 N = NA) POTASSIUM (test 3.8 MMOL/L 3.5-5.1 N code = K) CHLORIDE (test 99 MMOL/L 98-107 N code = CL) CARBON DIOXIDE 25 mmol/L 24-31 N (test code = CO2) GLUCOSE (test code 114 mg/dL 70-104 H = GLU) BLOOD UREA 8.4 MG/DL 7.0-21.0 N NITROGEN (test code = BUN) GLOMERULAR >=60 max >60 The estimated FILTRATION RATE estimate glomerular (test code = GFR) filtration rate is computed usingpatient ra ce, age (>18), sex, and serum creatinin e. If anyof the neede d data elements a re missing the Laboratory maite ot compute an estimation of t he glomerular filtration rate . CREATININE (test 0.7 mg/dL 0.8-1.5 L code = CREAT) CALCIUM (test code 9.2 mg/dL 8.8-10.2 N = CA) [id number] 05:49:00 Test Item Value Reference Range Interpretation Comments PHOSPHOROUS (test code = PHOS) 3.2 mg/dL 2.7-4.5 N [id number] 05:49:00 Test Item Value Reference Range Interpretation Comments MAGNESIUM (test code = MAG) 1.7 mg/dL 1.4-2.6 N [id number] 02:06:00 Test Item Value Reference Range Interpretation Comments GLUBED (test code = GLUBED) 125 MG/DL 70-105 H [id number] 11:35:00 Test Item Value Reference Range Interpretation Comments GLUBED (test code = GLUBED) 104 MG/DL 70-105 N [id number] 07:50:00 Test Item Value Reference Range Interpretation Comments GLUBED (test code = GLUBED) 95 MG/DL 70-105 N [id number] 05:54:00 Test Item Value Reference Range Interpretation Comments GLUBED (test code = GLUBED) 102 MG/DL 70-105 N [id number] 23:50:00 Test Item Value Reference Range Interpretation Comments GLUBED (test code = GLUBED) 101 MG/DL 70-105 N SURGICAL [id number] 11:50:00 RUN DATE: 03/30/19 [facility] - LAB PAGE 1 RUN TIME: 1150 Specimen Inquiry RUN USER: INTERFACE PATIENT: MARIA VICTORIA WOOD MACARENA LOC: P.7S POD C U #: [id number] AGE/SX: 33/M ROOM: [facility] RE03/23/19RAMIN DR: Cristian Gudino MD : 84 BED: 1 DIS: STATUS: ADM IN TLOC: SPEC #: [id number] RECD: 03/26/19 STATUS: AG CURRY #: [id number] SAMI: 03/25/[address]: Cristian Gudino MD ENTERED: 03/26/19 SP TYPE: SURG OTHR DR: Self Referred Dmitry Cadet MD, Patricia MD Marvin,Clarisse Puentes MD No Primary Care PhysicianORDERED: PATHGM4, PATH SPEC, H E STAIN, IHC AB STAIN I HISTOLOGY: TISSUE ID BLK PCS ZEV LEV/ PROCEDURE DISPOSITION ____ ___ ___ ___ ___ ANTRUM BIOPSY A 1 3 1 TISSUES: A. ANTRUM BIOPSY - Gastric Antrum Bx CLINICAL HISTORY Upper Abdominal Pain FINAL DIAGNOSIS GASTRIC ANTRUM, BIOPSY: Antral and oxyntic type gastric mucosa with mild chronic inflammation and reactive epithelial changes. - Focal active inflammation is identified. - Negative for H. pylori organisms (H. pylori immunostain). GROSS DESCRIPTION GASTRIC ANTRUM: Two pieces of tissue which measure 2 and 4 mm. Entirely submitted in a single cassette. RAB/eb MICROSCOPIC DESCRIPTI ON Microscopic performed. Signed SIGNATURE ON FILE Janessa Tellez MD 03/30/19 3100 END OF REPORT BASIC METABOLIC [id number] 04:18:00 Test Item Value Reference Range Interpretation Comments SODIUM (test code 135 MMOL/L 136-143 L = NA) POTASSIUM (test 3.6 MMOL/L 3.5-5.1 N code = K) CHLORIDE (test 96 MMOL/L 98-107 L code = CL) CARBON DIOXIDE 25 mmol/L 24-31 N (test code = CO2) GLUCOSE (test code 114 mg/dL 70-104 H = GLU) BLOOD UREA 8.2 MG/DL 7.0-21.0 N NITROGEN (test code = BUN) GLOMERULAR >=60 max >60 The estimated FILTRATION RATE estimate glomerular (test code = GFR) filtration rate is computed usingpatient ra ce, age (>18), sex, and serum creatinin e. If anyof the neede d data elements a re missing the Laboratory maite ot compute an estimation of t he glomerular filtration rate . CREATININE (test 0.7 mg/dL 0.8-1.5 L code = CREAT) CALCIUM (test code 9.5 mg/dL 8.8-10.2 N = CA) [id number] 04:18:00 Test Item Value Reference Range Interpretation Comments PHOSPHOROUS (test code = PHOS) 3.7 mg/dL 2.7-4.5 N [id number] 04:18:00 Test Item Value Reference Range Interpretation Comments MAGNESIUM (test code = MAG) 1.6 mg/dL 1.4-2.6 N [id number] 07:07:00 Test Item Value Reference Range Interpretation Comments PHOSPHOROUS (test code = PHOS) 3.9 mg/dL 2.7-4.5 N [id number] 07:07:00 Test Item Value Reference Range Interpretation Comments TRIGLYCERIDES (test code = TRIG) 142 mg/dL 35-160 N [id number] 07:07:00 Test Item Value Reference Range Interpretation Comments MAGNESIUM (test code = MAG) 1.7 mg/dL 1.4-2.6 N [id number] 07:07:00 Test Item Value Reference Range Interpretation Comments PREALBUMIN (test code = PREALB) 16.6 MG/ML 15-42 N [id number] 06:45:00 Test Item Value Reference Range Interpretation Comments PHOSPHOROUS (test code = PHOS) 3.9 mg/dL 2.7-4.5 N [id number] 06:45:00 Test Item Value Reference Range Interpretation Comments TRIGLYCERIDES (test code = TRIG) mg/dL 35-160 [id number] 06:45:00 Test Item Value Reference Range Interpretation Comments MAGNESIUM (test code = MAG) 1.7 mg/dL 1.4-2.6 N [id number] 06:45:00 Test Item Value Reference Range Interpretation Comments PREALBUMIN (test code = PREALB) 16.6 MG/ML 15-42 N BASIC METABOLIC [id number] 06:12:00 Test Item Value Reference Range Interpretation Comments SODIUM (test code 135 MMOL/L 136-143 L = NA) POTASSIUM (test 3.8 MMOL/L 3.5-5.1 N code = K) CHLORIDE (test 97 MMOL/L 98-107 L code = CL) CARBON DIOXIDE 22 mmol/L 24-31 L (test code = CO2) GLUCOSE (test code 88 mg/dL 70-104 N = GLU) BLOOD UREA 7.4 MG/DL 7.0-21.0 N NITROGEN (test code = BUN) GLOMERULAR >=60 max >60 The estimated FILTRATION RATE estimate glomerular (test code = GFR) filtration rate is computed usingpatient ra ce, age (>18), sex, and serum creatinin e. If anyof the neede d data elements a re missing the Laboratory maite ot compute an estimation of t he glomerular filtration rate . CREATININE (test 0.7 mg/dL 0.8-1.5 L code = CREAT) CALCIUM (test code 9.2 mg/dL 8.8-10.2 N = CA) [id number] 06:11:00 Test Item Value Reference Range Interpretation Comments AMYLASE (test code = ADINA) 79 U/L 0-100 N [id number] 06:11:00 Test Item Value Reference Range Interpretation Comments LIPASE (test code = LIP) 150 U/L 0-190 N LIVER FUNCTION [id number] 06:11:00 Test Item Value Reference Range Interpretation Comments TOTAL PROTEIN (test code = PROT) 6.3 g/dL 6.3-8.3 N ALBUMIN (test code = ALB) 3.9 G/DL 3.5-5.0 N BILIRUBIN TOTAL (test code = BILT) 0.4 mg/dL 0.2-1.0 N BILIRUBIN DIRECT (test code = BILD) 0.2 mg/dL 0.0-0.2 N SGOT/AST (test code = AST) 18 IU/L 10-34 N SGPT/ALT (test code = ALT) 14 U/L 10-44 N ALKALINE PHOSPHATASE (test code = 59 U/L 45-120 N ALKP) CBC W/AUTO [id number] 04:32:00 Test Item Value Reference Range Interpretation Comments WHITE BLOOD CELL (test code = 5.2 x10 3/uL 4.8-10.8 N WBC) RED BLOOD CELL (test code = 5.05 x10 6/uL 4.70-6.10 N RBC) HEMOGLOBIN (test code = HGB) 15.7 g/dL 14.5-20 N HEMATOCRIT (test code = HCT) 45.3 % 42.0-52.0 N MEAN CELL VOLUME (test code = 89.7 fL 80.0-94.0 N MCV) MEAN CELL HGB (test code = MCH) 31.1 pg 27-31 H MEAN CELL HGB CONCENTRATION 34.7 G/DL 33-36.5 N (test code = MCHC) RED CELL DISTRIBUTION WIDTH 12.1 % 12.9-16.9 L (test code = RDW) PLATELET COUNT (test code = 229 150-440 N PLT) MEAN PLATELET VOLUME (test code 10.4 fL 8.9-12.4 N = MPV) NEUTROPHIL % (test code = NT%) 57.0 % 42.2-75.2 N LYMPHOCYTE % (test code = LY%) 29.7 % 20.5-51.1 N MONOCYTE % (test code = MO%) 6.9 % 1.7-9.3 N EOSINOPHIL % (test code = EO%) 5.6 % 0.0-7.0 N BASOPHIL % (test code = BA%) 0.6 % 0-2.5 N NEUTROPHIL # (test code = NT#) 2.96 x10 3/uL 1.80-7.70 N LYMPHOCYTE # (test code = LY#) 1.54 x10 3/uL 1.00-4.80 N MONOCYTE # (test code = MO#) 0.36 x10 3/uL 0.00-0.80 N EOSINOPHIL # (test code = EO#) 0.29 x10 3/uL 0.00-0.45 N BASOPHIL # (test code = BA#) 0.03 x10 3/uL 0.0-0.20 N - XR SMALL [id number] 17:02:00Patient Name: MARIA VICTORIA WOOD Unit No: [id number] EXAMS: CPT CODE: [id number] XR SMALL BOWEL 76960 Indication: Upper abdominal pain. COMPARISON: CT study of 03/23/2019is reviewed FINDINGS: After oral contrast ingestion, multiple KUB imageswere obtained until contrast was seen to enter the colon. Small bowel transit time was 90 minutes. The mucosal folds throughout the jejunum and ileum appear normal. No strictures, masses, or other small bowel abnormalities are identified. IMPRESSION: 1. Unremarkable small bowel follow-through. at 1702 Reported and signed by: Cayetano Cornejo MD CC: Dmitry Cadet MD; No Primary Care Physician; Cristian Gudino MD Technologist: Eugenio Jugo Fluoro Time: DAP (Gy m2): Air Kerma (mGy): Trscr Dt/Tm: 03/26/2019 (1702) by:[email or web address] Printed Date/Time: 03/26/2019 (1974) Name: MARIA VICTORIA WOOD [facility] Phys: Dmitry Andrade MD [address] : 1985 Age: 33 Sex: [place] [address] Loc: P.0727 1 Exam Date: 03/26/2019 Status: ADM IN PH: FAX: PAGE 1 Signed ReportCBC W/AUTO [id number] 06:51:00 Test Item Value Reference Range Interpretation Comments WHITE BLOOD CELL (test code = 6.4 x10 3/uL 4.8-10.8 N WBC) RED BLOOD CELL (test code = 4.86 x10 6/uL 4.70-6.10 N RBC) HEMOGLOBIN (test code = HGB) 14.8 g/dL 14.5-20 N HEMATOCRIT (test code = HCT) 44.5 % 42.0-52.0 N MEAN CELL VOLUME (test code = 91.6 fL 80.0-94.0 N MCV) MEAN CELL HGB (test code = MCH) 30.5 pg 27-31 N MEAN CELL HGB CONCENTRATION 33.3 G/DL 33-36.5 N (test code = MCHC) RED CELL DISTRIBUTION WIDTH 12.1 % 12.9-16.9 L (test code = RDW) PLATELET COUNT (test code = 226 150-440 N PLT) MEAN PLATELET VOLUME (test code 10.5 fL 8.9-12.4 N = MPV) NEUTROPHIL % (test code = NT%) 71.5 % 42.2-75.2 N LYMPHOCYTE % (test code = LY%) 16.6 % 20.5-51.1 L MONOCYTE % (test code = MO%) 6.4 % 1.7-9.3 N EOSINOPHIL % (test code = EO%) 5.0 % 0.0-7.0 N BASOPHIL % (test code = BA%) 0.2 % 0-2.5 N NEUTROPHIL # (test code = NT#) 4.55 x10 3/uL 1.80-7.70 N LYMPHOCYTE # (test code = LY#) 1.06 x10 3/uL 1.00-4.80 N MONOCYTE # (test code = MO#) 0.41 x10 3/uL 0.00-0.80 N EOSINOPHIL # (test code = EO#) 0.32 x10 3/uL 0.00-0.45 N BASOPHIL # (test code = BA#) 0.01 x10 3/uL 0.0-0.20 N BASIC METABOLIC [id number] 06:36:00 Test Item Value Reference Range Interpretation Comments SODIUM (test code 133 MMOL/L 136-143 L = NA) POTASSIUM (test 3.9 MMOL/L 3.5-5.1 N code = K) CHLORIDE (test 99 MMOL/L 98-107 N code = CL) CARBON DIOXIDE 20 mmol/L 24-31 L (test code = CO2) GLUCOSE (test code 70 mg/dL 70-104 N = GLU) BLOOD UREA 6.6 MG/DL 7.0-21.0 L NITROGEN (test code = BUN) GLOMERULAR >=60 max >60 The estimated FILTRATION RATE estimate glomerular (test code = GFR) filtration rate is computed usingpatient ra ce, age (>18), sex, and serum creatinin e. If anyof the neede d data elements a re missing the Laboratory maite ot compute an estimation of t he glomerular filtration rate . CREATININE (test 0.7 mg/dL 0.8-1.5 L code = CREAT) CALCIUM (test code 8.7 mg/dL 8.8-10.2 L = CA) BASIC METABOLIC [id number] 09:22:00 Test Item Value Reference Range Interpretation Comments SODIUM (test code 142 MMOL/L 136-143 N = NA) POTASSIUM (test 4.7 MMOL/L 3.5-5.1 N code = K) CHLORIDE (test 103 MMOL/L 98-107 N code = CL) CARBON DIOXIDE 27 mmol/L 24-31 N (test code = CO2) GLUCOSE (test code 68 mg/dL 70-104 L = GLU) BLOOD UREA 11.8 MG/DL 7.0-21.0 N NITROGEN (test code = BUN) GLOMERULAR >=60 max >60 The estimated FILTRATION RATE estimate glomerular (test code = GFR) filtration rate is computed usingpatient ra ce, age (>18), sex, and serum creatinin e. If anyof the neede d data elements a re missing the Laboratory maite ot compute an estimation of t he glomerular filtration rate . CREATININE (test 0.9 mg/dL 0.8-1.5 N code = CREAT) CALCIUM (test code 9.3 mg/dL 8.8-10.2 = CA) LIVER FUNCTION [id number] 09:22:00 Test Item Value Reference Range Interpretation Comments TOTAL PROTEIN (test code = PROT) 6.1 g/dL 6.3-8.3 L ALBUMIN (test code = ALB) 4.2 G/DL 3.5-5.0 N BILIRUBIN TOTAL (test code = BILT) 0.5 mg/dL 0.2-1.0 N BILIRUBIN DIRECT (test code = <0.2 mg/dL 0.0-0.2 N BILD) SGOT/AST (test code = AST) 14 IU/L 10-34 N SGPT/ALT (test code = ALT) 18 U/L 10-44 N ALKALINE PHOSPHATASE (test code = 56 U/L 45-120 N ALKP) [id number] 09:22:00 Test Item Value Reference Range Interpretation Comments AMYLASE (test code = ADINA) 124 U/L 0-100 H [id number] 09:22:00 Test Item Value Reference Range Interpretation Comments LIPASE (test code = LIP) 157 U/L 0-190 N CBC W/AUTO [id number] 05:40:00 Test Item Value Reference Range Interpretation Comments WHITE BLOOD CELL (test code = 5.8 x10 3/uL 4.8-10.8 N WBC) RED BLOOD CELL (test code = 4.78 x10 6/uL 4.70-6.10 N RBC) HEMOGLOBIN (test code = HGB) 14.7 g/dL 14.5-20 N HEMATOCRIT (test code = HCT) 44.7 % 42.0-52.0 N MEAN CELL VOLUME (test code = 93.5 fL 80.0-94.0 N MCV) MEAN CELL HGB (test code = MCH) 30.8 pg 27-31 N MEAN CELL HGB CONCENTRATION 32.9 G/DL 33-36.5 L (test code = MCHC) RED CELL DISTRIBUTION WIDTH 12.1 % 12.9-16.9 L (test code = RDW) PLATELET COUNT (test code = 241 150-440 N PLT) MEAN PLATELET VOLUME (test code 10.6 fL 8.9-12.4 N = MPV) NEUTROPHIL % (test code = NT%) 48.6 % 42.2-75.2 N LYMPHOCYTE % (test code = LY%) 37.0 % 20.5-51.1 N MONOCYTE % (test code = MO%) 7.6 % 1.7-9.3 N EOSINOPHIL % (test code = EO%) 5.9 % 0.0-7.0 N BASOPHIL % (test code = BA%) 0.7 % 0-2.5 N NEUTROPHIL # (test code = NT#) 2.83 x10 3/uL 1.80-7.70 N LYMPHOCYTE # (test code = LY#) 2.15 x10 3/uL 1.00-4.80 N MONOCYTE # (test code = MO#) 0.44 x10 3/uL 0.00-0.80 N EOSINOPHIL # (test code = EO#) 0.34 x10 3/uL 0.00-0.45 N BASOPHIL # (test code = BA#) 0.04 x10 3/uL 0.0-0.20 N - CT ABD PELVIS [id number] 14:23:00Patient Name: MARIA VICTORIA WOOD Unit No: [id number] EXAMS: CPT CODE: [id number] CT ABD PELVIS W/CONT 19174 HISTORY: abdominal pain n/v. Bariatric surgery 2 weeks agoTECHNIQUE: Helical imaging of the abdomen and pelvis is performed with intravenous and oral contrast. Approximately 100 mL of intravenous contrast was administered. Sagittal and coronal reconstructions reviewed. CT DLP dose: 1865 mGy-cm. Iterative dose reduction technique was utilized. Location: W1 Comparison study: None FINDINGS: The images of the lung bases demonstrate no masses, effusions or infiltrates. Heart size is normal. There is no pericardial effusion. The liver is homogeneous, free of focal masses and dilated intrahepatic ducts. The gallbladder is absent; cholecystectomy clips are present.. The spleen is normal in size and contour. The pancreas is morphologically normal. No mass, pancreatic duct dilatation or peripancreatic edema is visible. The adrenal glands are normal in size and contour. Neither cystic nor solid renal masses are visible. No hydronephrosis is seen. No renal calculi or perinephric stranding. The urinary bladder is unremarkable. There are postsurgical changes of gastric sleeve surgery.The visualized small bowel is unremarkable without evidence of bowel thickening or obstruction. The colon is unremarkable. A normal appendix is seen. No retroperitoneallymphadenopathy is present. The aorta is of normal caliber. The IVC is patent. The portal vein is patent. No evidence of ascites. Abdominal wall is intact. No significant bone lesions. IMPRESSIONS: 1. There are changes of gastric sleeve surgery. 2. Normal appendix is seen. 3. Status post cholecystectomy. 4. No acute or neoplastic process is identified. Name: MARIA VICTORIA WOOD [facility] Phys: Rizwana Anthoyn MD [address] : 1985 Age: 33 Sex: [place] [address] Loc: P.ERS Exam Date: 03/23/2019 Status: REG ER PH: FAX: PAGE 1 Signed Report (JOE NUED) Patient Name: MARIA VICTORIA WOOD Unit No: [id number] EXAMS: CPT CODE: [id number] CT ABD PELVIS [id number] <Continued> at 1423 Reported and signed by: Cayetano Cornejo MD CC: Rizwana Maldonado MD Technologist: Chiqui Flynn CTDI: 23.15 DLP: 1565 Trscr Dt/Tm: 03/23/2019 (1423) by:[email or web address] Printed Date/Time: 03/23/2019 (8612) Name: MARIA VICTORIA WOOD [facility] Phys: Rizwana Anthony MD [address] : 1985 Age: 33 Sex: [place] [address] Loc: P.ERS Exam Date: 03/23/2019Status: REG ER PH: FAX: PAGE 2 Signed ReportUA RFLX MICR CULT IF [id number] 13:40:00 Test Item Value Reference Range Interpretation Comments UA COLOR (test code = COLU) YELLOW DISCRIPT YELLOW UA APPEARANCE (test code = CLEAR DISCRIPT CLEAR APPU) UA GLUCOSE DIPSTICK (test NEGATIVE mg/dL NEGATIVE code = DGLUU) UA BILIRUBIN DIPSTICK (test MODERATE NEGATIVE A code = BILU) UA KETONE DIPSTICK (test code >=80 mg/dL NEGATIVE A = KETU) UA SPECIFIC GRAVITY (test >=1.030 1.005-1.030 code = SGU) UA BLOOD DIPSTICK (test code NEGATIVE NEGATIVE = KRISTIAN) UA PH DIPSTICK (test code = 6.0 5.0-9.0 AICHA) UA PROTEIN DIPSTICK (test TRACE mg/dL NEGATIVE code = PROU) UA UROBILINOGEN DIPSTICK 0.2 mg/dL 0.2-1.0 (test code = URO) UA NITRITE DIPSTICK (test NEGATIVE NEGATIVE code = ANGELITA) UA LEUKOCYTE ESTERASE NEGATIVE NEGATIVE DIPSTICK (test code = LEUU) Indication for culture: Dysuria/FrequencyUA RFLX MICR CULT IF INDICATED 2019-03-23 13:33:00 Test Item Value Reference Range Interpretation Comments UA COLOR (test code = COLU) YELLOW DISCRIPT YELLOW UA APPEARANCE (test code = CLEAR DISCRIPT CLEAR APPU) UA GLUCOSE DIPSTICK (test NEGATIVE mg/dL NEGATIVE code = DGLUU) UA BILIRUBIN DIPSTICK (test MODERATE NEGATIVE A code = BILU) UA KETONE DIPSTICK (test code >=80 mg/dL NEGATIVE A = KETU) UA SPECIFIC GRAVITY (test >=1.030 1.005-1.030 code = SGU) UA BLOOD DIPSTICK (test code NEGATIVE NEGATIVE = KRISTIAN) UA PH DIPSTICK (test code = 6.0 5.0-9.0 AICHA) UA PROTEIN DIPSTICK (test TRACE mg/dL NEGATIVE code = PROU) UA UROBILINOGEN DIPSTICK 0.2 mg/dL 0.2-1.0 (test code = URO) UA NITRITE DIPSTICK (test NEGATIVE NEGATIVE code = ANGELITA) UA LEUKOCYTE ESTERASE NEGATIVE NEGATIVE DIPSTICK (test code = LEUU) UA WBC (test code = WBCU) #WBC/HPF 0-2 UA RBC (test code = RBCU) #RBC/HPF 0-2 UA BACTERIA (test code = /HPF NONE-TRACE BACU) UA SQUAMOUS CELLS (test code /LPF NONE-TRACE = SQU) Indication for culture: Dysuria/FrequencyCOMPREHENSIVE METABOLIC PANEL 2019-03-23 12:11:00 Test Item Value Reference Range Interpretation Comments SODIUM (test code = 139 MMOL/L 136-143 N NA) POTASSIUM (test 4.9 MMOL/L 3.5-5.1 N code = K) CHLORIDE (test code 96 MMOL/L 98-107 L = CL) CARBON DIOXIDE 25 mmol/L 24-31 N (test code = CO2) GLUCOSE (test code 77 mg/dL 70-104 N = GLU) BLOOD UREA NITROGEN 14.4 MG/DL 7.0-21.0 N (test code = BUN) GLOMERULAR >=60 max >60 The estimated FILTRATION RATE estimate glomerular (test code = GFR) filtration rate is computed usingpatient ra ce, age (>18), sex, and serum creatinin e. If anyof the ne eded data elements a re missing the Laboratory maite ot compute an estimation of t he glomerular filtration rate . CREATININE (test 0.9 mg/dL 0.8-1.5 N code = CREAT) TOTAL PROTEIN (test 7.4 g/dL 6.3-8.3 N code = PROT) ALBUMIN (test code 4.8 G/DL 3.5-5.0 N = ALB) CALCIUM (test code 10.5 mg/dL 8.8-10.2 H = CA) BILIRUBIN TOTAL 0.6 mg/dL 0.2-1.0 N (test code = BILT) SGOT/AST (test code 19 IU/L 10-34 N = AST) SGPT/ALT (test code 24 U/L 10-44 N = ALT) ALKALINE 63 U/L 45-120 N PHOSPHATASE (test code = ALKP) LIVER FUNCTION [id number] 11:09:00 Test Item Value Reference Range Interpretation Comments TOTAL PROTEIN (test code = PROT) 7.6 g/dL 6.3-8.3 N ALBUMIN (test code = ALB) 4.5 G/DL 3.5-5.0 N BILIRUBIN TOTAL (test code = BILT) 0.6 mg/dL 0.2-1.0 N BILIRUBIN DIRECT (test code = <0.2 mg/dL 0.0-0.2 N BILD) SGOT/AST (test code = AST) 18 IU/L 10-34 N SGPT/ALT (test code = ALT) 24 U/L 10-44 N ALKALINE PHOSPHATASE (test code = 63 U/L 45-120 N ALKP) [id number] 11:09:00 Test Item Value Reference Range Interpretation Comments LIPASE (test code = LIP) 300 U/L 0-190 H CBC W/AUTO [id number] 10:42:00 Test Item Value Reference Range Interpretation Comments WHITE BLOOD CELL (test code = 7.8 x10 3/uL 4.8-10.8 N WBC) RED BLOOD CELL (test code = 5.47 x10 6/uL 4.70-6.10 N RBC) HEMOGLOBIN (test code = HGB) 17.2 g/dL 14.5-20 N HEMATOCRIT (test code = HCT) 49.3 % 42.0-52.0 N MEAN CELL VOLUME (test code = 90.1 fL 80.0-94.0 N MCV) MEAN CELL HGB (test code = MCH) 31.4 pg 27-31 H MEAN CELL HGB CONCENTRATION 34.9 G/DL 33-36.5 N (test code = MCHC) RED CELL DISTRIBUTION WIDTH 12.3 % 12.9-16.9 L (test code = RDW) PLATELET COUNT (test code = 338 150-440 N PLT) MEAN PLATELET VOLUME (test code 10.1 fL 8.9-12.4 N = MPV) NEUTROPHIL % (test code = NT%) 57.5 % 42.2-75.2 N LYMPHOCYTE % (test code = LY%) 30.9 % 20.5-51.1 N MONOCYTE % (test code = MO%) 7.2 % 1.7-9.3 N EOSINOPHIL % (test code = EO%) 3.6 % 0.0-7.0 N BASOPHIL % (test code = BA%) 0.4 % 0-2.5 N NEUTROPHIL # (test code = NT#) 4.50 x10 3/uL 1.80-7.70 N LYMPHOCYTE # (test code = LY#) 2.41 x10 3/uL 1.00-4.80 N MONOCYTE # (test code = MO#) 0.56 x10 3/uL 0.00-0.80 N EOSINOPHIL # (test code = EO#) 0.28 x10 3/uL 0.00-0.45 N BASOPHIL # (test code = BA#) 0.03 x10 3/uL 0.0-0.20 N [U] XRAY KNEE 4 OR MORE VWS BILATERAL [id number] 11:47:00Images acquired, not reported on this accession number.[facility]
[2021-05-24] MEDS ORDERED: METOCLOPRAMIDE 10 MG/2mL INJ ONE (15:39)
[2021-05-24] MEDS ORDERED: NA CHLORIDE 0.9% 1,000 ML ONE (15:39)
[2021-05-24] MEDS ORDERED: DIPHENHYDRAMINE 50 MG/ML VIAL ONE (15:39)
[2021-05-24 16:23] LABS: Absolute Lymphocytes (CBC) 1.3 K/uL (0.7-4.9); Hematocrit 48.8 % (39.6-49.0); Lymphocytes % 13.9 % (15.3-44.8); MPV 7.9 fL (7.6-11.3); RBC Red Blood Cell Count 5.26 M/uL (4.33-5.43)
[2021-05-24 16:25] LABS: Protime INR 0.99
--- NOTE | 2021-05-24 16:27 | RAD REPORT ---
EXAM DESCRIPTION: CT - Head Brain Wo Cont - 05/24/2021 4:16 pm CLINICAL HISTORY: HEADACHE COMPARISON: No comparisons TECHNIQUE: All CT scans are performed using dose optimization technique as appropriate and may inclu de automated exposure control or mA/KV adjustment according to patient size. FINDINGS: No intracranial hemorrhage, hydrocephalus or extra-axial fluid collection.No areas of brai n edema or evidence of midline shift. The paranasal sinuses and mastoids are clear. The calvarium is intact. IMPRESSION: No acute intracranial abnormality.
[2021-05-24 16:38] LABS: Albumin 3.9 g/dL (3.4-5.0); Bilirubin Total 0.5 mg/dL (0.2-1.0); Potassium 3.9 mmol/L (3.5-5.1); Protein, Total 7.5 g/dL (6.4-8.2)
--- NOTE | 2021-05-24 17:35 | RAD REPORT ---
EXAM DESCRIPTION: MRI - Brain Wo Cont - 05/24/2021 5:07 pm CLINICAL HISTORY: headache, left eye blurred vision COMPARISON: Head Brain Wo Cont dated 05/24/2021 TECHNIQUE: Sagittal T1-weighted images were obtained along with PD/heavily T2-weighted and T2-FLAIR images. Axial DWI and ADC mapping sequences were also obtained along with coronal heavily T2-weighted images were obtained. FINDINGS: No intracranial hemorrhage, mass or acute infarction. There is no edema or shift of midlin e structures. No extra-axial fluid collections. Signal voids are seen as a normal finding in the leon r intracranial vessels. No significant white matter disease. Mastoid air cells and paranasal sinuses are clear. IMPRESSION: No acute intracranial abnormality. Specifically, no evidence of acute infarct.
--- NOTE | 2021-05-24 18:04 | ER ---
Nurse's Notes [facility] Name: Terrell Dos Santos Age: 36 yrs Sex: Male : 1985 Arrival Date: 05/24/2021 Time: 14:44 Bed 6 Private MD: Diagnosis: Postconcussional syndrome Presentation: 05/24 14:48 Chief complaint: Patient states: was sent to ED from [place] [facility]; states fell on vg1 and hit left side of head with LOC; states has headache on same side with blurred vision to Left eye, dizziness and nausea. Coronavirus screen: Vaccine status: Patient reports receiving the 2nd dose of the covid vaccine. Client denies travel out of the [place] in the last 14 days. Ebola Screen: Patient negative for fever greater than or equal to 101.5 degrees Fahrenheit, and additional compatible Ebola Virus Disease symptoms. Initial Sepsis Screen: Does the patient meet any 2 criteria? No. Patient's initial sepsis screen is negative. Does the patient have a suspected source of infection? No. Patient's initial sepsis screen is negative. Risk Assessment: Do you want to hurt yourself or someone else? Patient reports no desire to harm self or others. Onset of symptoms was May 22, 2021. 14:48 Method Of Arrival: Ambulatory vg1 14:48 Acuity: GAUTAM 3 vg1 Triage Assessment: 14:50 Headache History: The patient has had previous headaches and this one is more severe vg1 than previous episodes. General: Appears uncomfortable, Behavior is calm, cooperative. Pain: Complains of pain in head Pain currently is 9 out of 10 on a pain scale. Pain began 2-3 days ago. Also complains of nausea. Neuro: Level of Consciousness is awake, alert, obeys commands, Oriented to person, place, time, situation, Reports blurred vision dizziness, headache. Historical: - Allergies: 14:50 Celebrex; vg1 - Home Meds: 14:50 Ambien Oral [Active]; gabapentin Oral [Active]; sertraline Oral [Active]; vg1 - PMHx: 14:50 PTSD; vg1 - PSHx: 14:50 Cholecystectomy; gastric sleeve; left knee; vg1 - Immunization history:: Client reports receiving the 2nd dose of the Covid vaccine. - Social history:: Smoking status: Patient/guardian denies using tobacco. Screenin:05 Abuse screen: Denies threats or abuse. Denies injuries from another. Nutritional jg9 screening: No deficits noted. Tuberculosis screening: No symptoms or risk factors identified. Fall Risk Fall in past 12 months (25 points). Assessment: 15:30 Pain: Complains of pain in head-left sided Pain currently is 10 out of 10 on a pain jg9 scale. Neuro: Reports blurred vision nausea dizziness. Vital Signs: 14:48 BP 118 / 87; Pulse 86; Resp 16; Temp 98.0; Pulse Ox 99% ; Weight 107.5 kg; Height 6 ft. vg1 3 in. (190.50 cm); Pain 9/10; 15:35 BP 135 / 80; Pulse 94; Resp 14 S; Pulse Ox 97% on R/A; jg9 15:45 BP 117 / 82; Pulse 80; Resp 17; Pulse Ox 99% on R/A; jg9 18:04 BP 107 / 57; Pulse 84; Resp 18; Pulse Ox 100% on R/A; ic1 14:48 Body Mass Index 29.62 (107.50 kg, 190.50 cm) vg1 ED Course: 14:44 Patient arrived in ED. as 14:50 Triage completed. vg1 14:50 Arm band placed on. vg1 15:04 Anders Wiley PA is PHCP. [facility] 15:04 Orion Reese MD is Attending Physician. jmm 15:30 Deb Frederick, KOLE is Primary Nurse. jg9 15:30 Inserted saline lock: 20 gauge in right antecubital area, using aseptic technique. jg9 Blood collected. 16:07 Patient has correct armband on for positive identification. Bed in low position. Call jg9 light in reach. Warm blanket given. 16:16 CT Head Brain wo Cont In Process Unspecified. EDMS 17:06 MRI - Brain Wo Cont In Process Unspecified. EDMS 17:30 No apparent distress. Awaiting disposition. jg9 17:30 Resting quietly. jg9 18:12 No provider procedures requiring assistance completed. jg9 18:12 IV discontinued. jg9 Administered Medications: 18:14 Discontinued: NS 0.9% 1000 ml IV at 1 bolus Per protocol; 1000 mL bolus jg9 15:35 Drug: NS 0.9% 1000 ml Route: IV; Rate: 1 bolus; Site: right antecubital; jg9 18:14 Follow up: IV Status: Completed infusion; IV Intake: 500ml jg9 15:36 Drug: Reglan (metoCLOPramide) 20 mg Route: IVP; Site: right antecubital; jg9 16:40 Follow up: Response: No adverse reaction; Pain is decreased jg9 15:40 Drug: diphenhydrAMINE 12.5 mg Route: IVP; Site: right antecubital; jg9 16:40 Follow up: Response: No adverse reaction; Pain is decreased jg9 Intake: 18:14 IV: 500ml; Total: 500ml. jg9 Outcome: 18:03 Discharge ordered by . jose 18:12 Discharged to home ambulatory. jg9 18:12 Condition: good 18:12 Discharge instructions given to patient, Instructed on discharge instructions, follow up and referral plans. Demonstrated understanding of instructions, follow-up care. 18:14 Patient left the ED. jg9 Signatures: Dispatcher [employer] EDMS Anders Wiley PA PA jmm Martinez, Amelia as Garcia, Victoria RN RN vg1 Deb Frederick RN RN jg9 Taya Jones RN RN ic1
--- NOTE | 2021-05-24 18:04 | EDPHYS ---
Physician Documentation [facility] Name: Terrell Dos Santos Age: 36 yrs Sex: Male : 1985 Arrival Date: 05/24/2021 Time: 14:44 Bed 6 Private MD: YARIEL Physician Orion Reese HPI: 05/24 15:28 This 36 yrs old Male presents to ER via Ambulatory with complaints of Headache. jmm 15:28 The patient complains of pain to the forehead and left eye. Onset: The symptoms/episode jmm began/occurred gradually, 2 week(s) ago. 15:35 Associated signs and symptoms: Pertinent positives: blurred vision. This is a 36 year jmm old male with a history of ptsd that presents to the ED with complaints of left frontal headache and left eye twitching and blurred vision. Patient states he suffered a head injury approx 2 weeks ago with a negative initial ct. Patient states that since then he has had these symptoms. Denies unilateral weakness. Denies history of similar headache before the fall. Historical: - Allergies: 14:50 Celebrex; vg1 - Home Meds: 14:50 Ambien Oral [Active]; gabapentin Oral [Active]; sertraline Oral [Active]; vg1 - PMHx: 14:50 PTSD; vg1 - PSHx: 14:50 Cholecystectomy; gastric sleeve; left knee; vg1 - Immunization history:: Client reports receiving the 2nd dose of the Covid vaccine. - Social history:: Smoking status: Patient/guardian denies using tobacco. ROS: 15:35 Constitutional: Negative for fever, chills, and weight loss, Cardiovascular: Negative jm for chest pain, palpitations, and edema, Respiratory: Negative for shortness of breath, cough, wheezing, and pleuritic chest pain. 15:35 Neuro: Positive for headache, visual changes. 15:35 All other systems are negative. Exam: 15:35 Head/Face: atraumatic. Eyes: EOMI, no conjunctival erythema appreciated ENT: Moist jmm Mucus Membranes Neck: Trachea midline, Supple Chest/axilla: Normal chest wall appearance and motion. Cardiovascular: Regular rate and rhythm. No edema appreciated Respiratory: Normal respirations, no respiratory distress appreciated Abdomen/GI: Non distended, soft Back: Normal ROM Skin: General appearance color normal 15:35 Constitutional: The patient appears alert, awake, anxious. 15:35 Musculoskeletal/extremity: ROM: intact in all extremities. 15:35 Skin: Appearance: Color: normal in color. 15:35 Neuro: Orientation: is normal, Mentation: is normal, Memory: is normal. 15:35 Psych: Behavior/mood is pleasant, cooperative. Vital Signs: 14:48 BP 118 / 87; Pulse 86; Resp 16; Temp 98.0; Pulse Ox 99% ; Weight 107.5 kg; Height 6 ft. vg1 3 in. (190.50 cm); Pain 9/10; 15:35 BP 135 / 80; Pulse 94; Resp 14 S; Pulse Ox 97% on R/A; jg9 15:45 BP 117 / 82; Pulse 80; Resp 17; Pulse Ox 99% on R/A; jg9 18:04 BP 107 / 57; Pulse 84; Resp 18; Pulse Ox 100% on R/A; ic1 14:48 Body Mass Index 29.62 (107.50 kg, 190.50 cm) vg1 MDM: 15:06 Patient medically screened. kevin 17:58 Data reviewed: vital signs, nurses notes. Counseling: I had a detailed discussion with jose the patient and/or guardian regarding: the historical points, exam findings, and any diagnostic results supporting the discharge/admit diagnosis, lab results, radiology results, the need for outpatient follow up, to return to the emergency department if symptoms worsen or persist or if there are any questions or concerns that arise at home. ED course: Imaging studies are negative. Patient states symptoms have improved with iv reglan. I do not suspect cva/sah at this time. Patient advised to follow up with neuro for further evaluation. patient understood and agrees with the plan of care. . 05/24 15:28 Order name: CBC with Diff; Complete Time: 16:57 [facility] 05/24 15:28 Order name: CMP; Complete Time: 16:42 [facility] 05/24 15:28 Order name: CT Head Brain wo Cont; Complete Time: 16:37 [facility] 05/24 15:28 Order name: MRI - Brain Wo Cont; Complete Time: 17:36 [facility] 05/24 15:28 Order name: PT-INR; Complete Time: 16:37 [facility] 05/24 15:28 Order name: Saline Lock; Complete Time: 16:07 [facility] Administered Medications: 18:14 Discontinued: NS 0.9% 1000 ml IV at 1 bolus Per protocol; 1000 mL bolus jg9 15:35 Drug: NS 0.9% 1000 ml Route: IV; Rate: 1 bolus; Site: right antecubital; jg9 18:14 Follow up: IV Status: Completed infusion; IV Intake: 500ml jg9 15:36 Drug: Reglan (metoCLOPramide) 20 mg Route: IVP; Site: right antecubital; jg9 16:40 Follow up: Response: No adverse reaction; Pain is decreased jg9 15:40 Drug: diphenhydrAMINE 12.5 mg Route: IVP; Site: right antecubital; jg9 16:40 Follow up: Response: No adverse reaction; Pain is decreased jg9 Disposition: 05/25 08:26 Co-signature as Attending Physician, Orion Reese MD I agree with the assessment and kevin plan of care. Disposition Summary: 05/24/21 18:03 Discharge Ordered Location: Home [facility] Condition: Stable [facility] Diagnosis - Postconcussional syndrome [facility] Followup: [facility] - With: Private Physician - When: 2 - 3 days - Reason: Recheck today's complaints, Continuance of care, Re-evaluation by your physician Discharge Instructions: - Discharge Summary Sheet [facility] - Post-Concussion Syndrome jmm - Post-Concussion Syndrome, [id number] [facility] Forms: - Medication Reconciliation Form [facility] - Thank You Letter [facility] - Antibiotic Education [facility] - Prescription Opioid Use [facility] Signatures: Dispatcher [employer] Orion Cabral MD MD cha Mickail, Joel, PA PA jmm Garcia, Victoria, RN RN vg1 Deb Frederick RN RN jg9
[2021-05-24 18:28] VITALS: TEMP 98
[2021-05-24 18:31] VITALS: BP 107/57; O2SAT 100
== END 2021-05-24 18:14 | disposition home or self-care (01) ==
LOC: ER 14:42
DX: F07.81 Postconcussional syndrome (principal); F43.10 Post-traumatic stress disorder, unspecified; Z88.8 Allergy status to other drugs, medicaments and biological substances
CPT/HCPCS: 96361; 85025; 36415; 85610; 80053; 70450; 70551; 96375; 96374; 99284; J2765; J1200; J7030

== ENCOUNTER 2021-05-30 17:02 | Emergency (ER) | payer BC, OTHER ==
--- OUTSIDE RECORDS SUMMARY | 2021-05-30 17:07 | XMS REPORT | Clinical Summary ---
:1985 Author Organization [facility] MD [facility] Address [address] [place] [address] Care Team Providers Name Role Phone Layton [...] Covid Jordana, SARS-CoV-2 MD Arnie vaccination after 05/30/2020 Surgical History Surgery Date Site/Laterality Comments CHOLECYSTECTOMY 08/13/2018 - laproscopic 09/12/2018 ANTERIOR CRUCIATE LIGAMENT 04/15/2014 - Left REPAIR 04/14/2015 MEDIAL COLLATERAL LIGAMENT 04/15/2016 - Left AND LATERAL COLLATERAL 04/14/2017 LIGAMENT REPAIR, KNEE EGD 01/14/2020 - 02/13/2020 COLONOSCOPY 04/15/2019 - 05/15/2019 STOMACH SURGERY FL BIOPSY OF 10/31/2020 Anus/N/A Procedure: NEEDL E BIOPSY PROSTATE,NEEDLE/PUNCH OF PROSTAT E(IN OR); Surgeon: Brandon Huerta MD; Loca tion: [facility]; Servic e: UROLOGY FL CHG ECHO,TRANSRECTAL 10/31/2020 Anus/N/A Procedur e: ULTRASOUND, TRANSRECTAL; Jimenez rgeon: Brandon mancia MD; Location: [facility]; Service: UROLOGY FL CHG 3D RENDERING 10/31/2020 Anus/N/A Procedure: 3 [...] are i n the results section. after 05/30/2020 Results (ABNORMAL) POC Glucose Screen (10/31/2020 8:19 [...] Sample Type Capillary POC [facility]: [facility] Clinical Lab, [address] [facility], [place] [address]; Correctional Supply Supervisor: Anahi Velazco MD Specimen Blood Performing Organization Address City/State/ZIP Code Phon e Number POC [facility] Pathology Biopsy Interpretation (10/31/2020 12:34 PM CDT) Pathologist Sig nature Submitted Clinical Prostate nodule [facility] History [N40.2] Diagnosis A: Prostate gland, 1. left lateral base: [facility] Electronically signed Fibromuscular [...] no tumor present. PXT/FAS1 Gross Description A: [facility] Prostate gland, 1. [...] in L1. JX Disclaimer "Some tests reported [facility] here may have been developed and performance characteristics determined by [facility] Pathology and Laboratory Medicine. These tests have [...] Organization Address City/State/ZIP Code Phon e Number [facility] [place] [address] [address] COVID-19 (SARS-CoV-2) PCR-Asymptomatic (10/28/2020 9:39 AM CDT) COVID19 (SARS Not Detected Not Detected [facility] CoV-2) Result Comment: CANCER CENTER This test [...] verified by the Microbiology Laboratory at [facility], CLIA Accreditation #: [id number] and CAP Accreditation #: [id number]. Results must be interpreted within the context [...] nicki ting if clinically indicated. COVID19 SARS BATTERBOARD SETTER Swab [facility] COVID19 SARS Pre-OR Procedure [facility] Indication CANCER CENTER Specimen Nasopharyngeal Swab Performing Organization Address [facility] Phon e Number [facility] CANCER Unless otherwise noted, [address] all lab tests performed by: Division of Pathology and Laboratory Medicine [address] [place] [address] .Serum Creatinine (10/28/2020 9:20 AM CDT) Pathologist [facility] Creatinine 0.87Comment: Testing 0.67 - 1.17 mg/dL [facility] Performed at [facility] [employer]ician [facility], [facility], [address], [place] [id number] Specimen Blood Performing Organization Address [facility] Phon e Number [facility] [address] [facility] [place] [address] [address] (ABNORMAL) .CBC (10/28/2020 9:20 AM CDT) Pathologist [facility] WBC 5.1 4.0 - 11.0 K/uL [facility] RBC 5.17 4.50 - 6.00 [facility] M/uL Hgb 16.2Comment: As part 14.0 - 18.0 [facility] of CBC or as an gm/dL individual orderable testing performed at [facility] [employer] [facility], [address] [place] [address], [address], [place] [address] Hct 47.7Comment: As part 40.0 - 54.0 % [facility] of CBC or as an individual orderable testing performed at [facility], [address] [place] [address], [address], [place] [address] MCV 92 82 - 98 fL [facility] MCH 31.3 (H) 27.0 - 31.0 pg [facility] MCHC 34.0 31.0 - 36.0 [facility] gm/dL RDW-SD 41.0 35.1 - 46.3 fL [facility] RDW-CV 12.0 12.0 - 15.5 % [facility] Platelet count 217Comment: As part 140 - 440 K/uL [facility] of CBC or as an individual orderable testing performed at [facility], [address] [place] [address], [address], [place] [address] MPV 9.0 4.0 - 10.4 fL [facility] INRBC 0.0 <=0.0 % [facility] Comment: The INRBC (instrument NRBC) value reflects the enumera tion of nucleated red blood cells contained in a 200uL samp le of whole blood analyzed by the instrument. This value may differ from the NRBC value reported in a manual differ ential, which is based on a 100 cell differential. As part of CBC testing performed at [place] [id number] [facility], [address], [place] [address] Specimen Blood Performing Organization Address City/State/ZIP Code Phon e Number [facility] [address] [place] [address]. [place] [address] [address] Clot Expiration Date (10/28/2020 9:20 AM CDT) Pathologist Sig kezia T & S Expiration 10/31/2020 [facility]ENTER Specimen Blood Performing Organization Address City/State/ZIP Code Phon e Number [facility] CANCER Unless otherwise noted, [place] [id number] CENTER all lab tests performed by: Division of Pathology and Laboratory Medicine [address] [place] [address] Dolly Glomerular Filtration Rate (10/28/2020 9:20 AM CDT) Pathologist Javad mast eGFR-AA 128 >=60 mL/min/1.73 [facility] Comment: sq. m Normal eGFR >= 60 [...] 5 Kidney failure <15 Testing Performed at [facility] [employer] Bldg, [address] [place] [address], [address], [place] [address] eGFR-FIORELLA 111 >=60 mL/min/1.73 [facility] Comment: sq. m Normal eGFR >= 60 [...] 5 Kidney failure <15 Testing Performed at [facility] [employer] [facility], [facility], [address], [place] [address] Specimen Blood Performing Organization Address City/State/ZIP Code Phon e Number [address] [place] [address] [address] Fractionated Bilirubin (10/28/2020 9:20 AM CDT) Bili Total 0.5 <=1.2 mg/dL [facility] Comment: Indocyanine Green (ICG) may cause falsely elevated bilirubin results. Total and direct bilirubin must not be measured from samples containing indocyanine green. False elevation of total chiquita irubin can be seen in patients with IgG concentrations above 28 g/L. Testing Performed at [facility] [employer] [facility], [address] [facility], [address], [place] [address] Bili Direct <0.2 <=0.3 mg/dL [facility] Comment: Indocyanine Green (ICG) may cause falsely elevated bilirubin results. Total and direct bilirubin must not be measured from samples containing indocyanine green. Testing Performed at [facility] [employer] [facility], [address] [facility], [address], [place] [address] Bili Indirect See Note 0.0 - 0.9 [facility] Comment: mg/dL Unable to calculate Indirect Bilirubin result due to some parameters are outside reportable range Testing Performed at [facility] [employer] [facility], [address] [facility], [address], [place] [address] Specimen Blood Performing Organization Address [facility] Phon e Number [facility] [address] [facility] [place] [address] [address] TMP Interpretation Antibody Screen Negative (10/28/2020 9:20 AM CDT) TMP Auto Neg ABSC At the present time, patien t plasma shows no evidence of RBC alloantibodies. [facility] Interp Comment: CANCER CENTER TOÑA CISNEROS, Dictated by: TOÑA CISNEROS, Dictated Date/Time: 10.29.19 15:58 PM CDT Transcribed Date/Time: 10.28.2020 15:58 PM CDT Electronically Signed By: TOÑA CISNEROS, on 10.13 15:58 PM Specimen Blood Performing Organization Address City/[facility] Phon e Number [facility] CANCER Unless otherwise noted, [place] [address] CENTER all lab tests performed by: Division of Pathology and Laboratory Medicine [address] [place] [address] Dolly ABOR (10/28/2020 9:20 AM CDT) Pathologist Javad mast ABORh. O POS [facility]ENTER Specimen Blood Performing Organization Address City/[facility] Phon e Number [facility] CANCER Unless otherwise noted, [place] [id number] CENTER all lab tests performed by: Division of Pathology and Laboratory Medicine [address] [place] (ABNORMAL) Differential (10/28/2020 9:20 AM CDT) Neutrophil % 54.0Comment: As part 42.0 - 66.0 % [facility] of Differential performed at [facility] [employer] [facility], [address] [place] [address], [address], [place] [address] Lymphocyte % 34.4 24.0 - 44.0 % [facility] Monocyte % 8.9 (H) 2.0 - 7.0 % [facility] Eosinophil % 1.9 1.0 - 4.0 % [facility] Basophil % 0.4 0.0 - 1.0 % [facility] IGRE % 0.4 0.0 - 0.4 % [facility] Comment: IGRE % count includes Metamyelocytes, Myelocytes, and Promyelocytes. As part of Differential perf ormed at [facility] [employer] [facility], [address] [facility], [address], [place] [address] Neutrophil Abs 2.77 1.70 - 7.30 [facility] [...] Organization Address City/State/ZIP Code Phon e Number [facility] [address] [facility] [place] [address] [address] Antibody Screen (10/28/2020 9:20 AM CDT) Pathologist Sig nature ABSC. Negative ABSC [facility]ER CENTE R Specimen Blood Performing Organization Address City/State/ZIP Code Phon e Number [facility] CANCER Unless otherwise noted, [place] [id number] [place] all lab tests performed by: Division of Pathology and Laboratory Medicine [address] [place] BUN (10/28/2020 9:20 AM CDT) Pathologist Sig nature BUN 12Comment: Testing 6 - 23 mg/dL [facility] Performed at [facility] [employer] [facility], [address] [facility] [address], [place] [address] Specimen Blood Performing Organization Address [facility]/ZIP Code Phon e Number [facility] [address] [place] [address] [address] ALT (10/28/2020 9:20 AM CDT) Pathologist [facility] ALT 30Comment: Testing Performed <=41 U/L [facility] at [facility] [employer] [facility], [address], [address], [place] [address] Specimen Blood Performing Organization Address [facility]/ZIP [facility] Phon e Number [facility] [address] [facility] [place] [address] [address] Aspartate Aminotransferase (10/28/2020 9:20 AM CDT) Pathologist [facility] AST 21Comment: Testing Performed <=40 U/L [facility] [employer] [facility], [address] [facility] [address], [place] [address] Specimen Blood Performing Organization Address [facility] Phon e Number [facility] [address] [facility] [place] [address] [address] Total Protein (10/28/2020 9:20 AM CDT) Pathologist [facility] Total Protein 7.1Comment: Testing 6.4 - 8.3 g/dL [facility] Performed at [facility] [employer] [facility], [address], [address], [place] [address] Specimen Blood Performing Organization Address [facility] Phon e Number [facility] [address] [facility] [place] [address] [address] Alkaline Phosphatase (10/28/2020 9:20 AM CDT) Pathologist Sig [facility] Alk Phos 55Comment: Testing 40 - 129 U/L [facility] Performed at [facility] [employer] [facility], [address], [address], [place] [address] Specimen Blood Performing Organization Address City/[facility]/ZIP Code Phon e Number [facility] [address] [facility] [address] [address] [place] [address] [address] Hemoglobin A1c (10/28/2020 9:20 AM CDT) Pathologist Sig nature A1C 5.2 4.3 - 5.6 % [facility] Comment: [facility] CENTER HbA1c values >=6.5% are diagnostic of diabetes mellitu s. Diagnosis should be confirmed by repeat testing. Therapeutic Action suggested: >8.0% HbA1c; Goal of therapy: <7.0% HbA1c Specimen Blood Performing Organization Address [facility] Phon e Number [facility] CANCER Unless otherwise noted, [place] [address] CENTER all lab tests performed by: Division of Pathology and Laboratory Medicine [address] [facility] Glucose Level (10/28/2020 9:20 AM CDT) Pathologist Sig nature Glucose Level 88 70 - 99 mg/dL [facility] Comment: Effective 11/09/15, the gluco se reference intervals have been updated based on [place] [employer] guidelines (Standards of Medical Care in Diabetes 2016. Diabetes Care 2016; 39: S13-S22). Fasting blood glucose: Normal: 70-99 mg/dL Impaired fasting glucose (in creased risk for diabetes or pre-diabetes): 100- 125 mg/dL Diabetes mellitus: >/=126 mg/dL Random blood glucose: Normal: 70-199 mg/dL Note: Random glucose >100 mg/dL is assoc iated with increased risk for diabetes Testing Performed at [facility] [employer] [facility], [address] [place] [address], [address], [place] [address] Specimen Blood Performing Organization Address [facility] Phon e Number [facility] [address] [place] [address]. [place] [address] [address] Calcium Level (10/28/2020 9:20 AM CDT) Pathologist Sig [facility] Calcium Lvl 9.7Comment: Testing 8.4 - 10.2 mg/dL [facility] Performed at [facility] [employer] [facility], [address] [facility], [address], [place] [address] Specimen Blood Performing Organization Address [facility] Phon e Number [facility] [address] [facility] [place] [address] [address] Albumin Level (10/28/2020 9:20 AM CDT) Pathologist Sig nature Albumin Lvl 4.6Comment: Testing 3.5 - 5.2 gm/dL [facility] Performed at [facility] [employer] [facility], [address], [address], [place] [address] Specimen Blood Performing Organization Address City/State/ZIP Code Phon e Number [facility] [address] [facility] [place] [address] [address] (ABNORMAL) Electrolyte Panel (10/28/2020 9:20 AM CDT) Pathologist Sig kezia Sodium Lvl 139Comment: Testing 136 - 145 mEq/L [facility] Performed at [facility] [employer] [facility], [address], [place] [address] Potassium Lvl 4.3Comment: Testing 3.5 - 5.1 mEq/L [facility] Performed at [facility] [employer] [facility], [address], [place] [address] Chloride 101Comment: Testing 98 - 107 mEq/L [facility] Performed at [facility] [employer] [facility], [address], [address], [place] [address] CO2 30 (H)Comment: 22 - 29 mEq/L [facility] Testing Performed at [facility] [employer] [facility], [address], [place] [address] Anion Gap 8Comment: Testing 4 - 14 mEq/L [facility] Performed at [facility] [employer] [facility], [address], [address], [place] [address] Specimen Blood Performing Organization Address [facility]/ZIP Code Phon e Number [facility] [address] [place] [address] [address] Confirm ABORh (10/28/2020 9:17 AM CDT) Pathologist Sig nature ABORh Confirm. O POS [facility] CANCER [facility] Specimen Blood Performing Organization Address City/State/ZIP Code Phon e Number [facility] CANCER Unless otherwise noted, [address] all lab tests performed by: Division of Pathology and Laboratory Medicine Vignesh Puentes Urinalysis (10/28/2020 9:11 AM CDT) UA Color Yellow Straw-Yellow [facility] UA Appear Clear Clear [facility] UA Glucose NEG NEG mg/dL [facility] UA Bili NEG NEG [facility] UA Ketones NEG NEG mg/dL [facility] UA Spec Grav 1.025 1.003 - 1.035 [facility] UA Blood NEG NEG [facility] UA pH 7.0 5.0 - 9.0 [facility] UA Protein NEG NEG mg/dL [facility] UA Urobilinogen NEG NEG [facility] UA Nitrite NEG NEG [facility] UA Leuk Est NEG NEG [facility] UA Comment See CommentComment: No [facility] microscopic exam CANCER CENTER performed, physiochemical findings are negative Specimen Urine Performing Organization Address City/State/ZIP Code Phon e Number [facility] CANCER Unless otherwise noted, [place] [address] [place] all lab tests performed by: Division of Pathology and Laboratory Medicine [facility] [place] MRI Multi Reconstruction On Independent Workstation (10/19/2020 2:05 PM CDT) Specimen Impressions [id number] - 11/21/2020 3:43 PM CDT Three-D reformatted post processing MR images of the prostate for a fusion biopsy Narrative [id number] - 11/21/2020 3:43 PM CDT FULL RESULT: [...] for a fusion biopsy Performing Organization Address [facility] Phon e Number [id number] PSA (10/07/2020 12:44 PM CDT) PSA 1.2 0.0 - 4.0 ng/mL [facility] Comment: Results greater than 4519 ng /mL may not be reliable due to matrix effect with extended dilution as it exceeds the electronic console display operator's recommended limit. Caution should be exercised when interpreting such erich ues and done in conjunction with clinical context. Testing Performed at [facility] [employer] [facility], [address] [place] [address], [address], [place] [address] PSA Indication Diagnostic [facility] Specimen Blood Performing Organization Address [facility] Phon e Number [facility] [address] [place] [address]. [place] [address] [address] after 05/30/2020 Insurance Payer Benefit Plan / Subscriber ID Effective Dates Phone Addre ss Type Group [employer] PPO POS [id number] 2017-Maxine [phone] [address] PPO BLUE SHIELD OUT OF STATE t 9 [id number] [place] [address] Advance Directives Code Status Date Activated Date Inactivated Comments Full Code 10/31/2020 6:43 PM 11/01/2020 6:18 PM Care Teams Tax Appraiser Relationship Specialty Start Date End Date Brandon Huerta, PCP - General Urology 01/25/20 [address] [place] [address] Alvaro Camara MD PCP - External Follow Up A Gastroenterology 02/05/20 [address] [place] [address]
--- OUTSIDE RECORDS SUMMARY | 2021-05-30 17:10 | XMS REPORT | Continuity of Care Document ---
:1985 Author Organization [facility] [place] t Address [address] [place] [address] Care Team Providers Name Role Phone [phone] Primary Care Physician Unavailable SYSTEM, NOT IN Attending Clinician Unavailable Philly Villegas Attending Clinician Unavailable VERONICA Attending Clinician Unavailable Ebrahim WOOL HANDLER Attending Clinician EBRAHIM Attending Clinician Unavailable Nurse, [facility] Attending Clinician Unavailable Sree FARNCE Attending Clinician Attending Clinician Unavailable Singer NEWMAN Attending Clinician SREE Attending Clinician Unavailable Surinder PETTY Attending Clinician Nurse, Pob Immunization Attending Clinician Unavailable Beto Berrios DO Attending Clinician BETO BERRIOS Attending Clinician Unavailable UNKNOWN Attending Clinician Unavailable Tish Hoyos Attending Clinician Clarisse Huerta MD Attending Clinician CLARISSE HUERTA Attending Clinician Unavailable Jayne PETTY Attending Clinician Vamsi PETTY Attending Clinician Jalen Alonso CRNA Attending Clinician Unavailable Mumtaz SHARIF Attending Clinician Unavailable Tish Fleming RN Attending Clinician Unavailable SÁNCHEZ Attending Clinician Unavailable Dillon LEMON Attending Clinician Unavailable Antonia PETTY Attending Clinician Britany SCHOFIELD Attending Clinician Unavailable Jordana PETTY Attending Clinician DOC Attending Clinician Unavailable Tish MONAHAN Attending Clinician Unavailable LULY Attending Clinician Unavailable RICKY Attending Clinician Unavailable MARYBETH HERNANDES Attending Clinician Unavailable Deloris POPE Attending Clinician Unavailable Dimas CLEMENT Attending Clinician Unavailable CLEMENCIA Gudino Attending Clinician Unavailable EUSEBIO Attending Clinician Unavailable Philly Villegas Admitting Clinician Unavailable Admitting Clinician Unavailable CLARISSE HUERTA Admitting Clinician Unavailable DOC Admitting Clinician Unavailable Deloris POPE Admitting Clinician Unavailable CLEMENT, Dimas Admitting Clinician Unavailable CLEMENCIA Gudino Admitting Clinician Unavailable Payers Payer Name Policy Type Policy Number Effective Date Expiration Date S ource [employer] - [id number] 2016 OUT OF STATE 00:00:00 [facility] [id number] 2020 00:00:00 BLUE CROSS BLUE [id number] 2017 MD Artemio campos [employer]IELDBCBS PPO 00:00:00 POS OUT OF STATE GENERICxxxxxxxx1 -Pres [id number] [id number], [place] [id number] Problems Condition Condition Condition Status Onset Resolution Last Treating Co mments Source Name Details Category Date Date Treatment Clinician Date Lumbago Lumbago Disease Active 2020- Univers 3-19 ity of 00:00: [address] Prostate Prostate Disease Active 2019-04 nodule nodule 0-23 Anderso 00:00: n 00 Right hand Right hand Disease Active 2018-0 U nivers pain pain 3-31 ity of 00:00: [address] Obesity Obesity Disease Active 2018- Univers (BMI (BMI 1-05 ity of 30-39.9) 30-39.9) 00:00: [address] Branch Abscess of Abscess of Disease Active 2018- U nivers umbilicus umbilicus 1-04 ity of 00:00: [address] Branch Cellulitis Cellulitis Disease Active 2018-0 U nivers and and 1-04 ity of abscess [place] trunk trunk 00 [place] Branch LT KNEE Diagnosis Active 2016-042017-06-14 Me moria 2-11 14:01:00 l LT KNEE 08:00: [place] 00 Active 03/25/2017 [facility] S80.02XA - Diagnosis Active 2016-042017-01-21 Memoria "CONTUSION 0-02 10:55:00 l OF LEFT S80.02XA 00:01: Deidra nn KNEE, INIT - 00 "CONTUSION OF LEFT KNEE, INIT Active 01/14/2017 MOLLYJonny [place] Pain Pain Disease Active 2016-0 Univers 18 ity of 00:00: [place] 00 Medical Branch EYE/ Diagnosis Active 2012-2012-04-28 Mem oria BLURRINESS 1-14 16:23:00 l EYE/ 00:00: [place] BLURRINESS 00 Active 04/28/2012 [facility] Pain in Problem 2017-10-12 Lencho merritt left knee 11:09:46 l Pain in [place] left knee 10/12/2017 [facility] Stiffness Problem 2017-07-31 Me moria of left 14:52:42 l knee, not [place] elsewhere Stiffness classified of left knee, not elsewhere classified 07/31/2017 [facility] Muscle Problem 2017-07-31 Memor ia weakness 14:52:42 l (generaliz Muscle Herm lacie ed) weakness (generaliz ed) 07/31/2017 [facility] Other Problem 2017-07-31 Memor ia muscle 14:52:42 l spasm Other [place] muscle spasm 07/31/2017 [facility] Localized Problem 2017-07-31 Me moria edema 14:52:42 l [place] Localized edema 07/31/2017 [facility] Unspecifie Problem 2017-07-31 M emoria d 14:52:42 l abnormalit [place] n ies of Unspecifie gait and d mobility abnormalit ies of gait and mobility 07/31/2017 [facility] Left knee Left knee Problem Active [...] Complex Problem 2017-2017-10-12 2017-10-12 Memoria tear of 07-13 11:09:46 11:09:46 l lateral Complex 04:46: [place] n meniscus, tear of 57 current lateral injury, meniscus, left knee, current subsequent injury, encounter left knee, subsequent encounter 07/13/2017 10/12/2017 [facility] Allergies, Adverse Reactions, Alerts Allergy Allergy Status Severity Reaction(s) Onset Inactive Treating Comm ents Source Name Type Date Date Clinician HYDROMOR DRUG Active Hallucinates 2020-0 Un wanda PHONE INGREDI 05-18 ity of 00:00: [place] [facility] Hydromor Drug Active Hallucinatio 2019-0 Un wanda phone Allergy ns 05-18 ity of 00:00: [place] [facility] celecoxi DA Active DC 2018-04 [facility] [place] [facility] celecoxi DA Active DC HIVES 2018-04 [facility] [place] [facility] Celecoxi Drug Active Itching 2016-04 Other Univers b Allergy 2-30 reaction( ity of 00:00: s): [place] 00 Eruption Medical of skin Branch Celecoxi Propensi Active Rash 2016-04 Univer s b ty to 2-30 ity of adverse 00:00: [place] reaction 00 Medical s Branch CELECOXI DRUG Active Low Rash 2016-04 Univers B INGREDI 2-30 ity of 00:00: [place] 00 Medical Branch Family History Family Member Diagnosis Comments Start Date Stop Date Source Natural brother Prostate cancer MD Jalen boyce Natural brother Thyroid cancer MD Bren vera Natural father Colon cancer Gilbetr son Natural father Kidney cancer MD Ulloa rsjoshua Natural father Liver cancer Gilbert son Natural father Lung cancer MD Fonseca on Natural father Pancreatic cancer MD Reese Natural father Prostate cancer MD Bren vera Maternal grandfather Pancreatic cancer MD Reese Maternal grandmother Pancreatic cancer MD Reese Natural mother Breast cancer MD Ulloa rson Social History Social Habit Start Date Stop Date Quantity Comments Source Exposure to Not sure University of SARS-CoV-2 [place] [facility] (event) Branch History SDOH University o f Alcohol Frequency [place] [facility] History SDFL University o f Alcohol Std [place] [facility] Drinks Branch History [facility] o f Alcohol Binge [place] [facility] Alcohol Comment 2020-12-04 2020-12-04 occasional Universit y of 00:00:00 00:00:00 [facility] Alcohol intake 2020-11-02 2020-11-02 Ex-drinker MD Jasper alfaro 00:00:00 00:00:00 (finding) Tobacco use and 2020-02-05 2020-02-05 Smokeless tobacco Hugh exposure 00:00:00 00:00:00 non-user Tobacco Comment 2018-07-24 2018-07-24 quit 10 years ago Un iversity of 00:00:00 00:00:00 [facility] Social History 2017-03-12 2017-03-12 [facility] 05:59:00 05:59:00 History of 2007-04-19 Smoker University of tobacco use 00:00:00 [facility] Sex Ass[birth year] At [birth year] MD Fonseca on 00:00:00 00:00:00 Smoking Status Start Date Stop Date Source Light tobacco smoker 2020-02-05 00:00:00 MD Ulloa rsjoshua Former smoker 2017-04-18 00:00:00 2017-04-18 00:[facility]:00 [facility] [place] Medications Ordered Filled Start Stop Current Ordering Indication Dosage Frequency Signature Comments Components Source Medication Medication Date Date Medication? Clinician (SIG) Name Name hydrocortis Yes [id number] Apply to Univers one 2.5 % -04 area(s) 2 ity o f cream 00:00: (two) [place] 00 times Medical daily. Branch hydrocortis Yes [id number] Apply to Univers one 2.5 % 1-04 area(s) 2 ity o f cream 00:00: (two) [place] 00 times Medical daily. Branch hydrOXYzine 2021- Yes [id number] 50mg Take 1 Univers 50 mg 04-18 tablet by ity of tablet 00:00: 05:59 mouth 3 [place] 00 :00 (three) Medical times [place] daily as needed for Itching for up to 10 days. dexamethaso 2020-04- No 10mg 10 mg, Uni vers ne 06-06 Oral, ity of (DECADRON 00:00: 22:59 ONCE, 1 [place] PHOS[place] 00 :00 dose, On Medic al injection Tue Branch 10 mg 04/04/21 at 1800, Routine ondansetron 2020-04 No 4mg 4 mg, Slow Univers (ZOFRAN 06-05 IV Push, ity of (PF)) 22:15: 22:03 ONCE, 1 [place] injection 4 00 :00 dose, On Medi elian mg Tue Branch 04/04/21 at 1615, BE morpHINE 2020-04- No 4mg 4 mg, Slow Un wanda injection 4 06-05 IV Push, ity of mg 22:15: 22:05 ONCE, 1 [place] 00 :00 dose, On Medical Tue Branch 04/04/21 at 1615, STAT ondansetron 2020-04 No 4mg 4 mg, Slow Univers (ZOFRAN 06-05 IV Push, ity of (PF)) 22:15: 21:17 ONCE, 1 [place] injection 4 00 :00 dose, On Medi elian mg Tue Branch 04/04/21 at 1615, Routine iopamidol 2020-04- No [id number] 120mL 120 mL, Univers (ISOVUE 06-05 Intravenou ity o f 370-500 mL) 21:44: 22:00 s, ONCE, 1 [place] injection 00 :00 dose, On Medica l 120 mL Tue Branch 04/04/21 at 1600, Routine dicyclomine 2020-04 Yes [id number] 10mg Take 1 Univers (BENTYL) 10 2-21 capsule by it y of mg capsule 00:00: mouth [place] 00 every 8 Medical (eight) Branch hours as needed for Abdominal pain. dicyclomine 2020-04 Yes [id number] 10mg Take 1 Univers (BENTYL) 10 2-21 capsule by it y of mg capsule 00:00: mouth [place] 00 every 8 Medical (eight) Branch hours as needed for Abdominal pain. dicyclomine 2020-04 Yes [id number] 10mg Take 1 Univers (BENTYL) 10 2-21 capsule by it y of mg capsule 00:00: mouth [place] 00 every 8 Medical (eight) Branch hours as needed for Abdominal pain. dicyclomine 2020-04 Yes [id number] 10mg Take 1 Univers (BENTYL) 10 2-21 capsule by it y of mg capsule 00:00: mouth [place] 00 every 8 Medical (eight) Branch hours as needed for Abdominal pain. benzonatate 0 Yes [id number] 100mg Take 1 Univers 100 mg 8-22 capsule by ity of capsule 00:00: mouth 3 [place] 00 (three) Medical times Branch daily as needed for Cough. ondansetron Yes [id number] 4mg Take 1 Univers 4 mg 8-22 tablet by ity of disintegrat 00:00: mouth [place] ing tablet 00 every 8 Medica l (eight) Branch hours as needed for Nausea and Vomiting (N/V). benzonatate Yes [id number] 100mg Take 1 Univers 100 mg 8-22 capsule by ity of capsule 00:00: mouth 3 [place] 00 (three) Medical times Branch daily as needed for Cough. ondansetron Yes [id number] 4mg Take 1 Univers 4 mg 8-22 tablet by ity of disintegrat 00:00: mouth [place] ing tablet 00 every 8 Medica l (eight) Branch hours as needed for Nausea and Vomiting (N/V). benzonatate Yes [id number] 100mg Take 1 Univers 100 mg 8-22 capsule by ity of capsule 00:00: mouth 3 [place] 00 (three) Medical times Branch daily as needed for Cough. ondansetron Yes [id number] 4mg Take 1 Univers 4 mg 8-22 tablet by ity of disintegrat 00:00: mouth [place] ing tablet 00 every 8 Medica l (eight) Branch hours as needed for Nausea and Vomiting (N/V). benzonatate 0 Yes [id number] 100mg Take 1 Univers 100 mg 8-22 capsule by ity of capsule 00:00: mouth 3 [place] 00 (three) Medical times Branch daily as needed for Cough. ondansetron 0 Yes [id number] 4mg Take 1 Univers 4 mg 8-22 tablet by ity of disintegrat 00:00: mouth [place] ing tablet 00 every 8 Medica l (eight) Branch hours as needed for Nausea and Vomiting (N/V). benzonatate 0 Yes [id number] 100mg Take 1 Univers 100 mg 8-22 capsule by ity of capsule 00:00: mouth 3 [place] 00 (three) Medical times Branch daily as needed for Cough. ondansetron Yes [id number] 4mg Take 1 Univers 4 mg 8-22 tablet by ity of disintegrat 00:00: mouth [place] ing tablet 00 every 8 Medica l (eight) Branch hours as needed for Nausea and Vomiting (N/V). HYDROcodone Yes Acute 1{tbl} Take 1 M D -acetaminop 8-18 postoperati tablet by Anderso [facility] (Saygent) 00:00: ve pain mouth n 5 mg-325 mg 00 every 6 per tablet (six) hours as needed for moderate pain. HYDROcodone 2020- No Acute 1{tbl} Take 1 MD -acetaminop 8-16 08-18 postoperati tablet by AndOfferIQkahlil quiroz (Saygent) 00:00: 00:00 ve pain mouth n 5 mg-325 mg 00 :00 every 6 per tablet (six) hours as needed for moderate pain. HYDROcodone 2020- No Acute 1{tbl} Take 1 MD -acetaminop 7-20 08-13 postoperati tablet by Tinubu Squareo [facility] ([facility]gent) 00:00: 00:00 ve pain mouth n 5 mg-325 mg 00 :00 every 6 per tablet (six) hours as needed for moderate pain. neomycin 2020- No Prostate Insert 1 MD enema 500 7-16 07-20 nodule enema (500 A nderso MG/120 ML 00:00: 00:00 mg total) n (AMB-CMPD) 00 :00 rectally as directed for a single dose. gabapentin Yes MD (NEURONTIN) 6-22 Anderso 300 mg 00:00: n capsule 00 baclofen 0 Yes MD (LIORESAL) 6-22 Anderso 10 mg 00:00: n tablet 00 sertraline Yes Take by Uni vers HCl 3-20 mouth. ity of (SERTRALINE 18:17: [place] ORAL) 16 Medical Branch sertraline Yes Take by Uni vers HCl 3-20 mouth. ity of (SERTRALINE 13:17: [place] ORAL) 16 Medical Branch sertraline Yes Take by Uni vers HCl 3-20 mouth. ity of (SERTRALINE 13:17: [place] ORAL) 16 Medical Branch sertraline Yes Take by Uni vers HCl 3-20 mouth. ity of (SERTRALINE 13:17: [place] ORAL) 16 Medical Branch sertraline Yes Take by Uni vers HCl 3-20 mouth. ity of (SERTRALINE 13:17: [place] ORAL) 16 Medical Branch benzonatate Yes [id number] 100mg Take 1 Univers 100 mg 1-07 capsule by ity of capsule 00:00: mouth 3 [place] 00 (three) Medical times Branch daily as needed for Cough. chlorphenir Yes [id number] 4mg Take 1 Univers amine 4 mg 1-07 tablet by ity of tablet 00:00: mouth [place] 00 every 6 Medical (six) Branch hours as needed for Allergies or Runny nose. multivitami Yes [id number] 1{capsu Take 1 Univers n capsule 1-07 le} capsule by ity of 00:00: mouth [place] 00 daily. Medical Branch calcium-mag Yes [id number] Take as Univers nesium-zinc 1-07 directed ity of 333-133-8.3 00:00: for daily [place] mg Tab 00 dose. Medical Branch ondansetron Yes [id number] 4mg Take 1 Univers 4 mg 1-07 tablet by ity of disintegrat 00:00: mouth [place] ing tablet 00 every 8 Medica l (eight) Branch hours as needed for Nausea and Vomiting (N/V). benzonatate Yes [id number] 100mg Take 1 Univers 100 mg 1-07 capsule by ity of capsule 00:00: mouth 3 [place] 00 (three) Medical times Branch daily as needed for Cough. chlorphenir Yes [id number] 4mg Take 1 Univers amine 4 mg 1-07 tablet by ity of tablet 00:00: mouth [place] 00 every 6 Medical (six) Branch hours as needed for Allergies or Runny nose. multivitami Yes [id number] 1{capsu Take 1 Univers n capsule 1-07 le} capsule by ity of 00:00: mouth [place] 00 daily. Medical Branch calcium-mag Yes [id number] Take as Univers nesium-zinc 1-07 directed ity of 333-133-8.3 00:00: for daily [place] mg Tab 00 dose. Medical Branch ondansetron Yes [id number] 4mg Take 1 Univers 4 mg 1-07 tablet by ity of disintegrat 00:00: mouth [place] ing tablet 00 every 8 Medica l (eight) Branch hours as needed for Nausea and Vomiting (N/V). benzonatate Yes [id number] 100mg Take 1 Univers 100 mg 1-07 capsule by ity of capsule 00:00: mouth 3 [place] 00 (three) Medical times Branch daily as needed for Cough. chlorphenir Yes [id number] 4mg Take 1 Univers amine 4 mg 1-07 tablet by ity of tablet 00:00: mouth [place] 00 every 6 Medical (six) Branch hours as needed for Allergies or Runny nose. multivitami Yes [id number] 1{capsu Take 1 Univers n capsule 1-07 le} capsule by ity of 00:00: mouth [place] 00 daily. Medical Branch calcium-mag Yes [id number] Take as Univers nesium-zinc 1-07 directed ity of 333-133-8.3 00:00: for daily [place] mg Tab 00 dose. Medical Branch ondansetron Yes [id number] 4mg Take 1 Univers 4 mg 1-07 tablet by ity of disintegrat 00:00: mouth [place] ing tablet 00 every 8 Medica l (eight) Branch hours as needed for Nausea and Vomiting (N/V). benzonatate Yes [id number] 100mg Take 1 Univers 100 mg 1-07 capsule by ity of capsule 00:00: mouth 3 [place] 00 (three) Medical times Branch daily as needed for Cough. chlorphenir Yes [id number] 4mg Take 1 Univers amine 4 mg 1-07 tablet by ity of tablet 00:00: mouth [place] 00 every 6 Medical (six) Branch hours as needed for Allergies or Runny nose. multivitami Yes [id number] 1{capsu Take 1 Univers n capsule 1-07 le} capsule by ity of 00:00: mouth [place] 00 daily. Medical Branch calcium-mag Yes [id number] Take as Univers nesium-zinc 1-07 directed ity of 333-133-8.3 00:00: for daily [place] mg Tab 00 dose. Medical Branch ondansetron Yes [id number] 4mg Take 1 Univers 4 mg 1-07 tablet by ity of disintegrat 00:00: mouth [place] ing tablet 00 every 8 Medica l (eight) Branch hours as needed for Nausea and Vomiting (N/V). benzonatate Yes [id number] 100mg Take 1 Univers 100 mg 1-07 capsule by ity of capsule 00:00: mouth 3 [place] 00 (three) Medical times Branch daily as needed for Cough. chlorphenir Yes [id number] 4mg Take 1 Univers amine 4 mg 1-07 tablet by ity of tablet 00:00: mouth [place] 00 every 6 Medical (six) Branch hours as needed for Allergies or Runny nose. multivitami Yes [id number] 1{capsu Take 1 Univers n capsule 1-07 le} capsule by ity of 00:00: mouth [place] 00 daily. Medical Branch calcium-mag Yes [id number] Take as Univers nesium-zinc 1-07 directed ity of 333-133-8.3 00:00: for daily [place] mg Tab 00 dose. Medical Branch ondansetron Yes [id number] 4mg Take 1 Univers 4 mg 1-07 tablet by ity of disintegrat 00:00: mouth [place] ing tablet 00 every 8 Medica l (eight) Branch hours as needed for Nausea and Vomiting (N/V). ondansetron 2019-04 Yes MD ESCOBAR) 4 0-05 Anderso mg tablet 00:00: n 00 omeprazole 2019-04 Yes Univers 20 mg 0-02 ity of capsule 00:00: [place] 00 Medical Branch amitriptyli 2019-04 Yes Anna s ne 25 mg 0-02 ity of tablet 00:00: [place] 00 Medical Branch omeprazole 2019- Yes Univers 20 mg 0-02 ity of capsule 00:00: [place] 00 Medical Branch amitriptyli 2019-04 Yes Anna benavides ne 25 mg 0-02 ity of tablet 00:00: [place] 00 Medical Branch omeprazole 2020-1 Yes Univers 20 mg 0-02 ity of capsule 00:00: [place] 00 Medical Branch amitriptyli 2020-1 Yes Univer s ne 25 mg 0-02 ity of tablet 00:00: [place] 00 Medical Branch omeprazole 2020-1 Yes Univers 20 mg 0-02 ity of capsule 00:00: [place] 00 Medical Branch amitriptyli 2020-1 Yes Univer s ne 25 mg 0-02 ity of tablet 00:00: [place] 00 Medical Branch omeprazole 2020- Yes Univers 20 mg 0-02 ity of capsule 00:00: [place] 00 Medical Branch amitriptyli 2020- Yes Univer s ne 25 mg 0-02 ity of tablet 00:00: [place] 00 Medical Branch amitriptyli 2019- Yes MD morales (ELAVIL) 0-02 Anderso 25 mg 00:00: n tablet 00 omeprazole 2019-1 Yes (PriLOSEC) 0-02 Anderso 20 mg 00:00: n capsule 00 sertraline 2020-0 Yes (ZOLOFT) 9-08 Anderso 100 mg 00:00: n tablet 00 zolpidem 2020-0 Yes (AMBIEN) 5 8-16 Anderso mg tablet 00:00: n 00 sildenafil 2020-0 Yes (VIAGRA) 50 8-03 Anderso MG tablet 00:00: n 00 prazosin 2020-0 Yes (MINIPRESS) 7-23 Anderso 5 mg 00:00: n capsule 00 proMETHazin 2020-0 Yes [id number] 25mg Take 1 Univers e 25 mg 7-13 tablet by ity of tablet 00:00: mouth [place] 00 every 6 Medical (six) Branch hours as needed for Nausea and Vomiting (N/V). proMETHazin 2020-0 Yes [id number] 25mg Take 1 Univers e 25 mg 7-13 tablet by ity of tablet 00:00: mouth [place] 00 every 6 Medical (six) Branch hours as needed for Nausea and Vomiting (N/V). proMETHazin 2020-0 Yes [id number] 25mg Take 1 Univers e 25 mg 7-13 tablet by ity of tablet 00:00: mouth [place] [id number] every 6 Medical (six) Branch hours as needed for Nausea and Vomiting (N/V). proMETHazin 2020-0 Yes [id number] 25mg Take 1 Univers e 25 mg 7-13 tablet by ity of tablet 00:00: mouth [place] 00 every 6 Medical (six) Branch hours as needed for Nausea and Vomiting (N/V). proMETHazin 2020-0 Yes [id number] 25mg Take 1 Univers e 25 mg 7-13 tablet by ity of tablet 00:00: mouth [place] 00 every 6 Medical (six) Branch hours as needed for Nausea and Vomiting (N/V). meloxicam 2020-0 Yes [id number] 7.5mg Take 1 Univers 7.5 mg 1-16 tablet by ity of tablet 00:00: mouth [place] 00 daily. [facility] Branch meloxicam 2020-0 Yes [id number] 7.5mg Take 1 Univers 7.5 mg 1-16 tablet by ity of tablet 00:00: mouth [place] 00 daily. [facility] meloxicam 2020-0 Yes [id number] 7.5mg Take 1 Univers 7.5 mg 1-16 tablet by ity of tablet 00:00: mouth [place] 00 daily. [facility] meloxicam 2020-0 Yes [id number] 7.5mg Take 1 Univers 7.5 mg 1-16 tablet by ity of tablet 00:00: mouth [place] 00 daily. [facility] meloxicam 2020-0 Yes [id number] 7.5mg Take 1 Univers 7.5 mg 1-16 tablet by ity of tablet 00:00: mouth [place] 00 daily. [facility] Celecoxib Celecoxib 2016- Yes JHON Q0.5D TAKE 1 Univers 200 MG Oral 200 MG Oral 2-06 PACINI CAPSULE ity of Capsule Capsule 00:00: P.A. TWICE [place] 00 DAILY WITH [facility] FOOD. ans ofloxacin Yes Gaurang 2 drp, Lencho merritt ophthalmic 1-14 [place] LEFT EYE, l 0.3% 22:05: Rose QID, 5 ml, Deidra nn solution 24 Substitute Allowed Immunizations Ordered Filled Immunization Date Status Comments [facility] e Immunization Name Name SARS-COV-2 COVID-19 2020-12-16 Completed Unive rsity of PFIZER VACCINE 00:00:00 [facility] SARS-COV-2 COVID-19 2020-12-16 Completed Unive rsity of PFIZER VACCINE 00:00:00 [facility] SARS-COV-2 COVID-19 2020-12-16 Completed Unive rsity of PFIZER VACCINE 00:00:00 [facility] SARS-COV-2 COVID-19 2020-12-16 Completed Unive rsity of PFIZER VACCINE 00:00:00 [facility] SARS-COV-2 COVID-19 2020-12-16 Completed Unive rsity of PFIZER VACCINE 00:00:00 [facility] SARS-COV-2 COVID-19 2020-11-25 Completed Unive rsity of PFIZER VACCINE 00:00:00 [facility] SARS-COV-2 COVID-19 2020-11-25 Completed Unive rsity of PFIZER VACCINE 00:00:00 [facility] SARS-COV-2 COVID-19 2020-11-25 Completed Unive rsity of PFIZER VACCINE 00:00:00 [facility] SARS-COV-2 COVID-19 2020-11-25 Completed Unive rsity of PFIZER VACCINE 00:00:00 [facility] SARS-COV-2 COVID-19 2020-11-25 Completed Unive rsity of PFIZER VACCINE 00:00:00 [facility] Vital Signs Vital Name Observation Time Observation Value Comments Source Systolic blood 2021-04-18 23:17:00 117 mm[Hg] Univer sity of pressure [facility] Diastolic blood 2021-04-18 23:17:00 81 mm[Hg] Unive rsity of pressure [facility] Heart rate 2021-04-18 23:17:00 82 /min [facility] Body temperature 2021-04-18 23:17:00 37.11 Krystina [facility] 2021-04-18 23:17:00 18 /[facility] height 2021-04-18 23:17:00 190.5 cm [facility] Body weight 2021-04-18 23:17:00 104.781 kg [facility] BMI 2021-04-18 23:17:00 28.87 kg/m2 [facility] Oxygen saturation in 2021-04-18 23:17:00 97 /min University of [facility] by [facility] Pulse oximetry Branch Systolic blood 2021-04-04 20:05:00 124 mm[Hg] Univer sity of pressure [place] [facility] Diastolic blood 2021-04-04 20:05:00 80 mm[Hg] Unive rsity of pressure [place] [facility] Heart rate 2021-04-04 20:00:00 83 /min Universi ty of [place] [facility] Body temperature 2021-04-04 20:00:00 36.83 Krystina Univ ersity of [place] [facility] Respiratory rate 2021-04-04 20:00:00 20 /min Univ ersity of [place] [facility] Body height 2021-04-04 20:00:00 190.5 cm [facility] [place] [facility] Body weight 2021-04-04 20:00:00 105.189 kg [facility] [place] [facility] BMI 2021-04-04 20:00:00 28.99 kg/m2 [facility]i ty of [place] [facility] [place] Oxygen saturation in 2021-04-04 20:00:00 98 /min University of [facility] by [facility] Pulse oximetry Branch Systolic blood 2021-04-04 23:02:00 122 mm[Hg] Univer [facility] Diastolic blood 2021-04-04 23:02:00 75 mm[Hg] Unive [facility] Heart rate 2021-04-04 23:02:00 69 /min [facility] Respiratory rate 2021-04-04 23:02:00 16 /min [facility] Oxygen saturation in 2021-04-04 23:02:00 99 /min [facility] Body temperature 2021-04-04 20:55:00 37.22 Krystina [facility] Body height 2021-04-04 20:55:00 190.5 cm [facility] Body weight 2021-04-04 20:55:00 104.781 kg [facility] BMI 2021-04-04 20:55:00 28.87 kg/m2 [facility] HEIGHT 2020-02-05 07:40:00 190.5 cm WEIGHT 2020-02-05 07:40:00 96.9 kg Systolic blood 2020-11-01 17:56:07 110 mm[Hg] And renee pressure Diastolic blood 2020-11-01 17:56:07 67 mm[Hg] MD Bren vera pressure Heart rate 2020-11-01 17:56:07 88 /min Gilbert pedraza Body temperature 2020-11-01 17:56:07 36.89 Krystina MD Jalen boyce Respiratory rate 2020-11-01 17:56:07 12 /min MD Jalen boyce Oxygen saturation in 2020-11-01 17:56:07 95 /min MD Reese Arterial blood by Pulse oximetry Body height 2020-10-07 17:53:00 190.5 cm MD Hunt keila Body weight 2020-10-07 17:53:00 104.7 kg Gilbert pedraza BMI 2020-10-07 17:53:00 28.85 kg/m2 Gilbert son Weight 2012-04-28 20:22:00 [facility] Height 2012-04-28 20:22:00 190.50 cm [facility] Procedures Procedure Date / Time Performing Clinician Source Performed CT ABDOMEN PELVIS W 2021-04-04 21:52:21 John Naranjo [facility] URINALYSIS 2021-04-04 21:16:00 [facility] LIPASE 2021-04-04 21:11:00 [facility] COMP. METABOLIC PANEL 2021-04-04 21:11:[id number] CBC WITH DIFF 2021-04-04 21:11:00 [facility] CONSENT/REFUSAL FOR 2021-04-04 20:40:12 Doctor Unassigned, [facility] DIAGNOSIS AND TREATMENT [place] [facility] SARS-COV-2 COVID-19 2020-12-16 19:14:50 [facility] VACCINE,0.3ML,IM (PFIZER) [place] [facility] POC GLUCOSE SCREEN 2020-11-01 01:19:00 Brandon Huerta MD A nderson POC GLUCOSE SCREEN 2020-10-31 21:00:00 Brandon Huerta MD A veronicarson NEEDLE BIOPSY OF 2020-10-31 19:50:00 Brandon Huerta MD And erson PROSTATE(IN OR) ULTRASOUND, TRANSRECTAL 2020-10-31 19:50:00 Brandon Huerta MD 3D IMAGE RENDERING, 2020-10-31 19:50:[address]/MRI/US WITH INDEPENDENT WORKSTATION PATHOLOGY BIOPSY 2020-10-31 17:34:00 Brandon Huerta MD And erson INTERPRETATION COVID-19 (SARS-COV-2) 2020-10-28 14:39:00 Brandon Huerta PCR-ASYMPTOMATIC [facility] COMPLETE BLOOD COUNT W/ 2020-10-28 14:20:00 Brandon Huerta MD DIFFERENTIAL COMPREHENSIVE METABOLIC 2020-10-28 14:20:00 Brandon Huerta MD PANEL HEMOGLOBIN A1C 2020-10-28 14:20:00 Brandon Huerta MD Artemio rson TYPE AND SCREEN 2020-10-28 14:20:00 Brandon Huerta MD Artemio rsjoshua Results CBC 2020-10-28 14:20:00 Brandon Huerta MD Artemio rsjoshua MANUAL DIFFERENTIAL 2020-10-28 14:20:00 Brandon Huerta MD GLUCOSE LEVEL 2020-10-28 14:20:00 Brandon Huerta MD Artemio rsjoshua BLOOD UREA NITROGEN 2020-10-28 14:20:00 Brandon Huerta MD ELECTROLYTE PANEL 2020-10-28 14:20:00 Brandon Huerta MDson SERUM CREATININE 2020-10-28 14:20:00 Brandon Huerta MD And erson .GLOMERULAR FILTRATION 2020-10-28 14:20:00 Brandon Huerta MD RATE CALCIUM LEVEL TOTAL 2020-10-28 14:20:00 Brandon Huerta MD ALBUMIN LEVEL 2020-10-28 14:20:00 Brandon Huerta MD rson ALKALINE PHOSPHATASE 2020-10-28 14:20:00 Brandon Huerta MD ALANINE AMINOTRANSFERASE 2020-10-28 14:20:00 Brandon Huerta MD ASPARTATE AMINOTRANSFERASE 2020-10-28 14:20:00 Brandon Huerta MD TOTAL PROTEIN 2020-10-28 14:20:00 Brandon Huerta MD rson FRACTIONATED BILIRUBIN 2020-10-28 14:20:00 Brandon Huerta MD ABORH 2020-10-28 14:20:00 Brandon Huerta MD Artemio rson ANTIBODY SCREEN 2020-10-28 14:20:00 Brandon Huerta MD rson TMP INTERPRETATION 2020-10-28 14:20:00 Brandon Huerta MD nderson ANTIBODY SCREEN NEGATIVE CLOT EXPIRATION DATE 2020-10-28 14:20:00 Brandon Huerta MD CONFIRM ABORH TYPE 2020-10-28 14:17:00 Brandon Huerta MD nderson GUA 2020-10-28 14:11:00 Brandon Huerta MD rson MRI MULTI RECONSTRUCTION 2020-10-19 19:05:50 Brandon Huerta MD ON INDEPENDENT WORKSTATION PROSTATE SPECIFIC ANTIGEN 2020-10-07 17:44:00 Brandon Huerta MD [U] XRAY KNEE 4 OR MORE 2019-05-11 00:00:00 [facility] RIGHT [id number] Physicians [id number] 2019-04-21 00:00:00 [facility] [id number] 2019-04-17 00:00:00 [facility] [id number] 2019-04-17 00:00:00 [facility]INDA [facility] [id number] 2019-04-03 00:00:00 MARRO.02 [facility] [id number] 2019-04-03 00:00:00 MARRO.02 [facility] [id number] 2019-03-30 00:00:00 MARRO.02 [facility] [id number] 2019-03-30 00:00:00 MARRO.02 [facility] [id number] 2019-03-25 00:00:00 MARRO.02 [facility] [U] XRAY KNEE 4 OR MORE 2017-03-11 00:00:00 [facility] RIGHT [id number] Physicians [U] XR KNEE 4 OR MORE [facility] 2017-03-11 00:00:00 Un [facility] BILATERAL Physicians Plan of Care Planned Activity Planned Date Details Comments Source Future Scheduled Test 1989 00:00:00 COVID-19 Vaccination MD Reese (1) [code = COVID-19 Vaccination (1)] Encounters Start End Encounter Admission Attending Care Care Encounter Source Date/Time Date/Time Type Type Clinicians Facility Department ID 2021-02-13 Emergency [facility] [id number] Univers 17:13:06 ity of [facility] 2021-02-12 Emergency X [facility] [id number] Univers 17:30:17 ity of [facility] 2021-02-12 Emergency [facility] [id number] Univers 07:01:56 ity of [facility] 2021-02-11 Emergency [facility] [id number] Univers 15:44:00 ity of [facility] 2021-02-11 Emergency [facility] [id number] Univers 06:38:40 ity of [facility] 2021-02-10 Emergency [facility] [id number] Univers 06:29:53 ity of [facility] 2021-02-10 Emergency [facility] [id number] Univers 04:45:20 ity [facility] 2020-01-25 Outpatient SYSTEM, [facility] [id number] 14:55:26 PROVIDER Raymundo alfaro 2019-04-16 Inpatient EM Bakari, [facility] [id number] 15:17:00 Andrés [facility] 2019-04-14 Inpatient EM Bakari [facility] [id number] 14:52:00 Andrés [id number] [facility] 2021-06-22 2021-06-22 Outpatient R VERONICA [facility] [id number] Univers 08:45:00 08:45:00 , [facility] [id number] [facility] 2021-05-14 2021-05-14 Deb Yu [facility] [id number] Univers 00:00:00 00:00:00 MiniVax [id number] it y of [place] [id number] Sinan as NORMAN?BLEA [phone] [address] MEDICAL OFFICE [facility] 2021-04-18 2021-04-18 Outpatient R [facility] [id number] Univers 20:00:00 20:00:00 [id number] [facility] 2021-04-18 2021-04-18 Urgent [facility] [id number] Univers 20:00:00 20:00:00 [place] [id number] it neel [facility] [id number] Sinan as NORMAN?BLEA [phone] [address] MEDICAL OFFICE [facility] 2021-04-18 2021-04-[address] [facility] [id number] Univers 20:00:00 18:16:10 [facility] 2021-04-04 2021-04-04 Nurse Nurse, Niko [facility] [id number] Univers 17:15:00 17:35:00 Visit Sree [facility] [id number] itneel [facility] [id number] Sinan as NORMAN?BLEA [phone] [address] 2021-04-04 2021-04-04 Emergency X [facility] ERT [id number] Univers 14:46:00 17:11:00 JOHN [facility] 2021-04-04 2021-04-04 Emergency [facility] [id number] Univers 14:46:00 [facility]:11:[id number] i ty [facility] [id number] [place] [phone] [address] 2021-04-04 2021-04-04 Outpatient R [facility] [id number] Univers 14:00:00 14:00:00 [id number] [facility] 2021-04-04 2021-04-[address] [facility] [id number] Univers 14:00:00 14:00:00 [facility] 2020-12-162020-12-16 Imm/Inj Nurse, Adc Pob Immunization [facility] [id number] Univers 13:52:30 13:53:00 Visit Mil Berrios [id number] .10 [facility] [id number] Vidhi Aceio [phone] Al dical [address] 2020-12-16 2020-12-[address] [facility] [id number] Univers 09:50:00 09:50:00 MIL [facility] 2020-12-04 2020-12-04 Outpatient R [facility] [id number] Univers 11:30:00 11:30:00 [id number] [facility] 2020-12-04 2020-12-[address] [facility] [id number] Univers 11:30:00 11:30:00 ATTENDING [facility] 2020-11-25 2020-11-25 Outpatient [facility] [id number] Univers 14:20:00 14:20:00 [facility] 2020-10-31 2020-11-01 Outpatient MEG HUERTA [facility] [id number] 11:05:00 15:55:00 BRANDON alfaro 2020-10-28 2020-10-28 Outpatient MEG HUERTA MDA MDA [id number] 09:03:51 23:59:00 BRANDON alfaro 2020-10-28 2020-10-28 Outpatient EMG HUERTA MDA MDA [id number] 09:29:25 09:45:35 BRANDON alfaro 2020-10-28 2020-10-28 Outpatient MEG HUERTA MDA MDA [id number] 07:25:08 07:25:08 BRANDON alfaro 2020-10-21 2020-10-[address] [facility] [id number] Univers 12:00:00 12:00:00 HUA [id number] [facility] 2020-10-21 2020-10-[address] [facility] [id number] Univers 12:00:00 12:00:00 [facility] 2020-10-19 2020-10-19 Outpatient MEG HUERTA MDA MDA [id number] 14:05:49 14:05:49 BRANDON alfaro 2020-10-18 2020-10-[address] [facility] [facility] [id number] Univers 14:45:00 14:45:00 MAEVE [id number] [facility] 2020-10-07 2020-10-07 Outpatient MEG HUERTA MDA MDA [id number] 10:45:00 23:59:00 BRANDON alfaro 2020-10-07 2020-10-07 Outpatient MEG HUERTA MDA MDA [id number] 12:51:03 12:51:03 BRANDON alfaro 2020-09-22 2020-09-22 Outpatient [facility] [id number] Univers 16:40:00 16:40:00 [id number] [facility] 2020-09-22 2020-09-[address] [facility] [id number] Univers 16:40:00 16:40:00 MARTHA [facility] 2020-09-20 2020-09-20 Outpatient [facility] [id number] Univers 16:00:00 16:00:00 [id number] [facility] 2020-09-08 2020-09-08 Outpatient [facility] [id number] Univers 16:00:00 16:00:00 [id number] [facility] 2020-09-06 2020-09-06 Outpatient R [facility] [id number] Univers 16:40:00 16:40:00 [id number] [facility] 2020-08-31 2020-08-31 Outpatient [facility] [id number] Univers 16:20:00 16:20:00 [id number] [facility] 2020-08-29 2020-08-29 Outpatient [facility] [id number] Univers 16:20:00 16:20:00 [id number] [facility] 2020-08-24 2020-08-24 Outpatient [facility] [id number] Univers 16:00:00 16:00:00 [id number] [facility] 2020-08-22 2020-08-22 Outpatient R [facility] [id number] Univers 16:00:00 16:00:00 [id number] [facility] 2020-08-15 2020-08-15 Outpatient R [facility] [id number] Univers 15:00:00 15:00:00 [id number] [facility] 2020-08-15 2020-08-[address] [facility] [id number] Univers 15:00:00 15:00:00 [facility] 2020-07-28 2020-07-28 Outpatient R [facility] [id number] Univers 13:00:00 13:00:00 [id number] [facility] 2020-07-28 2020-07-[address] [facility] [id number] Univers 13:00:00 13:00:00 [facility] 2020-07-18 2020-07-18 Outpatient R [facility] [id number] Univers 15:00:00 15:00:00 [id number] [facility] 2020-07-18 2020-07-[address] [facility] [id number] Univers 15:00:00 15:00:00 [facility] 2020-07-06 2020-07-06 Outpatient R DOC [facility] [id number] Univers 16:20:00 16:20:00 JEFF [id number] [facility] 2020-07-06 2020-07-[address] [facility] [id number] Univers 16:20:00 16:20:00 JEFF [facility] 2020-06-30 2020-06-[address] [facility] [id number] Univers 19:45:00 19:45:00 SHIRIN it o f [facility] 2020-06-30 2020-06-30 Outpatient R [facility] [id number] Univers 18:20:00 18:20:00 [id number] [facility] 2020-06-30 2020-06-30 Outpatient R HERO, [facility] [id number] Univers 18:20:00 18:20:00 SHIRIN johnson o mango [facility] 2020-05-17 2020-05-17 Outpatient R [facility] [id number] Univers 19:40:00 19:40:00 [id number] [facility] 2020-05-17 2020-05-[address] [facility] [id number] Univers 19:40:00 19:40:00 ANGEL [facility] 2020-02-18 2020-02-18 Outpatient EL TOÑITO, MDA MDA [id number] MD 12:47:35 23:59:00 BRANDON alfaro 2020-02-17 2020-02-17 Outpatient EL TOÑITO, MDA MDA [id number] MD 09:26:09 09:26:09 BRANDON alfaro 2020-02-16 2020-02-16 Outpatient EL TOÑITO, MDA MDA [id number] MD 08:50:51 08:50:51 BRANDON alfaro 2020-02-05 2020-02-05 Outpatient EL TOÑITO, MDA MDA [id number] MD 09:09:49 23:59:00 BRANDON alfaro 2020-02-05 2020-02-05 Outpatient EL TOÑITO, MDA MDA [id number] MD 07:34:44 09:02:25 BRANDON alfaro 2020-02-05 2020-02-05 Outpatient EL MDA MDA [id number] MD 07:25:07 07:25:14 Raymundo alfaro 2020-02-03 2020-02-03 Outpatient EL TOÑITO, MDA MDA [id number] MD 10:05:41 12:24:34 BRANDON alfaro 2019-06-09 2019-06-[address] [facility] [id number] Univers 16:40:00 16:40:00 MARTHA [facility] 2019-05-25 2019-05-[address] [facility] [id number] Univers 15:15:00 15:23:13 JEFF [facility] 2019-05-20 2019-05-20 Outpatient Dimas ROACH [facility] [id number] Univers 12:37:07 23:59:00 [facility] 2019-05-13 2019-05-13 Outpatient Dimas ROACH [facility] [id number] Univers 09:30:00 10:11:12 [facility] 2019-05-11 2019-05-12 Outpt Diag [facility] [id number] Memoria 20:05:00 05:59:00 Services r Outpatient 02 l Imaging Rasta [place] 2019-05-11 2019-05-11 [facility] [id number] Univers 10:30:00 10:30:00 t; JHON MAURICIO, at [facility] JHON, P.A. [facility] [place] [facility] Physici [facility] 2019-04-30 2019-04-30 Outpatient Dimas ROACH [facility] [id number] Univers 09:00:00 09:49:05 [facility] 2019-04-23 2019-04-23 Emergency RICKY, [facility] [id number] [place] 00:00:00 00:00:00 YAN [address] 2019-04-14 2019-04-14 Outpatient Dimas GRETA [facility] [id number] Univers 09:30:00 09:21:42 SEBASTIAN [facility] 2019-04-12 2019-04-12 Emergency X [facility] [id number] Univers 10:46:47 15:01:00 LEWIS [facility] 2019-04-05 2019-04-05 Emergency X [facility] ERT [id number] Univers 13:54:27 20:21:00 STEPHAN [facility] 2019-03-23 2019-04-04 Inpatient FARHAD Gudino [facility] [id number] [facility] 14:49:00 12:13:00 Cristian [id number] [facility] 2017-06-07 2017-07-07 OP Therapy nullFlavo [facility] [id number] Memoria 19:00:00 04:59:00 Patients r 02 l [place] 2017-07-04 2017-07-04 Talib KAPLAN UTP UTP [id number] Univers 11:00:00 11:00:00 t; MIR FARMER it y of Miguel KAPLAN Physici NP ans 2017-06-04 2017-06-04 [facility] LULY, [facility] [id number] Univers 14:30:00 14:30:00 t; JHON MAURICIO, it y of [place] [facility] [facility] Physici ans 2017-04-26 2017-05-26 OP Therapy nullFlavo [facility] [id number] Memoria 16:00:00 05:59:00 Patients r 01 l Rasta 2017-03-26 2017-04-25 OP Therapy nullFlavo [facility] [id number] Memoria 14:31:00 05:59:00 Patients r 00 l [place] 2017-03-11 2017-04-12 Outpatient [facility] [id number] 11:30:00 15:34:46 2017-03-11 2017-03-12 Outpt Diag [facility] [id number] Memoria 20:21:00 05:59:00 Services r Outpatient 01 l Imaging [facility] 2017-03-11 2017-03-11 [facility] [id number] Univers 11:30:00 11:30:00 t; JHON MAURICIO, at [facility] it y of [place] [facility]REIR[place] [facility] Physici ans 2017-01-28 2017-01-28 [facility] [id number] Univers 15:45:00 15:45:00 t; MIR FARMER it y of Miguel KAPLAN Physici NP ans 2017-01-21 2017-01-22 Outpt Diag [facility] [id number] Memoria 15:47:00 04:59:00 Services r Outpatient 00 l Imaging [facility] 2017-01-21 2017-01-21 [facility] [id number] Univers 09:30:00 09:30:00 t; MIR FARMER it y of Miguel KAPLAN Physici NP ans 2012-04-28 2012-04-28 Emergency nullFlavo [facility] [id number] Memoria 14:07:00 16:17:00 r Medical 00 l [facility] Results Test Description Test Time Test Comments Results Result Comments Source COMP. METABOLIC PANEL (82626) 2021-04-04 21:41:07 Test Item Value Reference Range Interpretation Comme nts NA (test code = 8512660179) 138 mmol/L 135-145 K (test code = 9551112225) 3.8 mmol/L 3.5-5.0 CL (test code = 7475187660) 105 mmol/L 98-108 CO2 TOTAL (test code = 27 mmol/L 23-31 7734475031) AGAP (test code = 7520920281) 2-16 BUN (test code = 4315439778) 16 mg/dL 7-23 GLUCOSE (test code = 5694155932) 101 mg/dL 70-110 CREATININE (test code = 0.88 mg/dL 0.60-1.25 0095482252) TOTAL BILI (test code = 0.6 mg/dL 0.1-1.6 2828038568) CALCIUM (test code = 1303369168) 9.6 mg/dL 8.6-10.6 T PROTEIN (test code = 6.9 g/dL 6.3-8.2 6103449233) ALBUMIN (test code = 4942749505) 4.2 g/dL 3.5-5.0 ALK PHOS (test code = 6032124240) 52 U/L 34-122 ALTv (test code = 1742-6) 31 U/L 5-50 AST(SGOT) (test code = 30 U/L 13-40 0432112899) eGFR (test code = 6129430192) mL/min/1.73m2 MARGIE (test code = MARGIE) Association [...] or urine or abnormalities in imaging tests). [facility] 21:[facility]05 Test Item Value Reference Range Interpretation Comments LIPASE (test code = 2951921764) 223 U/L 0-220 H Lab Interpretation (test code = Abnormal 24826-1) [facility] WITH [id number] 21:31:23 Test Item Value Reference Range Interpretation Comments WBC (test code = See_Comment [Automated 5090-2) message] The sy stem which generated this result transmitted reference range : 4.20 - 10.70 10*3/?L. The reference range was not used to interpret this result as normal/abnormal . RBC (test code = See_Comment [Automated 483-8) message] The sy stem which generated this result transmitted reference range : 4.26 - 5.52 10*6/?L. The reference range was not used to interpret this result as normal/abnormal . HGB (test code = 15.1 g/dL 12.2-16.4 718-7) HCT (test code = 43.1 % 38.4-49.3 4544-3) MCV (test code = 91.9 fL 81.7-95.6 787-2) MCH (test code = 32.2 pg 26.1-32.7 785-6) MCHC (test code = 35.0 g/dL 31.2-35.0 786-4) RDW-SD (test code = 41.6 fL 38.5-51.6 70705-8) RDW-CV (test code = 12.5 % 12.1-15.4 788-0) PLT (test code = See_Comment [Automated 777-3) message] The sy stem which generated this result transmitted reference range : 150 - 328 10*3/ ?L. The reference r abdoulaye was not used to interpret this result as normal/abnormal . MPV (test code = 9.5 fL 9.8-13.0 L 49610-3) NRBC/100 WBC (test See_Comment [Automat ed code = 6626127268) message] The system which generated this result transmitted reference range : 0.0 - 10.0 /100 WBCs. The refer ence range was not u sed to interpret th is result as normal/abnormal . NRBC x10^3 (test code <0.01 See_Comment [Auto mated = 2871994128) message] The s ystem which generated this result transmitted reference range : 10*3/?L. The reference range was not used to interpret this result as normal/abnormal . GRAN MAT (NEUT) % 49.9 % (test code = 770-8) IMM GRAN % (test code 0.40 % = 7907422782) LYMPH % (test code = 39.4 % 736-9) MONO % (test code = 7.4 % 5905-5) EOS % (test code = 2.3 % 713-8) BASO % (test code = 0.6 % 706-2) GRAN MAT x10^3(ANC) 2.56 10*3/uL 1.99-6.95 (test code = 1707745519) IMM GRAN x10^3 (test <0.03 0.00-0.06 code = 2859192861) LYMPH x10^3 (test code 2.02 10*3/uL 1.09-3.23 = 731-0) MONO x10^3 (test code 0.38 10*3/uL 0.36-1.02 = 742-7) EOS x10^3 (test code = 0.12 10*3/uL 0.06-0.53 711-2) BASO x10^3 (test code 0.03 10*3/uL 0.01-0.09 = 704-7) Lab Interpretation Abnormal (test code = 07779-5) [facility] [id number] 03:19:54 Test Item Value Reference Range Interpretation Comments Submitted Clinical History z8iyvDYzIIQna3iuIOI (test code = 56577) mbGFuZzEwMzNcZnRuYm pcdWMxIHtccnRmMVxzc 7HpU9NrRfScHOuyazWr XGRlZmxhbmcxMDMzXGZ 0bmJqXHVjMVxkZWZmMH ytOq6sjCUnuPcpRwGtG UUkm4cwotRAtgjawTf6 t7eaFAPwSnM5jHDeVYq tG1yanmUdsBUjEQLvRM g1wU85CRMksC1kjPQgT LzdqvWpPlE4DXwfOTEe RiE4PFEzsGGcBMKpU1v yZWQwXGdyZWVuMFxibH ZsBDY2qMfsx8F3mZNpe GVldHtcZjBcZnMyMiBO w9RaEZz4sJviR5GhMKG vUmU3fPReWQLxEQwyOV ZhKJZuasU0lE65TPpma kI9sIXkj6Kdj88mg828 cB1zeAFmUTV5DEXxBSP pmQYdDRQmDNG7XPVxzM EcM7iwSLMkEX0tlwtxO QlsDIymAUMxnZM5CZMc rWYpQ7TqYJEwCLgaQPD smog3PwXtEf7fzLDucE glCBhsg6ifc9ouhRVjL of8NNPaPyCtEdfuUWnh m6Xbs5xsGWOodi5gUGG 6cIPovAuqq8D9sAIdQC JdvXAsxoYtCNKdUgI9S ZheRF7kkj44JUUhJWD5 wg2zfJBetDedusCxgHR iQVejA1RhRTVdv977IZ GxZ7CtQMXdq2N3vlWeN vDbXNTteXB6wyV0KJGm GZo3lVLxosD5gdZqhDR nN3svzR3eCVMtZO6foo ixu1sfPVhoMGutFUPus DM6noN7QBZpaGQcD8Qp pS6nXQGsSLujEFZgywy 9CvLoFi9oqRLlwXstNJ xzYmtwYWdlXHBnbmNvb nRccGduZGVjXHBsYWlu XHBsYWluXGYwXGZzMjR vbKybeWwtoK3dCoOuLi KqMEptOS0dGBKdK0wcf FWaBIMzUHGvQ4djSsLe cN7biLqnJNpixwAwKQG xv3I7ROCuOO0mAWOfOJ BbTjQwLjJdXHBsYWluX GYxXGZzMjJcbGFuZzEw MzNcaGljaFxmMVxkYmN nTUFaAPooA0okDrDjXd EuSmwfYCY6kL== Diagnosis (test code = 34) o9nyvICvJXNcyJB1MXL rTBYrs8kah1ZfqXUdrM GmWSwzrGWxklPvhz91x WS3uL89MK9lYKObGmW3 CTLbcaX2Heh7EYBuMZZ dzYChF725e0wez8qvin LvyON9OMRrBGBlT1XaO M6iEJLpnNTwT22xrASp VLB8AFFsHWGcqDEhPZP jFZB9VBTslGJdG2eaSZ AmVK5ozwqnCUpjVRrpX DPviDY7FPEgeDGjN0Nx BRNuBHpdJAZiegc1SwU sFg6yaMEqfWvuOObdNF JkXHBsYWluXGZzMjBcY 1VlCWO1KQUjd6B6GCQf VYhyFN1pQBUsLsKhXLI 0IGxhdGVyYWwgYmFzZT pccGFyXGxpNzIwXGxpb akxSOqoTnLxApijta9y aWGbfAwhyvK9gWKqcNN tTJXlACpmyBbvH4pfm3 0kg7RqMJ50z3ZoZBVkl U6faJGlSWMzdtEzns4w kHG4lCLwH9hjihEaBA3 cQAF3wV4tOSBcZKNesf QuIFxwYXJcbGkwXGxpb jBccGFyXGNmMSBCOiBQ gh1beIJ5GXGsxNEpVYr dWe7swGYcvZUlIOAkjh YpOO7iPAqiyCVrRSxwK zIwXGxpbjcyMFxjZjAg OHAlu8ObyVkkUEVjt3B 4BNvfxj2quNLox5JuwL Dti6VstO4xnXTsGIbyX QduhH2qNPKdrztlEgKl AsiiCLBko3CgqRGdX3b hbmQsIDMuIGxlZnQgbG G1MECuaTOdwEI3WdpbO AXpaIq3DcZczUqyLzXb VZKbWQDDaj9hcEV6xYE skOdxk0SiBGMkguK8sK 7unyJpjmIdYI25FleiT XJcbGkwXGxpbjBccGFy ZLBaLKFADtQOds9rkAC 7TBEpvECiUWjgJT3pkD VmdCBtZWRpYWwgYmFzZ TpccGFyXGxpNzIwXGxp pgvbKRlfEqXkBGGzs1A oyZloVXUnz8W9PIkdmq 6rxIGmv9PkpCJqo1Gts M2fbMAfEFeoWUisnD3p XHBhclxjZjEgRTogUHJ vl0MzaPXuI2ekcnHvAR UuIGxlZnQgbWVkaWFsI O5lHWktpROhHMaaHqXj XGxpbjcyMFxjZjAgUHJ xi2PmbPfzQTFab5T0QX nrkc0fcVCqe6OdsPIxk 8KbfG5xwILkMFkzAZoj lS4xKOXjxglpQfKxWha jESCul3WieLBpC6gzno QsIDYuIGxlZnQgbWVka SZsQJHwAZo2NJHueznr iBdwJKsjyN08GnKkD1K hRVBtd4J1SHShEeZ1vK CidHAoMA9mKTF5jW8jJ HByZXNlbnQuXHBhclxs eJFocHstKOxyBDLgK6I nJYl5XAPwc3X9VIJxAK sqIM3hWLF0LeQruFwoi CBtZWRpYWwgYmFzZTpc cGFyXGxpNzIwXGxpbjc nOPjzVtApFWRrw7SinP elMTAtl9J9WRmlik1iq MGbw7AzpXWig2NwxY8s dNBoJNpwOKfeaV5pLUG hclxjZjEgSDogUHJvc3 VsxWDkR0luzjYbRSkcL BCtG8v0HL6xOQqrdVDi cOD9XETbcqolsWtrNKq orQ17HcWgH7PbZJIhu4 N0SNFkLfK1rTLwlUVuZ W0yUDX4bA0oAGTgKTHd bnQuXHBhclxsaTBcbGl gXHgyMFDtF7XpAOc3MW Oew7F1WOHbLVaiGI4fW VH7MaHoiAxvtREuCBYu YWwgYXBleDpccGFyXGx pNzIwXGxpbjcyMFxjZj YhZPPgb9AdsJkeSMKtq 1U3ZKgugr8zpYQnk6Gw qFFkl9DlwF4vkHBgYLk cMVuzjM1sVCIdjprlCz GoSvqaPGPli3OgkHTmW 2xhbmQsIDEwLiByaWdo tVRiQXUdvtLiQWFxu0S 6XHBhclxsaTcyMFxsaW 22DsUdX9KnUYYvd2C0Y KPrOnO4qBZzsRWtTN8a ZLP9kB1jOKQwSORjalK uXHBhclxsaTBcbGluMF vbNZIfV7UhVVf3EXRht 6I0QKTfNDdmCJ6eKQWw TR4pkcttpEHjmBH2IFD pcOSgtMO8JYJffurswT zaVPdayH05PvIuM6EzN DPfq8O7XLMyLmN8rOLs tDMaNX6sAUC5iK2fOLQ yZXNlbnQuXHBhclxsaT JukMpxHJizCWTsG7NhG Tv7KKIov9A0AYPkMCfh PB0pUIGjAx7rfhnoyFU mhDI3JBVvcXAjzQA8Iz gzUGHpsHc5KdWicJlcA dIzJLBhMNSIxi1inIF9 lGMjsFekv6BlZCejqXt vNq2iQKpeFOPle4HhnQ rlNO5pJFTzb1RpuEPfw KEsavmzQZjwSyhsxT9m rVdhogkhke0pmNEge2C xtRLxh9ZmsW6eyQFkNV BhclxwYXJcbGkwXGxpb zZiMLhVN0PNKxKfpCEs XHBhcmRccGFyfQ== Gross Description (test z9brvLTiRESrwVJ5ZEJ code = [id number]) gMOMkh5nkr6OnaXGtiH LtMLtjiKJtiwMiel26a PN5eM59VY6tHAOmNzJ4 WIDkhfS8Qra7QQHiOVP evADbW393j0whe9ccwp QuxSG8BVOxGILgE4IlE O4iTONagHHdD48yfXRo FKX4UVSyPAXksWTeYMR iLSF4QWPxiMHzR0tjZC MyRT5jfdnbMTeyTBofZ BWtuQZ4RWPedFPkK8Mf UHHmYTfyACNbvqj9CwI pEy5tvCRwdBcaJEzjQP Usf9xbIQJotWBbIYL2F FxcaWQgNTEwMDAgXFx0 YQVoXCdfcDJmYI3alUg fBicefQpxu0VehHMjPJ lkIDUxMDAyIFxcZGIgT 1ZSICIgQzIwMDczNCIg HFz0NYjkU9GOXSDtBMS 8LQPfYgs8YfS2UEw2CM CXBa2yBpxsRADiEAS5F OA6USz4CRrvmNZjPMir ZmwgXFxmIEFyaWFsIFx cZnMgMTAgXFxmYiBcXG 5jfVxwbGFpblxiXGZzM jAgQTpccGFyXGNmMSBQ pq1emUE9ZBIdxSHjCRz bYL4ozCOgpGCiZYCqsz RpNTFnb0X5JNDsZARqO QGdGDJhiJ4kKAPaJZSk o1YgCSDka0KobTEnWtO syCTaFsTwI83nRAWcjO bfWLg6AYD8Ta2azWFmI YPveeAGVV2aDUngoj48 DYJ0m5lgzEJhTWwuXbl ukPLbpiQ5YKuRDRLJVO cYUnTjIR6oXFeDCidDK UdJTnwyMTAxNnwxfFVT CPB5ITehwBphgTn9a0r kiEUij7i9RZwvPLN2iB hHe2sekUIyJZvlVxowz JEvlhW3QTjHGXBDWIuR SuZtRH0pYZvGWafJUhA 1GsUeBEO8KDgVR8GKvF O8Ben0KCz6jNxsGohqs fMewKNsRfMsoX7iqQgo yW1yFlYgUBtoULGlD9V rZ9LwawAkkNPnSNXhrq Ufo9dmDRY6MFSpwPNep QGfVwVjGnqbXGK9g8as ASXhlEVqKFD3LIwolTJ gNTEwMDIgXFxkYiBPVl WrEzVZKiMeOwE5ExW2P Vo3JRBEZiGwZmWeIWL1 RiMdGIEtFHa5IMy5SJe YDtC3ZXR0RkH2MZmkGS H1GNpoSTr2CIXnUZuwf CBcXGYgQXJpYWwgXFxm cyAxMCBcXGZiIFxcbmN 9XGIgQjpccGFyXGNmMS GAtd2nlJE6FNVpfOWjS RolSj8ifILszIZpXIEu rqIsWR9bFIvfMiXnJ9F kUZAzHPQejZGeHX5tJR ToHUvnHWkqV98qQXTfb H5sp7cqYF2pBKcnVP4j IGNtLCBlbnRpcmVseSB woTOfxRU2PQGqgO6aTl EuICBccHJvdGVjdHtcZ nxyrJL7UGzbBwejnN9k dCBIWVBFUkxJTksgbmF fND8QBF7WOvSTWP49Wl WwRDK6FvyRD0ONmYG9O tx9PRc4kOywQdrdgzNe zKXtOjDdjN4OJPymDzm odOT2SWrtKvckbE0vjG BIWVBFUkxJTksgbmFtZ L9XHO0EQM4HqUPwELW9 dRK8MCSCYpytoCG1oJE 3uJ82TXFiKZLvbYHaUR gqB883EMWaMBnlHHTwJ iX1PQPptLXeLMU6JC1o XHBhclxwYXJkXHNsLTE 5NIhxuG72tCJnDTAiAF ZccGFyfXtcKlxlcGljc 2VjdCBcXGlkIDUxMDAy JYgrUIWyK2FEXCHvGeO lFMvrIPOoMMa9NMvxQ9 ILNZQqJDZ8FPPaCharT kA2OPs0CKDQXa5oAtcd DGN9NoZ1PJX7HGm9LBb cdCAyIFxcZmwgXFxmIE FyaWFsIFxcZnMgMTAgX WcqQdKjYR3soCvfIWZ1 MTAmonxvYgRhVKAjv3Y ccSFiV3uzeuIrUWKtMV ydGvIdyMY2DMJbhYHgv MB5TasoSYlzZoVxTCVj bJHjIZzimgXdm6guJ5X tmHThi0BuMXZga8WczD LnEgVvoKOkKkYyC00xN PZfbQjpTKm7YVH5Ph1r mRInQNWjqrNGIR3oDTc gmy84ASP0v7crwWBoTB jsSksjsIOfchS6SQdTR IOAZTuOJeUjUQ4eVUwC TktCRUdJTnwyMTAxNnw wjBOPGYF2CExxgWzgzQ b3i5ygkDJks8x6EJtwA SI2oNfWt2eqvVKmJIlu LbqxdVVsouU6XJmJROI SSViUTmRfIV4hSUkNFe wWKmK9MyYuFMW4G0iST 3SBkBS8Gpl2JBa1bEav ZmxkcnNsdCBcJzFjfX1 dtTbznK8jAwRrJGwbSV QaX5IcM1EhbgYlhDOyX EMwqqElx5pvYFL6SVHk bXVsdDBcZnMxNlxwYXJ 0p6byXVRruNNjKMU3EB xcaWQgNTEwMDIgXFxkY iBPVlIgIiBDMjAwNzM0 IzP6HZb0BMMUCkXhKyJ cAWR6RoHeFEXlACi7DZ v9QHzECwY8SCR1HgX3D DBvNVU8ASqkIYa1XGWa XFxmbCBcXGYgQXJpYWw gXFxmcyAxMCBcXGZiIF exloB4UHAhRKcjeJEsE BKlWIHOsz3baAM5HZDv bVZdYZgbQO9teBNlfST tZWRpYWwgYmFzZTpcYj NgD0RcAYUuODDigMOgW D2uBFJwTQywVGccA77f ZSActD8bj6apMG13CBf aZB9xLWOvHLSrcmAbol AntPRyxKJenZS1FBDqy H4aIVQhIIZslXPpbCJw jNarXsxusBF5HNvmEdl kuB4xjZXMUCCHQuiBFp vierAcVO6NCN0NOnUFV E62MjZdSOY3THdXY0KW vRE7Cbd3ERj8bOcwJzc elfCkfZCnFpGhjT8CGI moMkdcrXC2HFqcDzowd G1gfUAJWZDBMoeNVtkq wfWrAW7HMU0GPL9QjHH rGUO4jXB6CASNEiaoqJ T6dMJ1tV72GPQdHAUop IXlCOqwN490UXOpEMrj OLHbYnL1GTWagWSzWEH 5LD6sUNYqzuyiIKRrHO RdALL2DWfdpS12bVInJ GZzMTZccGFyfXtcKlxl cFcvt3SfcGTuGBbrIYX vDIZtTPksRJEiA1SCAL OqZuXmQCfzFTCwTAy2V NekV3OXVJJkSWE8MSYd HyidYzS6JSm9SUGBOc0 oWqzqGYS6WNSqWTD6UP i6UKodgVZeSRoyUtboC FxmIEFyaWFsIFxcZnMg LOFhVGdxYkTgWS4laDg aQVX6XCDxyaraBmWyDR Kdi4NclNWkL8trdeRiR DUuIGxlZnQgbWVkaWFs QG3lXGzuIpHmO6XbEXD kEDYkkRJpFR7pOEFlBN mbDIhwN65lHHRyyO0xt 1sxFN14LXkeMY1kZYUl LCBlbnRpcmVseSBzdWJ mnRF3MQHwsJ0aPAZmYY BccHJvdGVjdHtcZmllb JE2ATxpTdsjlZ4baEQI WVBFUkxJTksgbmFtZT1 MWH3ZEoUECL55GpBwFN V1UTvYP9MJtEA3Pad4B Ot5dGhtXroqlcNwgFQu EeDeiS4HIYdnFwswsBF 8DCvnEmhjpU9cbKWCYF EZRefXSswbeoRhFV9RW X7REB5HnIKrPDY6oZZ3 FGYBLaiieGZ7hYJ7yW7 1OWEyOSAtsIZePRtrS4 04SZPtBLpqQGOpEjV5Z IVvmPGzETO0BZ6lEYCu bkajCDXvOPLtPWQ9ZJj nqZ20vFLsVATfJPGieI HxpDjiNswdrJnjk7Svq CBcXGlkIDUxMDAyIFxc HMVmW1PTTSXqGkMpNGx yGQCvHKb7SQxzD7QBVQ KtVNQ2MJNbEuh6FkG8W Yy7CGJFNj2xVrymEVF2 WJWnACJ0FMg3GNrkiGS yIFxcZmwgXFxmIEFyaW FsIFxcZnMgMTAgXFxmY hWeRB5xoQrvATG0ABVf otheKcMuOGZum6YizED dE1lshmMgBYBhBQfdXr RqdIYtkLViQWQvBNs9G GIwXGNmMCAgMSBwYWxl EKYbCYOtaGTgsoD4KKR qesDuXgqilSL8LOHmGH B5WJEuPTZryYikER70n SZbqNrdr2NgrDm9aWBe YMmbTLZjIrYaISTvi0K fN0S7LKDoFDddm3nmKG TxNUsph2HbMMzULTTCE B1OJL7oxAS7JGrQI7IO S0bGvMMaYNK0iRZ6UGH IUsphbEE6oRA7gW64KE UuPOEpaRUnGOvlE174O rk4ASKpXQukj3ppAINj REwcp9BdSYfPDCUVKI6 XSW3xyEI0JArPU4KVGE zfFTFkGdo5pIPKKYM3H YlykErvwHt9d8xwoSOu m6p7VIcxGLV5jJqajDG wfchorlUac3qftBatx5 VjdGVuZFxwYXJccGFyZ VcrnF4gYfKkh9oytPr6 PLhlpgL3LBByoy93RWw uEEAdM9CxJ1RbCFrxZB D3OAYiNhRaUKFdQK8WH mVkQNOrOVW9LaCkBJg0 VYq2ZA8RXlKsGLNsQBj 0RpF9YAUkEYi7TUmoTR 9RUQe7ZDSnHbhpDBD0M QY1VfKtZBDjNmHgYOVi IFxcZiBBcmlhbCBcXGZ zIDEwIFxcZmIgXFxuY3 4uKuEQVyrgVINpS0SwY VZtv1T6RDDqGIsjMO9o NJQ7LuXrmYwymGUxUVH pYWwgYmFzZTpcYjBcY2 JsMUGqYWHtnAInZS0eN RZsMVewLNbhD34sRXFt gA0vd6tgXP4pFYbcDC2 xIGNtLCBlbnRpcmVseS SzpKZzrBD4ZXZkbM8qH zEuICBccHJvdGVjdHtc OcwdaQT9MVpaInaraQ3 zdCBIWVBFUkxJTksgbm CaIX5YYI6BUwGOEE98M mQqAXL2Q9jYD6HPcQE2 Tii0MZn3bEokFjcozjT lxSRyVcQsxC2OTWfcUn ztgVM1DMdxBwmsbE2cp CBIWVBFUkxJTksgbmFt TP2YQG3WIP1UwEAgVOT 2iHg5CKAAUberoFI7iZ W6kD52NYMhMJIdfZAkX JgwF037ESOvFTapBLEf IuT0FVKddJSmOOT1XU8 kXHBhclxwYXJkXHNsLT R4WHquoO72eLVvRVYlO TZccGFyfXtcKlxlcGlj y1EmrDMbBJhdTJXsCKQ pVLycAWFzM7KUEXHeDv ZoTTmjALZiOKo6QBurF 7PKIBKzZEE3WVTiKsl6 AyS0BOh9ICSVIr8tBor yWLJ5UqU3VUD7JYy8UB xcdCAyIFxcZmwgXFxmI EFyaWFsIFxcZnMgMTAg GRhcCvVmZV5gjFfrIOh 7MGTyldclKjJkLXCkw8 MqpCBcP4aumlVmYMumV OAwP9t9CM5mRYabfCTq fUS0VQOxNOSuCXZqUMC wYWxlXGVuZGFzaCBncm R2PVGmcuKuSpsxiNZ5O VWhHgH0JFYjHXBkvWsd PR94oMLvwPaqh8QsiTq 0dGVkIGluIEgxLiAgXH Ivc0WzU8Q9PXRtCPewc 9tvMMPoNMhso8IsYGtH ZRHAUB4SCB1azUX1SPg ON6VVJ6xXqUCoJVG1xM v7NQMBQxppyLY1tTO7c A09DEDsAEFmbRCoDDyc J692Ibx0DTRmAYdgu9o oJNUeLNfbc1EtWTaRRI RWYK3ATK0nkOZ2DUlZN 9ZMDCnkIVXlHje1bETZ NSQ9MTdlvYtrlPe9c9r kmEFqy7w4UTinHVP1mH ztcEMmzpmhmmTic5jqh Tpwz6IywYSyEKniGVXj cXMlXKuckI0lTyLom4x jmSb0OIpecvZ2YALjpw 45ZBziHZRrH2MvN9MaI BbyMPV2ZOOjPpYcGFDv JV0KQiOjVMEdDTR6HeU vVIt7YFz4WY7RNaIuVU DbAYw6PzK8RhDgSQz0C OckUT0APGm4HZKrKSXj SyH7QFL1LzLlWPSxOnD cXGZsIFxcZiBBcmlhbC BcXGZzIDEwIFxcZmIgX DiiU85mSaCCKtikOQSm S4KlELUjv1J6STFzDSb vXN9fWWI6EbJoaAmgyE BtZWRpYWwgYXBleDpcY pUsK4TxWUMyYBVjnPTt VY8nSGNuIGypOYydG28 qQMFdiG0re1jaLM8cTG dxDG3xBKCkBEGgnjNde qRmkKArgLUxtZW3GXKr kQ3gUHHjVUSquPVtkKK yyBlvEhzieYC2QEjxPi npiE7faKTTUMFJGnoRE cweevTqKE2GOP8FXxNL VF16AhBjKXC3SDvOO2S QfSF3Prs3RHa4rRldWw fjidQzeFAaGtFwqZ1FO IqqGluytVL8IDgnIdsw wB7kxKXAPGQUMhqLNtl vjpNrKU7KLV0DFV5NgS JkEEI8tAq2ANZOHljts HT3kUM1eN83GCBjZTJg zWWqSXqwF468NYWzDNe cXJWsWoR8MYTlvVThKE I9BU0dUJYwptqpWWUgA AScZTK4BXiajZ28gXAq XGZzMTZccGFyfXtcKlx flNbfg7XnhYVnSIsbNE ZrEOEaGJabMYAcT2LKA CIgQzIwMDczNCIgOTk5 FEagE7XBJSMkDKS9GKA sIyd9ArK1FSr6NVOFHh 8gGdiqIIV7PPI2BIO3D Yv1EVdlgMKyVXrhJstz XFxmIEFyaWFsIFxcZnM sKYOsVImePxPrCG9jtL iqHDh4AXGxggywOuHpO PKwl9ZqyYHeF0yiuwJw IDEwLiByaWdodCBsYXR vdvSvKOQmy3K0XKUoSD NmMCAgMSBwYWxlXGVuZ EFfiHEdhcZ8DWFkbiWm CeecpBL3KLBwTcL0UUE eIFQftMugKI28aOSosV mhk8NikPf3rWAjUTuoH NbkBkPzVQJtg6HjA3P1 KKBaWTapp8lcVNZuSFo am0PxUOhBEFAOPM5XEA 7jpOR9BRoCE0WDB4aUl OHeMGI5dLNwwCPYIGJ0 NStqlVnwiYh6k7smmEO tc3l6YBpiTIF5gQdPb0 xmaWVsZHtcKlxmbGRpb pJ3JXyCUJSCVSgQMzDx JX9hRUaKBthIJdI3ObU yTQR8WEG6FIKNPowllZ G1pWY2kL78HDXpDNUcd ABdQPbeA431SWNpZAhh GSAaNvT1OZOflXFhGFL 0UT2kYDJwpfysRONjJV LoWAL4PCvbwG81rWLcG GZzMTZccGFyfXtcKlxl dBicz6EevXYiPEjfIYK hTWBjMShhAKFhX2MZSL RuZlJwJZheWDBhGVz3O XkxK0QQNTAnMIN4RSOe Thx9FvQ1FGi1HMXDOx9 yQmunRRJ1PhkhDOX3WA q7PBnboDRaEAanNtogY FxmIEFyaWFsIFxcZnMg PFNxCBusPjHbFA5wtIu iKAz1ZWSnrftcEzEeAF Hjd1ZmlWSiA0uqomDcT DExLiByaWdodCBsYXRl nbHtEK2rMUhbIdEhQ9L sGHFlWEHtfUMgNB5rBM YzSJkwHFdmA51gHDCcp G2br3ppLR29VKgwPB4c IGNtLCBlbnRpcmVseSB ndAJfpEA3QERmdM2hIe EuICBccHJvdGVjdHtcZ lkkaWC9BZwlGckqeF4s dCBIWVBFUkxJTksgbmF kXX5OEB7IEaMMUN72Sr BbIUA5GYQ2YPXPAaxah VE2cSH2nA68RDDoMTSt qIFxYUlmC381Qqn9XEQ cTYhdw2peIQEyIYobs8 OjUKbNYRRYHT7UGZ1ak ZJ0QPwDV0GQTBtoMARn FdsiJGyCB9TDpMA5Cyn 3PUt8oRvkSodjulWicF XsZhKwrO3otQmdkA7aE mNaNFvzSERjI3FmK4Ct bfCbeKAvAMWmcrLdd6t dPLW0AKGuxCCezUCcLh VlFvniQKR1x5ydQUKak GOxCEK4KTpthRAlUIIm MDIgXFxkYiBPVlIgIiB JMpOdJvG3IlW5SGs3DU YXQnRoQhZqFJT3FfW6H ZNhCWy2TPu0IDgVIwU1 FMX8DYR9DdblKDH8VJl eIDy3QNBcIFyvqPXvXF YgQXJpYWwgXFxmcyAxM QKvZWUoWRlengM1XACt TDpccGFyXGNmMSBQcm9 czZI8CHOyzWYxZPdpPV JaAVKtY7b4ZGuveFGhS KrzRELvhVvbAvKiG0Qn YUGsITJudTWgRZ8aUML fZIboQDpvP07cKAGedI 1lp1joWM29CVkrYL0oC GNtLCBlbnRpcmVseSBz tCZvqHW9FFHbtP6vYAR uICBccHJvdGVjdHtcZm btgBH1WWcdKdjazC8lp CBIWVBFUkxJTksgbmFt KS7HFZ6BDcBBTU85PkW wJDK4JYA6RECJRlxliH H6iHN8lY48JHCbSNOog XBaAZndN385Xvs4EKTt FQcjm4urWBAuWJvqe0U hDAiTKFLOIZ0OTA5wsI Y4PKnCD8QXLSrtWIUaH xxaKmeQN1HZbTQ2Evc2 SCa8nJneLpmrkaEvtZU jIkPcyE3orXbniW5nZm XzIEvfNGEoY4YwD1Nmz vE7b6pcjHhgg3WidYZg FS0hpLVquA== Disclaimer (test code = b1brwSGpNYNjiAZsHzR 9844) xJZDlIUUin5wqIZWeiH FuZzEwMzNcZnRuYmpcd CFiICTzKjFps3brz450 nLGxv0omBIIfIhU5zPP hJRBduGCvR648XFGnQY hvc4ung3JcTKBsfXZnv 4N1CNHJypvkeMe3yKtn O23cq6M1ZipxK8jzWZQ tFYFeO8EfEP1cQLXlWt x3DSA1NQZ5RNWlSQCiL 3VzFD8eQPGfnAFkYFl3 j1zsyJeaURGcSMN1y7b pERjawyNsVG1mlb6leZ e1k2agkoZeVDQlXCOlr ONPGAAjV0RgoIpiTt0i wHo6zMshWapmCWT0Uir 7PB7fuj40fcr3yEnmKW JhvfwoImU6TZcpUYFnj fmqKCl9KTctWBRhbYR2 YMPgrSAmI9OvKBEiVY0 rlel4PBO5COxjNSHuVh W8JEVfoMVrMRTvzGfyX Sppq516OMS5IqEcXH2c Y2Ftn8M6lL5mpCLuYGT prJDyEqPyBNHghi1hpD NiSEfpv1LoQTS3ldF8m HAluSDxZDRwQK32Wzyo g2FuZdeqOJW6WMSxyfR rw6Qtz9sgGzCtzgSrX6 qyJ2WrORIzYRYaWBPlM aAzctHxm5Vcd6RyaQMp hYa0k4msDKRuTWKcgXt ix3mpHCH9PPYbX6O0uT Qmd3gfFFakKUTreGV3i kL6NEQkpEWjI8LihF4w FHUrBH3zucw2z3bdBJX 1KLncAIFnLaC7ecR1XL BcaGVhZGVyeTcyMFxmb 279YFW6TmTtBWZnm8Gv A2SsrZivL55ybVezW51 jKWXrqZwfxX1wsGkraB 5cZjBcZnMyNFxxbFxwb ZFoittnWScvdzQ7WCmx dipcZBJpJKxsT5daXeE uGHKzxUpaIIntu9UvYM QyDKDlZpobnzV4CNEBd 33fCKXro3QvGSUgoY3v tJOfQLnukpTlnZV8OVb hdmUgYmVlbiBkZXZlbG 5lOZCjXM3nKITuwzXrh e5sfeZkZSDzVCVsK4Pv cmlzdGljcyBkZXRlcm1 lefXgCOV0WATAIG9ZQC SlXRUtg80fBOAnqMpcc M2fgJZzxvPgZFIoy7Db gO1paESZXAUiF7coFS3 kJRixx6YfsHYptCFktU X3ZNKbk2GaGbQnkaKaq YMyqOGkG8TqhSscN4kg VINxMJDyqlTkwXUmh1X eEHJmvQI7zUXtPB3JMm OIy37bKEDxEHYMghLbW XShgBayhSS6tjB9hL4h LiBJZiBhcHBsaWNhYmx rEIZcp021dj6qvuH5PF CbJPHbjcfcy1CdPQQhE JPqtJ25KSNaWLXyhd5o vfgqrLGwguDcF1Bptkv 0vP5hFCRzIVbvZGEwVX ZzMjJcbGFuZzEwMzNca GljaFxmMVxkYmNoXGYx ZLubB1hiEoGgUeSfZne wYXJ9 [facility] Glucose [id number] 01:32:16 Test Item Value Reference Interpretation Comments Range POC Glucose (test 111 mg/dL 70-99 H RN Notifie dCapillary code = 40731-5) blood sample s, e.g. obtained by fingerstick, ma y have inaccurate resu lts in patients with decreased perip heral blood flow. Met hod description: Al l results are yash sured using Electroch emistry test methodolog y. The glucose in the sample mixes with the reagents on the test strip. The reac tion produces an shanelle ctric current. The am ount of current produce d is proportional to the glucose concent ration in the blood. PO Sample Type (test Capillary code = 9554) Performing Lab (test [facility] Main Main [facility] code = 50266) [facility] MD [facility], [address] [place] [address] [phone]; Front End Loader Driver: Sydnee Velazco MD Lab Interpretation Abnormal (test code = 03474-1) MD ReeseCOVID-19 (SARS-CoV-2) PCR-Asymptomatic [id number] 00:44:01 Test Item Value Reference Range Interpretation Comments COVID19 (SARS Not Detected Not Detected This test is a CoV-2) Result qualitative (test code = reverse-transcr iptase 48038-2) polymerase angella n reaction (RT-PC R) developed for t he Kristian SHAUNA 680 0 system and inte nded for the detecti on of SARS CoV-2 RNA in human nasophary ngeal specimens from patients who me et COVID-19 clinic al and/or epidemiological criteria. This assay has been approv ed by the FDA for use only under Emergency Use Authorization ( EUA) in laboratories that have been CLIA-certified to perform moderate-comple xity and high-comple xity tests. The performance characteristics of this assay were verified by the Microbiology Laboratory at [facility], CLIA Accreditation # : [id number] and CAP Accreditation # : [id number]. Result s must be interpreted within the context of all relevant clinic al and laboratory find ings and should not form the sole basis for a diagnosis or treatment decis ion. "Presumptive Positive" resul ts are due to partial amplification o f SARS-CoV-2 targ ets and indicates l ow amounts of viru s present in the specimen at or near the limit of detection. Regardless, individuals wit h "Presumptive Positive" resul ts should be manag ed per institutional guidelines as individuals pos itive for SARS-CoV-2 virus, including use o f appropriate inf ection control protoco ls. Internal contro ls are included to ass ess for possible amplification inhibitors. If inhibition is detected, testi ng is repeated and if inhibition is confirmed the specimen is res ulted as "Invalid". W hen an "Invalid" resul t occur, it is recommended to wait 3 days before submitting a ne w specimen for te sting if clinically indicated. COVID19 SARS RATE SETTER Swab Source (test code = 58133) COVID19 SARS Pre-OR Procedure Indication (test code = 42674) MD ReeseTMP Interpretation Antibody Screen [id number] 20:58:16 Test Item Value Reference Range Interpretation Comments TMP Auto Neg At the present ABSC Interp time, patient (test code = plasma shows no FE RNANDO 7535) evidence of RBC Padilla CISNEROS tated by: alloantibodies. Humberto STYLES ed Date/Time: 10.13 15:58 PM CDT Transcribed Date/Time: 10.13 15:58 PM CDTElectronical ly Signed By: RONY CISNEROS, on 10.28.2020 15:5 8 PM MD [id number] 16:01:19 Test Item Value Reference Range Interpretation Comments ABORh. (test code = 882-1) O POS MD ReeseClhilda Expiration [id number] 16:01:02 Test Item Value Reference Range Interpretation Comments T & S Expiration (test code = 10/31/2020 5318) MD ReeseAntibody [id number] 16:00:14 Test Item Value Reference Range Interpretation Comments ABSC. (test code = 890-4) Negative ABSC MD ReeseConfirm [id number] 15:58:14 Test Item Value Reference Range Interpretation Comments ABORh Confirm. (test code = 882-1) O POS MD ReeseHemoglobin [id number] 15:05:29 Test Item Value Reference Range Interpretation Comments A1C (test code = 5.2 % 4.3-5.6 HbA1c value s >=6.5% are 4632) diagnostic of d iabetes mellitus.Diagno sis should be confirmed by repeat testing.Therape utic Action suggested: >8.0 % HbA1c; Goal oftherapy: <7.0% HbA1c MD ReeseG [id number] 15:04:26 Test Item Value Reference Range Interpretation Comments UA Color (test code Yellow Straw-Yellow = 7877) UA Appear (test code Clear Clear = 7868) UA Glucose (test NEG NEG mg/dL code = 7881) UA Bili (test code = NEG NEG 7871) UA Ketones (test NEG NEG mg/dL code = 7884) UA Spec Grav (test 1.025 1.003-1.035 code = 7894) UA Blood (test code NEG NEG = 7872) UA pH (test code = 7.0 5.0-9.0 7909) UA Protein (test NEG NEG mg/dL code = 7890) UA Urobilinogen NEG NEG (test code = 7903) UA Nitrite (test NEG NEG code = 7888) UA Leuk Est (test NEG NEG code = 7886) UA Comment (test See Comment No microsco pic exam code = 8512) performed, physiochemical findings are ne dario ReeseFractionated [id number] 14:59:03 Test Item Value Reference Range Interpretation Comments Bili Total (test 0.5 mg/dL See_Comment Indocyanine Green (ICG) code = 5096) may cause false ly elevated biliru bin results. Total and direct bilirubin must not be measured from s amples containing indo cyanine green. False el evation of total bilirubin can be seen in patient s with IgG concentrations above 28 g/L.Testing Per formed at [facility] Lab Ambulat or Care Bldg, [address], [address], [place] [address] [Automat ed message] The sy stem which generated this result transmitted ref erence range: <=1.2. T he reference range was not used to interpr et this result as normal/abnormal . Bili Direct (test <0.2 See_Comment Indocyanin e Green (ICG) code = 5094) may cause false ly elevated biliru bin results. Total and direct bilirubin must not be measured from s amples containing indo cyanine green. Testing Performed at [facility] Lab [facility], [address], [address], [place] [address] [Auto mated message] The sy stem which generated this result transmitted ref erence range: <=0.3 mg /dL. The reference range was not used to interpr et this result as normal/abnormal . Bili Indirect (test See Note 0.0-0.9 Unable t o calculate code = 5095) Indirect Biliru bin result due to some par ameters are outside rep ortable rangeTesting Pe rformed at [facility], [address], [address], [place] [address] MD ReeseGlomerular Filtration [id number] 14:59:02 Test Item Value Reference Range Interpretation Comments eGFR-AA (test code 128 See_Comment Normal eG FR >= 60 mL/min/1.73 = 8062) m2 Note: The eG FR is calculated usin g the CKD-EPI equation. The e GFR declines with age. eGFR <60 mL/min/1.73 m2 is considered as "decreased". This equation should only be used for patients 18 and older. According to th e National Kid[employer] on's Kidney Disease Outcome Quality Initiative (KDO QI) classification and 2012 Kidney Disease Improving Global Outcomes (KDIGO) Clinical Practi ce Guideline, the stage of CK D should be categorized bas ed on estimated GFR. Stage Description GFR mL/min/1.73 m21 Normal or high GFR >=902 Mildly decrease d GFR 60-893a M ildly to moderately decr eased GFR 45-593b Moderat edis to severely decrea sed GFR 30-444 Severely decreased GFR 15-295 Kid chivo failure <15 Testing Performed at [facility] Lab [facility], [address], [place], [place] [address] [Automated message] The sy stem which generated this result transmitted ref erence range: >=60 mL/min/1.7 3 sq. m. The reference range was not used to interpret th is result as normal/abnormal . eGFR-FIORELLA (test code 111 See_Comment Normal e GFR >= 60 mL/min/1.73 = 8063) m2 Note: The eG FR is calculated usin g the CKD-EPI equation. The e GFR declines with age. eGFR <60 mL/min/1.73 m2 is considered as "decreased". This equation should only be used for patients 18 and older. According to e National [employer] on's Kidney Disease Outcome Quality Initiative (KDO QI) classification and 2012 Kidney Disease Improving Global Outcomes (KDIGO) Clinical Practi ce Guideline, the stage of CK D should be categorized bas ed on estimated GFR. Stage Description GFR mL/min/1.73 m21 Normal or high GFR >=902 Mildly decrease d GFR 60-893a M ildly to moderately decr eased GFR 45-593b Moderat edis to severely decrea sed GFR 30-444 Severely decreased GFR 15-295 Kid chivo failure <15 Testing Performed at [facility] Lab [facility], [address], [place], [place] [address] [Automated message] The sy stem which generated this result transmitted ref erence range: >=60 mL/min/1.7 3 sq. m. The reference range was not used to interpret th is result as normal/abnormal . MD ReeseToluz elena [id number] 14:59:01 Test Item Value Reference Range Interpretation Comments Total Protein (test 7.1 g/dL 6.4-8.3 Testing Performed at [facility] code = 7649) [facility], [address], [place] [address] MD ReeseCalcium [id number] 14:59:00 Test Item Value Reference Range Interpretation Comments Calcium Lvl (test 9.7 mg/dL 8.4-10.2 Testing Pe rformed at code = 5258) [facility] Lab Ambulat [facility], [address], [place], [place] [address] MD ReeseAlkaline [id number] 14:58:59 Test Item Value Reference Range Interpretation Comments Alk Phos (test code = 55 U/L 40-129 Testin g Performed at [facility] 4768) Lab Career Coordinator [facility], [address], [place] [address] MD ReeseAlbumin [id number] 14:58:58 Test Item Value Reference Range Interpretation Comments Albumin Lvl (test code 4.6 See_Comment Testi ng Performed at [facility] = 4763) Lab [facility] Coordinator [facility], [address], [place] [address] [Automated mess age] The system which ge nerated this result tra nsmitted reference range : 3.5 - 5.2 gm/dL. The refe rence range was not used to interpret this result as normal/abnormal . MD ReeseAspartate [id number] 14:58:56 Test Item Value Reference Range Interpretation Comments AST (test code = 21 U/L See_Comment Testing Per formed at [facility] 4731) Lab Career Coordinator [facility], [address], [place] [address] [Automated mess age] The system which ge nerated this result transmit reyes reference range : <=40. The reference range was not used to interpr et this result as jaqueline l/abnormal. MD [id number] 14:58:55 Test Item Value Reference Range Interpretation Comments ALT (test code = 30 U/L See_Comment Testing Per formed at [facility] 4705) Lab Career Coordinator [facility], [address], [place] [address] [Automated mess age] The system which ge nerated this result transmit reyes reference range : <=41. The reference range was not used to interpr et this result as jaqueline l/abnormal. MD ReeseElectrolyte [id number] 14:58:54 Test Item Value Reference Range Interpretation Comments Sodium Lvl (test code = 139 See_Comment Test ing Performed at 7355) [facility] Ambulat or[facility], [address], [place] [address] [Automate d message] The sy stem which generated this result transmit reyes reference range : 136 - 145 mEq/L. Th e reference range was not used to int erpret this result as normal/abnormal . Potassium Lvl (test code 4.3 See_Comment Zoey elizabetg Performed at = 6840) [facility], [address], [place] [address] [Automate d message] The sy stem which generated this result transmit reyes reference range : 3.5 - 5.1 mEq/L. Th e reference range was not used to int erpret this result as normal/abnormal . Chloride (test code = 101 See_Comment Testin g Performed at 5279) [facility], [address], [place] [address] [Automate d message] The sy stem which generated this result transmit reyes reference range : 98 - 107 mEq/L. The reference range was not used to int erpret this result as normal/abnormal . CO2 (test code = 5227) 30 See_Comment H Testi ng Performed at [facility] Lab [facility], [address], [place] [address] [Automate d message] The sy stem which generated this result transmit reyes reference range : 22 - 29 mEq/L. The reference range was not used to int erpret this result as normal/abnormal . Anion Gap (test code = 8 See_Comment Testi ng Performed at 9325) [facility] Lab Ambulat [facility], [address], [place] [address] [Automate d message] The sy stem which generated this result transmit reyes reference range : 4 - 14 mEq/L. The reference range was not used to int erpret this result as normal/abnormal . Lab Interpretation (test Abnormal code = 73475-5) MD Reese.Serum [id number] 14:58:53 Test Item Value Reference Range Interpretation Comments Creatinine (test code 0.87 mg/dL 0.67-1.17 Testin g Performed at = 5399) [facility] Lab Ambulat [facility], [address], [address], [place] [address] MD [id number] 14:58:52 Test Item Value Reference Range Interpretation Comments BUN (test code = 12 mg/dL 6-23 Testing Per formed at [facility] 5055) Lab [facility], [address], [place] [address] MD ReeseGlucose [id number] 14:58:50 Test Item Value Reference Range Interpretation Comments Glucose Level (test 88 mg/dL 70-99 Effectiv e 11/09/15, the code = 5699) glucose referen ce intervals have been updated based o n [employer] amrik delines (Standards of M edical Care in Diabete s 2016. Diabetes Care 2 016; 39: S13-S22).Fastin g blood glucose:Normal: 70-99 mg/dLImpaired f asting glucose (increa sed risk for diabetes or pre-diabetes): 100-125 mg/dLDiabetes m ellitus: >/=126 mg/dLRan dom blood glucose:Normal: 70-199 mg/dLNote: [facility] om glucose >100 mg /dL is associated with increased risk for diabetes Testin g Performed at [facility] Lab [facility]inator [facility], [address], [place] [address] MD R[id number] 14:34:55 Test Item Value Reference Range Interpretation Comments Neutrophil % (test code 54.0 % 42.0-66.0 As p art of = 6491) Differential performed at [facility] Coordinator [facility], [address], [address], [place] [address] Lymphocyte % (test code 34.4 % 24.0-44.0 = 6194) Monocyte % (test code = 8.9 % 2.0-7.0 H 6422) Eosinophil % (test code 1.9 % 1.0-4.0 = 5520) Basophil % (test code = 0.4 % 0.0-1.0 5068) IGRE % (test code = 0.4 % 0.0-0.4 IGRE % c ount includes 5958) Metamyelocytes, Myelocytes, and Promyelocytes. As part of Differe ntial performed at [facility] Lab [facility] Coordinator [facility], [address], [place] [address] Neutrophil Abs (test 2.77 K/uL 1.70-7.30 code = 6492) Lymphocyte Abs (test 1.77 K/uL 1.00-4.80 code = 6195) Monocyte Abs (test code 0.46 K/uL 0.08-0.70 = 6423) Eosinophil Abs (test 0.10 K/uL 0.04-0.40 code = 5521) Basophil Abs (test code 0.02 K/uL 0.00-0.10 = 5069) IG Abs (test code = 0.02 K/uL 0.00-0.04 5954) Lab Interpretation Abnormal (test code = 61314-4) MD Reese.[id number] 14:34:52 Test Item Value Reference Range Interpretation Comments WBC (test code = 8034) 5.1 K/uL 4.0-11.0 RBC (test code = 6932) 5.17 See_Comment [Aut omated message] The system [employer] generated this result transmitted ref erence range: 4.50 - 6 .00 M/uL. The refer ence range was not u sed to interpret this result as normal/abnor mal. Hgb (test code = 5898) 16.2 See_Comment As pa rt of CBC or as an individual orderable testi ng performed at [facility] Lab Career Coordinator [facility], [address], [place] [address] [Automate d message] The sy stem which generated this result transmit reyes reference range : 14.0 - 18.0 gm/dL. T he reference range was not used to int erpret this result as normal/abnormal . Hct (test code = 5860) 47.7 % 40.0-54.0 As pa rt of CBC or as an individual orderable testi ng performed at [facility] Lab Career Coordinator [facility], [address], [place] [address] MCV (test code = 6222) 92 fL 82-98 MCH (test code = 6220) 31.3 pg 27.0-31.0 H MCHC (test code = 6221) 34.0 See_Comment [Au tomated message] The system [employer] generated this result transmitted ref erence range: 31.0 - 3 6.0 gm/dL. The refe rence range was not u sed to interpret this result as normal/abnor mal. RDW-SD (test code = 41.0 fL 35.1-46.3 6972) RDW-CV (test code = 12.0 % 12.0-15.5 6971) Platelet count (test 217 K/uL 140-440 As part of CBC or as code = 6832) an individual orderable testi ng performed at [facility], [address], [place] [place] [address] MPV (test code = 6282) 9.0 fL 4.0-10.4 INRBC (test code = 0.0 % See_Comment The INRBC (instrument 5974) NRBC) value ref lects the enumeration of nucleated red b lood cells contained in a 200uL sampleof whole blood analyzed by the instrument. Thi s value maydiffer from the NRBC value repo rted in a manual differential,wh ich is based on a 100 cell differential. A s part of CBC testing performed at [facility] Career Coordinator [address] [facility], [address], [place], [place] [address] [Automated mess age] The system [employer] generated this result transmitted ref erence range: <=0.0. T he reference range was not used to int erpret this result as normal/abnormal . Lab Interpretation Abnormal (test code = 36407-5) MD [id number] 18:26:10 Test Item Value Reference Range Interpretation Comments PSA (test code = 1.2 ng/mL 0.0-4.0 Results gre ater than 6743) 4519 ng/mL may not be reliable due to matrix effect with ext ended dilution as it exceeds the manufacture r's recommended lozano it. Caution should be exercised when interpreting cifuentes ch values and done in conjunction wit h clinical context.Testing Performed at [facility], [address], [address], [facility] [place] [address] PSA Indication (test Diagnostic code = 9395) MD ReeseVITAMIN B1 (THIAMINE)2019-04-27 15:58:00 Test Item Value Reference Range Interpretation Comments VITAMIN B1 102.2 nmol/L 66.5-200.0 [facility] ([facility]) (test [facility] code = VITB1) [address] [id number] Dudley MD Ph:[phone] VITAMIN D 1,73-[id number] 14:09:00 Test Item Value Reference Range Interpretation Comments VITAMIN D 25.4 pg/mL 19.9-79.3 Performed At: B N 1,25-DIHYDROXY (test [place] [address] code = YUXR439) [place], [place] [id number] angelina Dudley MD Ph:[phone] IMMUNOGLOBULIN G [id number] 06:09:00 Test Item Value Reference Range Interpretation Comments IMMUNOGLOBULIN G SUBCLASS 451 mg/dL 248-810 1 (test code = IGG1) IMMUNOGLOBULIN G SUBCLASS 422 mg/dL 130-555 2 (test code = IGG2) IMMUNOGLOBULIN G SUBCLASS 79 mg/dL 15-102 3 (test code = IGG3) IMMUNOGLOBULIN G SUBCLASS 30 mg/dL 2-96 Pe rformed At: 4 (test code = IGG4) [facility] [id number] Kyle L MD Ph:[phone] rfor med At: [facility] or[address] [id number] Dudley MD Ph:[phone] IGG SUBCLASSES TOTAL 993 mg/dL 700-1600 (test code = IGGT) SURGICAL [id number] 14:14:00 RUN DATE: 04/22/19 [facility] - LAB PAGE 1 RUN TIME: 1414 Specimen Inquiry RUN USER: INTERFACE PATIENT: MARIA VICTORIA WOOD LOC: TanvirS BELINDA Carranza U #: [id number] AGE/SX: 34/M ROOM: [facility] RE04/16/19REG DR: Cristian Gudino MD : 84 BED: 1 DIS: STATUS: ADM IN TLOC: SPEC #: [id number] RECD: 04/21/19 STATUS: AG REQ #: [id number] SAMI: 04/21/19 [facility] DR: Cristian Gudino MD ENTERED: 04/21/19 SP TYPE: SURG OTHR DR: Self Referred Dmitry Cadet MD,Peterson Finney,Joan Cifuentes Jr, MD,Clarisse Puentes MD No Primary [...] SIGNATURE ON FILE Janessa Tellez MD 04/22/19 8299 END OF REPORT VITAMIN [id number] 04:43:00 Test Item Value Reference Range Interpretation Comments VITAMIN B12 (test code = VITB12) 1015 PG/ML 211-946 H [id number] 04:25:00 Test Item Value Reference Range Interpretation Comments AMYLASE (test code = ADINA) 52 U/L 0-100 N [id number] 04:24:00 Test Item Value Reference Range Interpretation Comments LIPASE (test code = LIP) 88 U/L 0-190 N BASIC METABOLIC [id number] 04:24:00 Test Item Value Reference Range Interpretation [...] mg/dL 8.8-10.2 L = CA) CBC W/AUTO [id number] 04:08:00 Test Item Value Reference Range Interpretation [...] 3/uL 0.0-0.20 N - MRI L-SPINE W/O [id number] 19:29:00Patient Name: MARIA VICTORIA WOOD Unit No: [id number] EXAMS: CPT CODE: [id number] MRI L-SPINE W/O CONT 06635 Dictation location: [facility]. MRI LUMBAR SPINE WITHOUT CONTRAST. HISTORY: [...] mild spinal canal stenosis and neuroforaminal narrowing. [id number] Reported and signed by: YISSEL RUST M.D. Name: MARIA VICTORIA WOOD [facility] Phys: Joan De La O [address] : 1985 Age: 34 Sex: [place] [address] Loc: P.0732 1 Exam Date: 0 04/21/2019 Status: ADM IN PH: FAX: PAGE 1 Signed Report (CONTINUED) Patient Name: MARIA VICTORIA WOOD Unit No: [id number] EXAMS: CPT CODE: [id number] MRI L-SPINEW/O CONT 40763 <Continued> CC: Myles Pike DO; No Primary Care Physician; Cristian dowell MD Technologist: Yang Babin) Trscr Dt/Tm: 04/21/2019 (1928) by:[email or web address] Printed Date/Time: 04/21/2019 (1931) Name: MARIA VICTORIA WOOD [facility] Phys: MIRI - Glendy,Joan [address] : Age: 34 Sex: [place] [address] Loc: P.23867 Exam Date: 04/21/2019 Status: ADM IN PH: FAX: PAGE 2 Signed ReportLIVER FUNCTION [id number] 04:30:00 Test Item Value Reference Range Interpretation [...] code = 68 U/L 45-120 N ALKP) [id number] 04:29:00 Test Item Value Reference Range Interpretation Comments PREALBUMIN (test code = PREALB) 13.1 MG/ML 15-42 L BASIC METABOLIC [id number] 04:27:00 Test Item Value Reference Range Interpretation [...] mg/dL 8.8-10.2 L = CA) CBC W/AUTO [id number] 04:22:00 Test Item Value Reference Range Interpretation [...] 3/uL 0.0-0.20 N - XR UGI W/O [id number] 12:16:00Patient Name: MARIA VICTORIA WOOD Unit No: [id number] EXAMS: CPT CODE: [id number] XR UGI W/O KUB 27834 Single contrast upper GI 04/20/2019 CLINICAL INDICATION: [...] MARISA MARCOS M.D. CC: Dmitry Cadet MD; Andrés Villegas MD; No Primary Care Physician Technologist: Jeremiah Hdz Fluoro Time: DAP (Gy m2): Air Kerma (mGy): Trscr Dt/Tm: 04/20/2019 (1216) by:[email or web address] Printed Date/Time: 04/20/2019 (1219) Name: MARIA VICTORIA WOOD [facility] Phys: Dmitry Andrade MD [address] : 1985 Age: 34 Sex: [place] [address] Loc: P.0732 1 Exam Date: 04/20/2019 Status: ADM IN PH: FAX: PAGE 1 Signed Report- XR SMALL [id number] 12:15:00Patient Name: MARIA VICTORIA WOOD Unit No: [id number] EXAMS: CPT CODE: [id number] XR SMALL BOWEL 92791 Small bowel series 5 views 04/20/2019 INDICATION: [...] and signed by: MARISA MARCOS M.D. CC: Andrés Villegas MD; No Primary Care Physician; Veto Rogers MD Technologist: Jeremiah Hdz Fluoro Time: DAP (Gy m2): Air Kerma (mGy):Trscr Dt/Tm: 04/20/2019 (1215) by:[email or web address] Printed Date/Time: 04/20/2019 (1218) Name: MARIA VICTORIA WOOD [facility] Phys: Veto Villa MD [address] : 1985 Age: 34 Sex: [place] [address] Loc: P.0732 1 Exam Date: 04/20/2019 Status: ADM IN PH: FAX: PAGE 1 Signed ReportCOMPREHENSIVE METABOLIC [id number] 06:07:00 Test Item Value Reference Range Interpretation [...] 45-120 N PHOSPHATASE (test code = ALKP) [id number] 05:38:00 Test Item Value Reference Range Interpretation Comments LIPASE (test code = LIP) 114 U/L 0-190 N CBC W/AUTO [id number] 04:59:00 Test Item Value Reference Range Interpretation [...] 3/uL 0.0-0.20 N - XR FLUOROSCOPY 0-60 [id number] 16:28:00Patient Name: MARIA VICTORIA WOOD Unit No: [id number] EXAMS: CPT CODE: [id number] XR FLUOROSCOPY 0-60 MIN 28321 C3 TIME OF STUDY: 04/17/2019 1:00 PM REASON FOR EXAM:ERCP COMPARISON: MRCP 04/04/2019 FINDINGS: 18 coned-down intraoperative fluoroscopic views of the abdomen demonstrate postoperative changes of ERCP The soft tissues and osseous structures are suboptimally evaluated secondary to fluoroscopic technique. Total milligray (mGy) dosage: 5.9 IMPRESSION: Intraoperative fluoroscopic views of ERCP. Please see operative report. at 1628 Reported and signed by: DANY DAVIS M.D. CC: Andrés Villegas MD; No Primary Care Physician Technologist: GERSON FONTANA RT(R) Fluoro Time: DAP (Gy m2): Air Kerma (mGy): Trscr Dt/Tm: 04/17/2019 (2114) by:[email or web address] Printed Date/Time: 04/17/2019 (4179) Name: MARIA VICTORIA WOOD [facility] Phys: Andrés Juarez MD [address] : 1985 Age: 34 Sex: [place] [address] Loc: P.0732 1 Exam Date: 04/17/2019 Status: ADM IN PH: FAX: PAGE 1 Signed Report- US GUIDANCE [facility] [id number] 16:34:00Patient Name: MARIA VICTORIA WOOD Unit No: [id number] EXAMS: CPT CODE: [id number] US GUIDANCE VASC ACCESS 01011 C3 PICC PLACEMENT UNDER ULTRASOUND FLUORO DATE [...] br achial vein. Name: MARIA VICTORIA WOOD [facility] Phys: Dmitry Andrade MD [address] : 1985 Age: 34 Sex: [place] [address] Loc: P.0732 1 Exam Date: 04/16/2019 Status: ADM IN PH: FAX: PAGE 1 Signed Report (CONTINUED) Patient Name: MARIA VICTORIA WOOD Unit No: [id number] EXAMS: CPT CODE: [id number] US GUIDANCE VASC ACCESS 50763 <Continued> at 1634 Reported and signed by: DANY DAVIS M.D. CC: Dmitry Cadet MD; Andrés Villegas MD; No Primary Care Physician Technologist: Izaiah Gilmore; Nelson Srinivasan (R),(CT),() Fluoro Time: DAP (Gy m2): Air Kerma (mGy): Trscr Dt/Tm: 04/16/2019 (6826) by:[email or web address] Printed Date/Time: 04/16/2019 (9553) Name: MARIA VICTORIA WOOD [facility] Phys: Dmitry Andrade MD [address] : 1985 Age: 34 Sex: [place] [address] Loc: P.0732 1 Exam Date: 04/16/2019 Status: ADM IN PH: FAX: PAGE 2 Signed Report- FLUORO GUID CTRL ACC [id number] 16:34:00Patient Name: MARIA VICTORIA WOOD Unit No: [id number] EXAMS: CPT CODE: [id number] FLUORO GUID CTRL ACC DEV 25034 C3 PICC PLACEMENT UNDER ULTRASOUND FLUORO DATE [...] right brachial vein. [facility]: Dmit[facility] And[facility] [address] : 1 06/03/1984 Age: 34 Sex: M [place] [id number] Loc: P.0732 1 Exam Date: 04/16/2019 Status: ADM IN PH: FAX: PAGE 1 Signed Report (CONTINUED) Patient Name: MARIA VICTORIA WOOD Unit No: [id number] EXAMS: CPT CODE: [id number] FLUORO GUID CTRL ACC DEV 55878 <Continued> at 1634 Reported and signed by: DANY DAVIS M.D. CC: Dmitry Cadet MD; Andrés Villegas MD; No Primary Care Physician Technologist: Izaiah Gilmore; Nelson Srinivasan (R),(CT),() Fluoro Time: DAP (Gy m2): Air Kerma (mGy): Trscr Dt/Tm: 04/16/2019 (1634) by:[email or web address] Printed Date/Time: 04/16/2019 (1637) Name: MARIA VICTORIA WOOD [facility] Phys: Dmitry Andrade MD [address] : 1985 Age: 34 Sex: M [place] [address] Loc: P.0732 1 Exam Date: 04/16/2019 Status: ADM IN PH: FAX: PAGE 2 Signed ReportLIVER FUNCTION [id number] 12:14:00 Test Item Value Reference Range Interpretation [...] = 62 U/L 45-120 N ALKP) PROTHROMBIN [id number] 11:57:00 Test Item Value Reference Range Interpretation [...] t valves; 2.5-3.5recurren t systemic emboli sm. [id number] 11:56:00 Test Item Value Reference Range Interpretation Comments LIPASE (test code = LIP) 110 U/L 0-190 N THROMBOPLASTIN TIME [id number] 11:45:00 Test Item Value Reference Range Interpretation Comments THROMBOPLASTIN TIME 36.0 SECONDS 26.0-35.9 H INTERPRE TATIVE PARTIAL (test code = DATA: erapeutic PTT) range: Unfractionated heparin:47 - 71 seconds Argatroban:1.5 to 3 times the basel ine PTT - MRI [id number] 17:06:00Patient Name: MARIA VICTORIA WOOD Unit No: [id number] EXAMS: CPT CODE: [id number] MRI MRCP 08928 Location code:R 16 MRI Abdomen without Contrast [...] DO; No Primary Care Physician Technologist: Yang Babin (Dimas) Trscr Dt/Tm: 04/14/2019 (1703) by:Keshia Printed Date/Time: 04/14/2019 (5694) Name: ISRAELMARIA VICTOR[facility] Phys: Peterson Garrett DO [address] : 1985 Age: 34 Sex: [place] [address] Loc: P.ERMS 1 Exam Date: 04/14/2019 Status:ADM IN PH: FAX: PAGE 1 Signed ReportLIVER FUNCTION [id number] 13:42:00 Test Item Value Reference Range Interpretation [...] code = 77 U/L 45-120 N ALKP) [id number] 13:42:00 Test Item Value Reference Range Interpretation Comments LIPASE (test code = LIP) 249 U/L 0-190 H UA RFLX MICR CULT IF [id number] 13:34:00 Test Item Value Reference Range Interpretation [...] LEUU) Indication for culture: Suprapubic PainCBC W/AUTO [id number] 13:34:00 Test Item Value Reference Range Interpretation [...] 0.04 x10 3/uL 0.0-0.20 N LACTIC ACID [id number] 12:27:00 Test Item Value Reference Range Interpretation Comments LACTIC ACID POC (test code = 1.82 mmol/L 0.9-1.70 H LACTP) CHEMISTRY 8 [id number] 12:08:00 Test Item Value Reference Range Interpretation [...] 70-162 N code = GFRP) CHEMISTRY 8 [id number] 12:08:00 Test Item Value Reference Range Interpretation [...] 70-162 N (test code = GFRP) SURGICAL [id number] 16:19:00 RUN DATE: 04/06/19 [facility] - LAB PAGE 1 RUN TIME: 1619 Specimen Inquiry RUN USER: INTERFACE PATIENT: MARIA VICTORIA WOOD LOC: PChristelle7S POD C U #: [id number] AGE/SX: 34/M ROOM: [facility] RE03/23/19REG DR: Cristian Gudino MD : [birth year] BED: 1 DIS: 04/04/19 STATUS: DIS IN TLOC: SPEC #: [id number] RECD: 04/03/19 STATUS: AG RELaurent #: [id number] SAMI: 04/03/[address]: Cristian Gudino MD ENTERED: 04/03/19 SP TYPE: SURG OTHR DR: Self Referred Dmitry Cadet MD, Patricia MD Mantena,Clarisse Zuniga MD Primary Care PhysicianORDERED: PATHGM4, PATH SPEC, H [...] mm. Entirely submitted in a single cassette. TYRESE/nia MICROSCOPIC DESCRIPTION Microscopic performed. Signed SIGNATURE ON FILE Xochitl Davila MD 04/06/19 1619 ------- ----- END OF REPORT [id number] 00:26:00 Test Item Value Reference Range Interpretation Comments GLUBED (test code = GLUBED) 99 MG/DL 70-105 N [id number] 16:45:00 Test Item Value Reference Range Interpretation Comments GLUBED (test code = GLUBED) 109 MG/DL 70-105 H BASIC METABOLIC [id number] 06:21:00 Test Item Value Reference Range Interpretation [...] code 9.0 mg/dL 8.8-10.2 N = CA) [id number] 00:08:00 Test Item Value Reference Range Interpretation Comments GLUBED (test code = GLUBED) 118 MG/DL 70-105 H [id number] 11:58:00 Test Item Value Reference Range Interpretation Comments GLUBED (test code = GLUBED) 120 MG/DL 70-105 H BASIC METABOLIC [id number] 06:03:00 Test Item Value Reference Range Interpretation [...] code 9.1 mg/dL 8.8-10.2 N = CA) [id number] 01:38:00 Test Item Value Reference Range Interpretation Comments GLUBED (test code = GLUBED) 101 MG/DL 70-105 N [id number] 15:31:00 Test Item Value Reference Range Interpretation Comments GLUBED (test code = GLUBED) 113 MG/DL 70-105 H [id number] 13:36:00 Test Item Value Reference Range Interpretation Comments GLUBED (test code = GLUBED) 113 MG/DL 70-105 H SURGICAL [id number] 10:43:00 RUN DATE: 04/01/19 [facility] - LAB PAGE 1 RUN TIME: 1043 Specimen Inquiry RUN USER: INTERFACE PATIENT: MARIA VICTORIA WOOD LOC: Tanvir BELINDA Carranza U #: [id number] AGE/SX: 33/M ROOM: [facility] RE03/23/19REG DR: Cristian Gudino MD : 83 BED: 1 DIS: STATUS: ADM IN TLOC: SPEC #: [id number] RECD: 03/30/19 STATUS: AG REQ #: [id number] SAMI: 03/30/19 [facility] DR: Cristian Gudino MD ENTERED: 03/30/19 SP [...] and a separate piece of firm nodular yellow-rogers tissue which measures 1.5 x 1.5 x 1 cm. The nodular piece is sectioned and has the gross appearance of fat necrosis. [employer] sections are submitted as follows: A1, digital media representative sections of nodule; A2, digital media representative sections of separate piece of adipose tissue. RAB/eb MICROSCOPIC DESCRIPTION Microscopic performed.---- -------- Signed SIGNATURE ON Janessa Vasquez MD 04/01/19 1043 END OF REPORT [id number] 08:44:00 Test Item Value Reference Range Interpretation Comments GLUBED (test code = GLUBED) 113 MG/DL 70-105 H BASIC METABOLIC [id number] 05:49:00 Test Item Value Reference Range Interpretation [...] code 9.2 mg/dL 8.8-10.2 N = CA) [id number] 05:49:00 Test Item Value Reference Range Interpretation Comments PHOSPHOROUS (test code = PHOS) 3.2 mg/dL 2.7-4.5 N [id number] 05:49:00 Test Item Value Reference Range Interpretation Comments MAGNESIUM (test code = MAG) 1.7 mg/dL 1.4-2.6 N [id number] 02:06:00 Test Item Value Reference Range Interpretation Comments GLUBED (test code = GLUBED) 125 MG/DL 70-105 H [id number] 11:35:00 Test Item Value Reference Range Interpretation Comments GLUBED (test code = GLUBED) 104 MG/DL 70-105 N [id number] 07:50:00 Test Item Value Reference Range Interpretation Comments GLUBED (test code = GLUBED) 95 MG/DL 70-105 N [id number] 05:54:00 Test Item Value Reference Range Interpretation Comments GLUBED (test code = GLUBED) 102 MG/DL 70-105 N [id number] 23:50:00 Test Item Value Reference Range Interpretation Comments GLUBED (test code = GLUBED) 101 MG/DL 70-105 N SURGICAL [id number] 11:50:00 RUN DATE: 03/30/19 [facility] - LAB PAGE 1 RUN TIME: 1150 Specimen Inquiry RUN USER: INTERFACE PATIENT: MARIA VICTORIA WOOD LOC: [facility] POD C U #: [id number] AGE/SX: 33/M ROOM: [facility] RE03/23/19REG DR: Cristian Gudino MD : 83 BED: 1 DIS: STATUS: ADM IN TLOC: SPEC #: [id number] RECD: 03/26/19 STATUS: SOUT REQ #: [id number] SAMI: 03/25/19 [facility] DR: Cristian Gudino MD ENTERED: 03/26/19 SP [...] SIGNATURE ON FILE Janessa Tellez MD 03/30/19 1150 END OF REPORT BASIC METABOLIC [id number] 04:18:00 Test Item Value Reference Range Interpretation [...] code 9.5 mg/dL 8.8-10.2 N = CA) [id number] 04:18:00 Test Item Value Reference Range Interpretation Comments PHOSPHOROUS (test code = PHOS) 3.7 mg/dL 2.7-4.5 N [id number] 04:18:00 Test Item Value Reference Range Interpretation Comments MAGNESIUM (test code = MAG) 1.6 mg/dL 1.4-2.6 N [id number] 07:07:00 Test Item Value Reference Range Interpretation Comments PHOSPHOROUS (test code = PHOS) 3.9 mg/dL 2.7-4.5 N [id number] 07:07:00 Test Item Value Reference Range Interpretation Comments TRIGLYCERIDES (test code = TRIG) 142 mg/dL 35-160 N [id number] 07:07:00 Test Item Value Reference Range Interpretation Comments MAGNESIUM (test code = MAG) 1.7 mg/dL 1.4-2.6 N [id number] 07:07:00 Test Item Value Reference Range Interpretation Comments PREALBUMIN (test code = PREALB) 16.6 MG/ML 15-42 N [id number] 06:45:00 Test Item Value Reference Range Interpretation Comments PHOSPHOROUS (test code = PHOS) 3.9 mg/dL 2.7-4.5 N [id number] 06:45:00 Test Item Value Reference Range Interpretation Comments TRIGLYCERIDES (test code = TRIG) mg/dL 35-160 [id number] 06:45:00 Test Item Value Reference Range Interpretation Comments MAGNESIUM (test code = MAG) 1.7 mg/dL 1.4-2.6 N [id number] 06:45:00 Test Item Value Reference Range Interpretation Comments PREALBUMIN (test code = PREALB) 16.6 MG/ML 15-42 N BASIC METABOLIC [id number] 06:12:00 Test Item Value Reference Range Interpretation [...] code 9.2 mg/dL 8.8-10.2 N = CA) [id number] 06:11:00 Test Item Value Reference Range Interpretation Comments AMYLASE (test code = ADINA) 79 U/L 0-100 N [id number] 06:11:00 Test Item Value Reference Range Interpretation Comments LIPASE (test code = LIP) 150 U/L 0-190 N LIVER FUNCTION [id number] 06:11:00 Test Item Value Reference Range Interpretation [...] 59 U/L 45-120 N ALKP) CBC W/AUTO [id number] 04:32:00 Test Item Value Reference Range Interpretation [...] x10 3/uL 0.0-0.20 N - XR SMALL [id number] 17:02:00Patient Name: MARIA VICTORIA WOOD Unit No: [id number] EXAMS: CPT CODE: [id number] XR SMALL BOWEL [id number] Indication: Upper abdominal pain. COMPARISON: CT study [...] Care Physician; Cristian Gudino MD Technologist: Eugenio Ocasio Fluoro Time: DAP (Gy m2): Air Kerma (mGy): Trscr Dt/Tm: 03/26/2019 (170) by:[email or web address] Printed Date/Time: 03/26/2019 (0857) Name: ISRAELMARIA VICTORIA [facility] Phys: Dmitry Andrade MD [address] : 1985 Age: 33 Sex: M [place], [place] [id number] Loc: P.0727 1 Exam Date: 03/26/2019 Status: ADM IN PH: FAX: PAGE 1 Signed ReportCBC W/AUTO [id number] 06:51:00 Test Item Value Reference Range Interpretation [...] 0.01 x10 3/uL 0.0-0.20 N BASIC METABOLIC [id number] 06:36:00 Test Item Value Reference Range Interpretation [...] mg/dL 8.8-10.2 L = CA) BASIC METABOLIC [id number] 09:22:00 Test Item Value Reference Range Interpretation [...] 9.3 mg/dL 8.8-10.2 = CA) LIVER FUNCTION [id number] 09:22:00 Test Item Value Reference Range Interpretation [...] code = 56 U/L 45-120 N ALKP) [id number] 09:22:00 Test Item Value Reference Range Interpretation Comments AMYLASE (test code = ADINA) 124 U/L 0-100 H [id number] 09:22:00 Test Item Value Reference Range Interpretation Comments LIPASE (test code = LIP) 157 U/L 0-190 N CBC W/AUTO [id number] 05:40:00 Test Item Value Reference Range Interpretation [...] 3/uL 0.0-0.20 N - CT ABD PELVIS [id number] 14:23:00Patient Name: MARIA VICTORIA WOOD Unit No: [id number] EXAMS: CPT CODE: [id number] CT ABD PELVIS W/CONT 60092 HISTORY: abdominal pain n/v. Bariatric surgery 2 [...] process is identified. Name: MARIA VICTORIA WOOD [facility] Phys: Rizwana Anthony MD [address] : 1985 Age: 33 Sex: [place] [address] Loc: P.ERS Exam Date: 03/23/2019 Status: REG ER PH: FAX: PAGE 1 Signed Report (JOE NUED) Patient Name: MARIA VICTORIA WOOD Unit No: [id number] EXAMS: CPT CODE: [id number] CT ABD PELVIS [id number] <Continued> at 1927 Reported and signed by: Cayetano Cornejo MD CC: Rizwana Maldonado MD Technologist: Chiqui Flynn CTDI: 23.15 DLP: 1565 Trscr Dt/Tm: 03/23/2019 (3446) by:[email or web address] Printed Date/Time: 03/23/2019 (1106) Name: MARIA VICTORIA WOOD [facility] Phys: Rizwana Anthony MD [address] : 1985 Age: 33 Sex: [place] [address] Loc: P.ERS Exam Date: 03/23/2019Status: REG ER PH: FAX: PAGE 2 Signed ReportUA RFLX MICR CULT IF [id number] 13:40:00 Test Item Value Reference Range Interpretation [...] PHOSPHATASE (test code = ALKP) LIVER FUNCTION [id number] 11:09:00 Test Item Value Reference Range Interpretation [...] code = 63 U/L 45-120 N ALKP) [id number] 11:09:00 Test Item Value Reference Range Interpretation Comments LIPASE (test code = LIP) 300 U/L 0-190 H CBC W/AUTO [id number] 10:42:00 Test Item Value Reference Range Interpretation [...] XRAY KNEE 4 OR MORE VWS BILATERAL [id number] 11:47:00Images acquired, not reported on this accession number.[facility]
[2021-05-30 18:15] LABS: Absolute Lymphocytes (CBC) 1.7 K/uL (0.7-4.9); Hematocrit 46.4 % (39.6-49.0); Lymphocytes % 33.7 % (15.3-44.8); RBC Red Blood Cell Count 5.06 M/uL (4.33-5.43)
[2021-05-30 18:28] LABS: Albumin 3.8 g/dL (3.4-5.0); Bilirubin Direct 0.1 mg/dL (0-0.2); Bilirubin Total 0.5 mg/dL (0.2-1.0); Potassium 3.6 mmol/L (3.5-5.1)
[2021-05-30] MEDS ORDERED: PANTOPRAZOLE 40 MG INJ ONE (19:00)
[2021-05-30] MEDS ORDERED: MORPHINE 4 MG/ML SYR ONE ×2 (19:00→20:42)
[2021-05-30] MEDS ORDERED: ONDANSETRON 4 MG/2 ML VIAL ONE ×2 (19:00→20:42)
--- NOTE | 2021-05-30 20:52 | ER ---
Nurse's Notes [facility] Name: Terrell Dos Santos Age: 36 yrs Sex: Male : 1985 Arrival Date: 05/30/2021 Time: 17:05 Bed 28 Private MD: Diagnosis: Upper abdominal pain, unspecified;Esophagitis, unspecified Presentation: 05/30 17:28 Chief complaint: Patient states: Had EGD with Dr. Camara today. LUQ abd pain started ll1 right after procedure. + N/V. Coronavirus screen: Vaccine status: Patient reports receiving the 2nd dose of the covid vaccine. Client denies travel out of the [place] in the last 14 days. At this time, the client does not indicate any symptoms associated with coronavirus-19. Ebola Screen: Patient denies travel to an Ebola-affected area in the 21 days before illness onset. Initial Sepsis Screen: Does the patient meet any 2 criteria? HR > 90 bpm. No. Patient's initial sepsis screen is negative. Does the patient have a suspected source of infection? Yes: Acute abdominal pain. Risk Assessment: Do you want to hurt yourself or someone else? Patient reports no desire to harm self or others. Onset of symptoms was May 30, 2021. 17:28 Method Of Arrival: Ambulatory ll1 17:28 Acuity: GAUTAM 3 ll1 Historical: - Allergies: 17:29 Celebrex; ll1 - PMHx: 17:29 PTSD; migraines; ll1 - PSHx: 17:29 Cholecystectomy; gastric sleeve; left knee; ll1 - Immunization history:: Client reports receiving the 2nd dose of the Covid vaccine. - Social history:: Smoking status: Patient/guardian denies using tobacco. - Family history:: not pertinent. - Hospitalizations: : No recent hospitalization is reported. Screenin:00 Abuse screen: Denies threats or abuse. Denies injuries from another. Nutritional eo2 screening: No deficits noted. Tuberculosis screening: No symptoms or risk factors identified. Fall Risk None identified. Assessment: 18:00 General: Appears in no apparent distress. comfortable, Behavior is calm, cooperative. eo2 Pain: Complains of pain in left abdomen radiating to left back. Neuro: Level of Consciousness is awake, alert, obeys commands, Oriented to person, place, time, situation, Reports dizziness. Cardiovascular: Denies chest pain, Heart tones S1 S2 Capillary refill < 3 seconds. Respiratory: Reports shortness of breath Airway is patent Trachea midline Respiratory effort is even, unlabored, Respiratory pattern is regular, symmetrical, Breath sounds are clear bilaterally. GI: Bowel sounds present X 4 quads. Abdomen is tender to palpation left abdominal pain sharp stabbing to left back x 2 days, worsened today after EGD Reports nausea, vomiting, Patient currently denies diarrhea. : No deficits noted. No signs and/or symptoms were reported regarding the genitourinary system. 19:23 Reassessment: Pt to CT via stretcher. vc1 19:38 Reassessment: Pt back from CT. States pain has decreased. vc1 Vital Signs: 17:28 BP 130 / 88; Pulse 100; Resp 17; Temp 98.1; Pulse Ox 95% ; Weight 107.5 kg; Height 6 ll1 ft. 3 in. (190.50 cm); Pain 8/10; 18:00 BP 137 / 85; Pulse 83; Resp 15; Pulse Ox 95% ; Pain 8/10; eo2 19:00 BP 115 / 80; Pulse 85; Resp 17; Pulse Ox 95% ; Pain 8/10; eo2 19:39 BP 115 / 82; Pulse 73; Resp 18; Pulse Ox 98% ; vc1 20:00 BP 118 / 65; Pulse 80; Resp 18; Pulse Ox 100% on R/A; vc1 21:00 BP 132 / 96; Pulse 73; Resp 17; Pulse Ox 98% on R/A; vc1 21:00 BP 132 / 96; Pulse 71; Resp 16; Pulse Ox 97% on R/A; vc1 17:28 Body Mass Index 29.62 (107.50 kg, 190.50 cm) ll1 ED Course: 17:05 Patient arrived in ED. mr 17:29 Triage completed. ll1 17:30 Arm band placed on Patient placed in an exam room, on a stretcher. ll1 17:46 Nikki Carmona, RN is Primary Nurse. eo2 18:00 Patient has correct armband on for positive identification. Pulse ox on. NIBP on. Door eo2 closed. Noise minimized. 18:00 No provider procedures requiring assistance completed. eo2 18:00 Inserted saline lock: 20 gauge in left antecubital area, using aseptic technique. Blood eo2 collected. 18:26 Augusto Bob MD is Attending Physician. rn 19:03 Primary Nurse role handed off by Nikki Carmona RN mw2 19:07 Report given to Lou SHARIF. eo2 19:09 XRAY Chest (1 view) In Process Unspecified. EDMS 19:12 Lou hCan RN is Primary Nurse. vc1 19:17 Attending Physician role handed off by Augusto Bob MD kevin 19:17 Orion Reese MD is Attending Physician. kevin 19:29 CT Abd/Pelvis - IV Contrast Only In Process Unspecified. EDMS 20:51 Alvaro Camara MD is Referral Physician. kevin 20:53 Alvaro Camara MD is Referral Physician. kevin 20:53 Alvaro Camara MD is Referral Physician. kevin 20:54 Alvaro Camara MD is Referral Physician. kevin 21:18 IV discontinued, intact, bleeding controlled, No redness/swelling at site. Pressure vc1 dressing applied. Administered Medications: 19:00 Drug: ProTONIX (pantoprazole) 40 mg Route: IVP; Site: left antecubital; eo2 19:39 Follow up: Response: No adverse reaction; Marked relief of symptoms vc1 19:04 Drug: morphine 4 mg Route: IVP; Site: left antecubital; eo2 19:39 Follow up: BP 115 / 82; Pulse 73 bpm; Resp 18 bpm; Pulse Ox 98% ; Response: No adverse vc1 reaction; Marked relief of symptoms; Pain is decreased 19:04 Drug: Zofran (Ondansetron) 4 mg Route: IVP; Site: left antecubital; eo2 19:39 Follow up: Response: No adverse reaction; Marked relief of symptoms; Nausea is decreasedvc1 20:44 Drug: morphine 4 mg Route: IVP; Site: left antecubital; vc1 21:00 Follow up: BP 132 / 96; Pulse 71 bpm; Resp 16 bpm; Pulse Ox 97% RA; Response: No vc1 adverse reaction; Pain is decreased 20:44 Drug: Zofran (Ondansetron) 4 mg Route: IVP; Infused Over: 2 mins; Site: left vc1 antecubital; 21:10 Follow up: Response: No adverse reaction; Nausea is decreased vc1 Outcome: 20:51 Discharge ordered by . kevin 20:53 Discharge ordered by . kevin 20:53 Discharge ordered by . kevin 20:55 Discharge ordered by MD. kevin 21:15 Discharged to home ambulatory. vc1 21:15 Condition: good 21:15 Discharge instructions given to patient, Instructed on discharge instructions, follow up and referral plans. medication usage, Demonstrated understanding of instructions, follow-up care, medications, Prescriptions given X 4. 21:18 Patient left the ED. vc1 Signatures: Dispatcher [employer] EDMS Orion Reese MD MD cha Rivera, Mary mr Nieto, Roman, MD MD rn Westbrook, Stefan mw2 Odette Pichardo RN RN ll1 Nikki Carmona RN RN eo2 Luo Chan RN RN vc1 Corrections: (The following items were deleted from the chart) 21:18 19:39 BP 115 / 82; Pulse 73 bpm; Resp 18 bpm; Pulse Ox 98% ; Response: No adverse vc1 reaction; Marked relief of symptoms; Pain is decreased vc1
--- NOTE | 2021-05-30 20:52 | EDPHYS ---
Physician Documentation [facility] Name: Terrell Dos Santos Age: 36 yrs Sex: Male : 1985 Arrival Date: 05/30/2021 Time: 17:05 Bed 28 Private MD: YARIEL Physician Orion Reese HPI: 05/30 18:27 This 36 yrs old Male presents to ER via Ambulatory with complaints of Abdominal Pain, rn Nausea. 18:27 The patient presents to the emergency department with nausea, abdominal pain. Onset: rn The symptoms/episode began/occurred just prior to arrival. Possible causes: unknown. The symptoms are aggravated by pressure, The symptoms are alleviated by nothing. Associated signs and symptoms: Pertinent positives: abdominal pain, belching, nausea. Severity of symptoms: At their worst the symptoms were severe in the emergency department the symptoms have improved. The patient has experienced similar episodes in the past. The patient has been recently seen by a physician:. Pt just had EGD done for GERD symptoms, reports epigastric abd pain for last 2 days. After EGD, had severe upper abd pain despite multiple rounds of pain medication administration. Dr. Camara sent patient in for imaging to rule out iatrogenic cause of pain such as perforation. Patient states has also had pancreatitis in past and feels similar. Does feel better than he did.. Historical: - Allergies: 17:29 Celebrex; ll1 - PMHx: 17:29 PTSD; migraines; ll1 - PSHx: 17:29 Cholecystectomy; gastric sleeve; left knee; ll1 - Immunization history:: Client reports receiving the 2nd dose of the Covid vaccine. - Social history:: Smoking status: Patient/guardian denies using tobacco. - Family history:: not pertinent. - Hospitalizations: : No recent hospitalization is reported. ROS: 18:27 Constitutional: Negative for fever, chills, and weight loss, Eyes: Negative for injury, rn pain, redness, and discharge, ENT: Negative for injury, pain, and discharge, Neck: Negative for injury, pain, and swelling, Cardiovascular: Negative for chest pain, palpitations, and edema, Respiratory: Negative for shortness of breath, cough, wheezing, and pleuritic chest pain, Abdomen/GI: + abd pain and nausea, + belching Back: Negative for injury and pain, MS/Extremity: Negative for injury and deformity, Skin: Negative for injury, rash, and discoloration, Neuro: Negative for headache, weakness, numbness, tingling, and seizure. Exam: 18:27 Constitutional: This is a well developed, well nourished patient who is awake, alert, rn appears anxious and uncomfortable. Constant belching. Head/Face: Normocephalic, atraumatic. Eyes: Periorbital areas with no swelling, redness, or edema. Cardiovascular: Tachycardic, regular Respiratory: No increased work of breathing, no retractions or nasal flaring. Abdomen/GI: soft, mild LUQ and epigastric tenderness, no rebound, non-distended Skin: Warm, dry MS/ Extremity: Pulses equal, no cyanosis. Neuro: Awake and alert, GCS 15 Vital Signs: 17:28 BP 130 / 88; Pulse 100; Resp 17; Temp 98.1; Pulse Ox 95% ; Weight 107.5 kg; Height 6 ll1 ft. 3 in. (190.50 cm); Pain 8/10; 18:00 BP 137 / 85; Pulse 83; Resp 15; Pulse Ox 95% ; Pain 8/10; eo2 19:00 BP 115 / 80; Pulse 85; Resp 17; Pulse Ox 95% ; Pain 8/10; eo2 19:39 BP 115 / 82; Pulse 73; Resp 18; Pulse Ox 98% ; vc1 20:00 BP 118 / 65; Pulse 80; Resp 18; Pulse Ox 100% on R/A; vc1 21:00 BP 132 / 96; Pulse 73; Resp 17; Pulse Ox 98% on R/A; vc1 21:00 BP 132 / 96; Pulse 71; Resp 16; Pulse Ox 97% on R/A; vc1 17:28 Body Mass Index 29.62 (107.50 kg, 190.50 cm) ll1 MDM: 18:26 Patient medically screened. rn 19:04 Transition of care: After a detail discussion of the patient's case, care is rn transferred to Orion Reese MD. 20:50 Differential diagnosis: Nonspecific abd pain, gastritis, pancreatitis. Data reviewed: kevin vital signs, nurses notes, lab test result(s), EKG, radiologic studies, CT scan, plain films. Data interpreted: secured entrance monitor: rate is 98 beats/min, rhythm is regular, Pulse oximetry: on room air is 98 %. Test interpretation: by ED physician or midlevel provider: plain radiologic studies. 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 05/30 17:43 Order name: Basic Metabolic Panel; Complete Time: 18:32 rn 05/30 17:43 Order name: CBC with Diff; Complete Time: 18:32 rn 05/30 17:43 Order name: Hepatic Function; Complete Time: 18:32 rn 05/30 17:43 Order name: Lipase; Complete Time: 18:32 rn 05/30 18:08 Order name: CT Abd/Pelvis - IV Contrast Only rn 05/30 18:08 Order name: XRAY Chest (1 view) rn 05/30 17:43 Order name: IV Saline Lock; Complete Time: 18:29 rn 05/30 17:43 Order name: Labs collected and sent; Complete Time: 18:29 rn 05/30 18:08 Order name: NPO; Complete Time: 19:13 rn Administered Medications: 19:00 Drug: ProTONIX (pantoprazole) 40 mg Route: IVP; Site: left antecubital; eo2 19:39 Follow up: Response: No adverse reaction; Marked relief of symptoms vc1 19:04 Drug: morphine 4 mg Route: IVP; Site: left antecubital; eo2 19:39 Follow up: BP 115 / 82; Pulse 73 bpm; Resp 18 bpm; Pulse Ox 98% ; Response: No adverse vc1 reaction; Marked relief of symptoms; Pain is decreased 19:04 Drug: Zofran (Ondansetron) 4 mg Route: IVP; Site: left antecubital; eo2 19:39 Follow up: Response: No adverse reaction; Marked relief of symptoms; Nausea is decreasedvc1 20:44 Drug: morphine 4 mg Route: IVP; Site: left antecubital; vc1 21:00 Follow up: BP 132 / 96; Pulse 71 bpm; Resp 16 bpm; Pulse Ox 97% RA; Response: No vc1 adverse reaction; Pain is decreased 20:44 Drug: Zofran (Ondansetron) 4 mg Route: IVP; Infused Over: 2 mins; Site: left vc1 antecubital; 21:10 Follow up: Response: No adverse reaction; Nausea is decreased vc1 Disposition Summary: 05/30/21 20:55 Discharge Ordered Location: Home(05/30/21 20:55) kevin Problem: new(05/30/21 20:55) kevin Symptoms: have improved(05/30/21 20:55) kevin Condition: Stable(05/30/21 20:55) kevin Diagnosis - Upper abdominal pain, unspecified kevin - Esophagitis, unspecified(05/30/21 20:55) kevin Followup: kevin - With: Private Physician - When: 1 - 2 days - Reason: Recheck today's complaints, Continuance of care, Re-evaluation by your physician Followup: kevin - With: - When: 1 - 2 days - Reason: Recheck today's complaints, Continuance of care, Re-evaluation by your physician Discharge Instructions: - Discharge Summary Sheet kevin - Abdominal Pain, Adult kevin - Esophagitis kevin - Abdominal Pain, Adult, Efag-cf-Iss[facility] Forms: - Medication Reconciliation Form kevin - Thank You Letter kvein - Antibiotic Education kevin - Prescription Opioid Use [facility] Prescriptions: - ondansetron 4 mg Oral tablet,disintegrating - place 1 tablet by TRANSLINGUAL route every 8 hours; 20 tablet; Refills: 0, [facility] Product Selection Permitted - Protonix 40 mg Oral tablet,delayed release (DR/EC) - take 1 tablet by ORAL route every 12 hours; 40 tablet; Refills: 0, Product kevin Selection Permitted - dicyclomine 20 mg Oral Tablet - take 1 tablet by ORAL route 4 times per day; 28 tablet; Refills: 0, Product [facility] Selection Permitted - Tylenol-Codeine #3 300 mg-30 mg Oral - take 2 tablet by ORAL route every 6 hours; 20 tablet; Refills: 0, Product kevin Selection Permitted Signatures: Dispatcher [employer] EDOrion Causey MD MD cha Nieto, Roman, MD MD rn Lewis, Lynsay, RN RN ll1 Nikki Carmona RN RN eo2 Lou Chan RN RN vc1 Corrections: (The following items were deleted from the chart) 20:53 20:51 Home kevin kevin 20:53 20:51 new kevin kevin 20:53 20:51 have improved kevin kevin 20:53 20:51 Stable kevin kevin 20:53 20:51 Chest pain, unspecified kevin kevin 20:53 20:51 Strain of muscle and tendon of front wall of thorax kevin kevin 20:53 20:51 Strain of muscle and tendon of thorax kevin kevin 20:53 20:52 Esophagitis, unspecified kevin kevin 20:53 20:53 Home kevin kevin 20:53 20:53 new kevin kevin 20:53 20:53 have improved kevin kevin 20:53 20:53 Stable kevin kevin 20:53 20:53 Chest pain, unspecified kevin kevin 20:53 20:53 Strain of muscle and tendon of front wall of thorax kevin kevin 20:53 20:53 Strain of muscle and tendon of thorax kevin kevin 20:54 20:53 Home kevin kevin 20:54 20:53 new kevin kevin 20:54 20:53 have improved kevin kevin 20:54 20:53 Stable kevin kevin 20:54 20:53 Chest pain, unspecified kevin kevin 20:54 20:53 Strain of muscle and tendon of front wall of thorax kevin kevin 20:54 20:53 Strain of muscle and tendon of thorax [facility] kevin
[2021-05-30 23:00] VITALS: TEMP 98.1
[2021-05-30 23:06] VITALS: BP 132/96; O2SAT 98
--- NOTE | 2021-05-31 07:46 | RAD REPORT ---
EXAM DESCRIPTION: [facility] Single View05/30/2021 7:09 pm CLINICAL HISTORY: Abdominal pain COMPARISON: none FINDINGS: A few areas of subsegmental atelectasis left lung base. Remainder lungs appear clear. Hea rt is normal size. Free air is not visualized beneath the diaphragm
--- NOTE | 2021-05-31 09:46 | RAD REPORT ---
EXAM DESCRIPTION: CT - Abdomen Pelvis W Contrast - 05/31/2021 6:44 am CLINICAL HISTORY: 36 years Male Abdominal pain s/p EGC, eval for perforation. TECHNIQUE: Contiguous axial images obtained through the abdomen and pelvis following intravenous con trast administration. Coronal and sagittal reformatted images provided. This CT exam was performed according to our departmental dose-optimization program, which includes on e or more of the following dose reduction techniques: automated exposure control, adjustment of the m A and/or kV according to patient size, and/or use of iterative reconstruction technique. COMPARISON: No prior exams provided for comparison. FINDINGS: Small focal scanner artifact near the center of all images. Minimal bibasilar atelectasis. Prior cholecystectomy without biliary dilatation. The liver, pancreas, spleen, adrenal glands, kidneys, urinary bladder, and osseous structures are nor mal. Mild thickening of the distal esophagus. Prior gastric sleeve surgery. No other bowel wall thickening . No bowel obstruction, free intraperitoneal air, or ascites. The appendix is normal. IMPRESSION: Mild thickening of the distal esophagus. No other acute findings in the abdomen or pelvi s. Electronically signed by: Umm Carcamo MD 05/30/2021 8:38 PM [employer] Due to temporary technical issues with the PACS/Fluency reporting system, reports are being signed by the in house radiologist without review as a courtesy to ensure prompt reporting. The interpreting r adiologist is fully responsible for the content of the report.
== END 2021-05-30 21:18 | disposition home or self-care (01) ==
LOC: ER 17:02
DX: K20.90 Esophagitis, unspecified without bleeding (principal); Z88.6 Allergy status to analgesic agent
CPT/HCPCS: 85025; 80048; 36415; 80076; 83690; 74177; 71045; Q9967; C9113; J2405 ×2; 96374; 96375; 99284